=== PATIENT | female | born 1950 | race Caucasian/White ===

== ENCOUNTER 2016-10-08 11:17 | Inpatient (IN) | payer OTHER, MEDICAID ==
--- NOTE | 2016-10-08 11:52 | CPEKG ---
Heart Rate: 91 RR Interval: 659 P-R Interval: 132 QRSD Interval: 88 QT Interval: 388 QTC Interval: 478 P [place]: 62 QRS [place]: 38 T Wave [place]: 35 EKG Severity - BORDERLINE ECG - EKG Impression: SINUS RHYTHM EKG Impression: BORDERLINE INFERIOR Q WAVES Electronically Signed By: Joe Luo 08-Oct-2016 15:39:50
[2016-10-08] MEDS ORDERED: NS 1,000 ML IV ONE ×3 (12:03→19:00)
--- NOTE | 2016-10-08 12:11 | EDPHY ---
H & P Smoking Status: Never smoked Time Seen by Provider: 10/08/16 11:47 HPI/ROS: Chief complaint. Abdominal pain HPI. 66-year-old female with 3 day history of abdominal pain progressively worsening. It is described as epigastric and crampy. No radiation. Nausea but no vomiting. She has had diarrhea as well. She denies chest discomfort or trouble breathing. She has not had a fever. She had similar symptoms previously with a gallstone in the common bile duct that was removed endoscopically. She does continue to have her gallbladder. She does tell me bend that yesterday she did have some burning in her chest just briefly. ROS Constitutional. no fever/chills, no weakness Eyes. no problems with vision ENT. no sore throat, no nasal drainage Cardiovascular. Burning chest Respiratory. no shortness of breath, no cough Abdominal. Upper abdominal pain with nausea and diarrhea . no problems urinating MS. no calf pain/swelling, no neck/back pain, no joint pain Skin. no rash Lymph. no swollen glands Neuro. no headache, no dizziness, no difficulty walking or with speech (Joe Luo) Past Medical/Surgical History: Past medical history significant only for gallstone (Joe Luo) Social History: Single, nonsmoker, no alcohol (Joe Luo) Physical Exam: General Appearance: Alert pleasant well-developed female moderate distress vital signs are stable Eyes: Pupils equal and round no pallor or injection. ENT, Mouth: Mucous membranes are moist. Respiratory: There are no retractions, lungs are clear to auscultation. Cardiovascular: Regular rate and rhythm. Gastrointestinal: Abdomen is soft with some tenderness in the epigastrium. No right upper quadrant tenderness. No masses. Bowel sounds normal Neurological: Awake and alert, sensory and motor exams grossly normal. Skin: Warm and dry, no rashes. Musculoskeletal: Neck is supple nontender. Extremities symmetrical, full range of motion. Psychiatric: Patient is oriented X 3, there is no agitation. (Joe Luo) Constitutional: Initial Vital Signs Temperature (C) 37.0 C 10/08/16 11:26 Heart Rate 89 10/08/16 11:26 Respiratory Rate 20 10/08/16 11:26 Blood Pressure 149/105 H 10/08/16 11:26 O2 Sat (%) 97 10/08/16 11:26 O2 Delivery Mode Oxymask O2 (L/minute) 6 Allergies/Adverse Reactions: Penicillins Allergy (Verified 10/08/16 16:04) Other-Enter Comments Home Medications: Medication Instructions Recorded NK [No Known Home Meds] 10/08/16 Medical Decision Making - Diagnostics Imaging Results: Imaging Impressions Abdomen Ultrasound 10/08/16 12:18 Impression: 1. Cholelithiasis. Gallbladder wall is minimally thickened, but no pericholecystic fluid or hyperemia, possible component of chronic cholecystitis. Mild intrahepatic biliary ductal dilatation. The common bile duct measures 9 mm. 2. Stable right adrenal gland mass comparing ultrasound to prior CT. With the stability in size and prior CT appearance, it is most compatible with a benign adenoma. Chest X-Ray 10/08/16 14:25 Impression: Poor inspiratory effort with bronchovascular crowding at both lower lobes. Mild atelectasis left lower lobe. Probable mild underlying bronchitis. One-view chest x-ray shows poor inspiration but no evidence for pneumonia ( Joe Luo) Procedures: IV normal saline. Dilaudid for pain. Zofran for nausea. Subsequently the patient is complaining of back spasms. She is given Valium intravenously which helped resolve her back spasms (Joe Luo) ED Course/Re-evaluation: Apparently the blood work that was obtained was dilute so the patient is having her lab work redrawn. CT scan of the abdomen is ordered (Joe Luo) Differential Diagnosis: Differential diagnosis considered includes perforation, obstruction, pancreatitis, choledocholithiasis, cholecystitis (Nito Mckeon) Other Provider: I assumed care of the patient at 3:30 p.m. I reviewed her labs, she has elevated transaminases and alkaline phos. The consulted with Dr. Leslie who is on-call for Gastroenterology will see the patient in consultation. I consulted with Dr. Savage Garland who will admit the patient. I re-evaluated the patient personally at 4:00 p.m. She reports her pain has improved. She has minimal tenderness on exam. I do feel that she should be admitted to the hospital. I have canceled her abdominal CT. I will defer to the hospitalist service for consideration of general surgery consultation. (Nito Mckeon) Care Turn Over: Dr. Mckeon at 3:15 p.m. (Joe Luo) - Data Points Laboratory Results: Laboratory Results 10/08/16 14:57 10/08/16 14:57 10/08/16 10/08/16 10/08/16 14:57 14:57 14:33 WBC 6.32 10^3/uL 10^3/uL REJ (3.80-9.50) RBC 4.70 10^6/uL 10^6/uL REJ (4.18-5.33) Hgb 14.9 g/dL g/dL REJ (12.6-16.3) Hct 43.4 % % REJ (38.0-47.0) MCV 92.3 fL fL REJ (81.5-99.8) MCH 31.7 pg pg REJ (27.9-34.1) MCHC 34.3 g/dL g/dL REJ (32.4-36.7) RDW 12.6 % % REJ (11.5-15.2) Plt Count 197 10^3/uL 10^3/uL REJ (150-400) MPV 8.4 fL L fL REJ (8.7-11.7) Neut % (Auto) Not Reported REJ Lymph % (Auto) Not Reported REJ [place] % (Auto) Not Reported REJ Eos % (Auto) Not Reported REJ Baso % (Auto) Not Reported REJ Nucleat RBC Rel Count 0.0 % % REJ (0.0-0.2) Absolute Neuts (auto) Not Reported REJ Absolute Lymphs (auto) Not Reported REJ Absolute Monos (auto) Not Reported REJ Absolute Eos (auto) Not Reported REJ Absolute Basos (auto) Not Reported REJ Absolute Nucleated RBC 0.00 10^3/uL 10^3/uL REJ (0-0.01) Immature Gran % Not Reported REJ Seg Neutrophils % 77 % % Band Neutrophils % 13 % % Lymphocytes % 10 % % Immature Gran # Not Reported REJ Absolute Seg Neuts 4.87 10^/uL 10^/uL (1.70-6.50) Absolute Band Neuts 0.82 10^3/uL H 10^3/uL (0.00-0.70) Absolute Lymphocytes 0.63 10^3/uL L 10^3/uL (1.00-3.00) RBC/WBC/PLT Morphology NORMAL (NORMAL) Platelet Estimate ADEQUATE (ADEQ) Turbidity Sodium 144 mEq/L mEq/L (134-144) Potassium 3.6 mEq/L mEq/L (3.5-5.2) Chloride 111 mEq/L H mEq/L (97-110) Carbon Dioxide 20 mEq/l L mEq/l (22-31) Anion Gap 13 mEq/L mEq/L (8-16) BUN 14 mg/dL mg/dL (7-23) Creatinine 0.9 mg/dL mg/dL (0.6-1.0) Estimated GFR > 60 Glucose 131 mg/dL H mg/dL (70-100) Calcium 8.5 mg/dL mg/dL (8.5-10.4) Total Bilirubin 3.0 mg/dL H mg/dL (0.1-1.4) Conjugated Bilirubin 1.9 mg/dL H mg/dL (0.0-0.5) Unconjugated Bilirubin 1.1 mg/dL mg/dL (0.0-1.1) AST 849 IU/L H IU/L (14-46) ALT 511 IU/L H IU/L (9-52) Alkaline Phosphatase 194 IU/L H IU/L (38-126) Troponin I < 0.012 ng/mL ng/mL (0-0.034) Total Protein 7.1 g/dL g/dL (6.3-8.2) Albumin 4.1 g/dL g/dL (3.5-5.0) Lipase 145.0 IU/L IU/L (23-300) Specimen Hemolysis 10/08/16 10/08/16 14:33 12:45 WBC REJ RBC REJ Hgb REJ Hct REJ MCV REJ MCH REJ MCHC REJ RDW REJ Plt Count REJ MPV REJ Neut % (Auto) REJ Lymph % (Auto) REJ [place] % (Auto) REJ Eos % (Auto) REJ Baso % (Auto) REJ Nucleat RBC Rel Count REJ Absolute Neuts (auto) REJ Absolute Lymphs (auto) REJ Absolute Monos (auto) REJ Absolute Eos (auto) REJ Absolute Basos (auto) REJ Absolute Nucleated RBC REJ Immature Gran % REJ Seg Neutrophils % Band Neutrophils % Lymphocytes % Immature Gran # REJ Absolute Seg Neuts Absolute Band Neuts Absolute Lymphocytes RBC/WBC/PLT Morphology Platelet Estimate Turbidity Cancelled Sodium Cancelled Potassium Cancelled Chloride Cancelled Carbon Dioxide Cancelled Anion Gap Cancelled BUN Cancelled Creatinine Cancelled Estimated GFR Cancelled Glucose Cancelled Calcium Cancelled Total Bilirubin Cancelled Conjugated Bilirubin Cancelled Unconjugated Bilirubin Cancelled AST Cancelled ALT Cancelled Alkaline Phosphatase Cancelled Troponin I Cancelled Total Protein Cancelled Albumin Cancelled Lipase Cancelled Specimen Hemolysis Cancelled Medications Given: Discontinued Medications Diazepam (Valium Injection) 5 mg IVP EDNOW ONE Stop: 10/08/16 14:12 Last Admin: 10/08/16 14:47 Dose: 5 mg Hydromorphone HCl (Dilaudid) 1 mg IVP EDNOW ONE Stop: 10/08/16 12:19 Last Admin: 10/08/16 12:25 Dose: 1 mg Sodium Chloride (Ns) 1,000 mls @ 0 mls/hr IV ONCE ONE PRN Reason: Wide Open Stop: 10/08/16 12:04 Last Admin: 10/08/16 12:04 Dose: 1,000 mls Sodium Chloride (Ns) 1,000 mls @ 0 mls/hr IV ONCE ONE; Wide Open PRN Reason: Protocol Stop: 10/08/16 12:19 Last Admin: 10/08/16 15:04 Dose: 1,000 mls Ondansetron HCl (Zofran) 4 mg IVP EDNOW ONE Stop: 10/08/16 12:19 Last Admin: 10/08/16 12:26 Dose: 4 mg Departure - Departure Disposition: [facility] Inpatient Acute Clinical Impression: Choledocholithiasis Condition: Fair
[2016-10-08] MEDS ORDERED: HYDROmorphONE/DILAUDID 1 MG/ML SYR IVP ONE (12:18)
[2016-10-08] MEDS ORDERED: ONDANSETRON 4 MG/2 ML VIAL IVP ONE (12:18)
[2016-10-08] MEDS ORDERED: ONDANSETRON 4 MG/2 ML VIAL ONE (14:00)
[2016-10-08] MEDS ORDERED: DIAZEPAM 10 MG/2 ML SYR IVP ONE (14:11)
[2016-10-08 15:07] LABS: ADD MORPH? NO; ATYPICAL LYMPHOCYTE FLAG 0 (0-99); FRAGMENT RBC FLAG 0 (0-99); HEMATOCRIT 43.4 % (38.0-47.0); HEMOGLOBIN 14.9 g/dL (12.6-16.3); LIPEMIA HEMOLYSIS FLAG 90 (0-99); MEAN CELL HEMOGLOBIN 31.7 pg (27.9-34.1); MEAN CELL HEMOGLOBIN CONCENTR. 34.3 g/dL (32.4-36.7); MEAN CELL VOLUME 92.3 fL (81.5-99.8); MEAN PLATELET VOLUME 8.4 fL (8.7-11.7); PLATELET CLUMPS FLAG 0 (0-99); PLATELET COUNT 197 10^3/uL (150-400); RED CELL DISTRIBUTION WIDTH 12.6 % (11.5-15.2)
[2016-10-08 15:09] LABS: ADD DIFF? YES; ADD SCAN? NO; LEFT SHIFT FLG 140 (0-99)
[2016-10-08 15:26] LABS: ALANINE AMINOTRANSFERASE 511 IU/L (9-52); ALBUMIN 4.1 g/dL (3.5-5.0); ALKALINE PHOSPHATASE 194 IU/L (38-126); ANION GAP 13 mEq/L (8-16); BILIRUBIN-CONJUGATED 1.9 mg/dL (0.0-0.5); BILIRUBIN-UNCONJUGATED 1.1 mg/dL (0.0-1.1); CALCIUM 8.5 mg/dL (8.5-10.4); CARBON DIOXIDE 20 mEq/l (22-31); CHLORIDE 111 mEq/L (97-110); CREATININE 0.9 mg/dL (0.6-1.0); GLOMERULAR FILTRATION RATE > 60; GLUCOSE 131 mg/dL (70-100); POTASSIUM 3.6 mEq/L (3.5-5.2); SODIUM 144 mEq/L (134-144); TOTAL PROTEIN 7.1 g/dL (6.3-8.2)
[2016-10-08 15:32] LABS: ASPARTATE AMINOTRANSFERASE 849 IU/L (14-46)
[2016-10-08 15:37] LABS: TROPONIN I < 0.012 ng/mL (0-0.034)
[2016-10-08 15:45] LABS: PLATELET ESTIMATE ADEQUATE (ADEQ)
[2016-10-08] MEDS ORDERED: IOPAMIDOL (ISOVUE-300) 100 ML BTL ONE (15:59)
[2016-10-08] MEDS ORDERED: LORazepam 1 MG TAB PO PRN (17:18)
[2016-10-08] MEDS ORDERED: ACETAMINOPHEN 325 MG TAB PO PRN (17:18)
[2016-10-08] MEDS ORDERED: PROMETHAZINE HCL 25 MG/ML INJ IVP PRN (17:18)
[2016-10-08] MEDS ORDERED: HYDROmorphONE/DILAUDID 2 MG/ML INJ IVP PRN (17:37)
--- NOTE | 2016-10-08 17:38 | GHP ---
[f rep st] HISTORY AND PHYSICAL DATE OF ADMISSION: 10/08/2016 CHIEF COMPLAINT: Abdominal pain. HISTORY OF PRESENT ILLNESS: This is a 66-year-old female with history of choledocholithiasis 7 year s ago who never had her gallbladder removed. Presents to the emergency department today with abdomi nal pain. She states that her pain began Sunday at 4:00 p.m. after eating a "spicy meal." It was i n the right upper quadrant and moderate in nature. It then improved over Sunday but then today sh e awoke with worsening right upper quadrant pain and nausea and some chills. She denies any fevers. She has not seen her primary care doctor for a long time. PAST MEDICAL HISTORY: Gallstones. PAST SURGICAL HISTORY: Denies. HOME MEDICATIONS: None. ALLERGIES: Moxifloxacin SOCIAL HISTORY: She denies any alcohol, tobacco, or illicit drug use. FAMILY HISTORY: Reviewed and noncontributory. REVIEW OF SYSTEMS: Comprehensive 10-point review of systems was done and is negative, except for as mentioned in the HPI. PHYSICAL EXAMINATION: VITAL SIGNS: Blood pressure 137/88, pulse of 114, respiratory rate 18, O2 sa turation 92% on 2 L, temperature afebrile. GENERAL: No acute distress but groggy. NECK: Supple. No lymphadenopathy. CARDIOVASCULAR: Tachycardic. S1, S2. No JVD. No lower extremity edema. PU LMONARY: Lungs are clear. No wheezes, rales, or rhonchi. ABDOMEN: Soft, nondistended. There is no guarding or rebound tenderness. There is tenderness to palpation of the right upper quadrant. E XTREMITIES: No clubbing or cyanosis. NEURO: Cranial nerves 2-12 grossly intact. No focal motor o r sensory deficits. SKIN: Clear, no rashes. DIAGNOSTICS: WBC 6.3, hemoglobin 14.9, hematocrit 43.4, platelets 197, sodium 144, potassium 3.6, c hloride 111, CO2 20, BUN 14, creatinine 0.9, glucose 131, conjugated bilirubin 1.9, total bilirubin 3, AST 849, ALT 511, alkaline phosphatase 194, troponin was negative. Lipase within normal range. Abdominal ultrasound was reviewed and shows cholelithiasis with a possible component of chronic chol ecystitis. The common bile duct measures 9 mm. There is mild intrahepatic biliary ductal dilation. Stable right adrenal gland mass. Chest x-ray was reviewed and negative for pneumonia. EKG shows sinus rhythm, rate 91 beats per minute, no acute ischemic changes. ASSESSMENT: This is a 66-year-old female with history of gallstones presenting with: 1. Suspected biliary obstruction from choledocholithiasis. 2. Stable adrenal mass seen on abdominal ultrasound. PLAN: I discussed the case with Dr. Leslie from [facility] who is recommending an ERCP in morning. For now, she will be treated with IV fluids and will start antibiotics as well. The patient will be admitted to the hospital under inpatient status. /[id number]/MODL
--- NOTE | 2016-10-08 17:52 | GCON ---
[f rep st] CONSULTATION REFERRING PHYSICIAN: Nito Mckeon MD ADDITIONAL REQUESTING PHYSICIAN: Dr. Savage Garland. REASON FOR CONSULTATION: Presumed choledocholithiasis. Patient with elevated liver enzymes, dilate d common bile duct, known history of gallstones. HPI: The patient is a pleasant, 66-year-old female, who I met back in 2009 when she presented with choledocholithiasis. She underwent ERCP at that time, which was quite difficult. I placed a stent, had her come back in for a repeat procedure with my partner, Dr. Taylor. He performed an endoscopic ultrasound, stone removal and eventually also treated a stricture in her distal common bile duct. T his was back in January 2010. She has no visits in the hospital since [id number]. She says she has not seen a doctor in many years. Starting on Sunday at 4:00 p.m., she had similar type of pain, epigastric, right upper quadrant that was reminiscent of her pain when she had her choledochol ithiasis. It got better on Sunday and then worsened on Sunday and she presents to the emergency r oom for evaluation. She was noted to have elevated liver enzymes. Ultrasound was performed which s howed that she still has her gallbladder in with gallstones and she has a 9 mm common bile duct. I was then called to help and evaluate a presumed choledocholithiasis. Of note, the patient has no el evated white count or fevers, chills or sweats. I am now here to help evaluate and treat her presum ed choledocholithiasis. PAST MEDICAL HISTORY: ERCPs, EUS back in 2009. She has arthritis but does not take any medications for it. PAST SURGICAL HISTORY: None except for the ERCPs. MEDICATIONS AT HOME: None. ALLERGIES: No known drug allergies. SOCIAL HISTORY: She does not smoke. She drinks alcohol occasionally. FAMILY HISTORY: Mother had ovarian cancer at age 68. No colon cancer to her knowledge. The patien t has never had a colonoscopy. REVIEW OF SYSTEMS: A complete review of systems was performed, is negative other than noted on the HPI. Pertinent positives include her abdominal pain but denies nausea, vomiting, fevers, chills, sw eats. PHYSICAL EXAM: VITAL SIGNS: Blood pressure 157/88, pulse 114, 37.1 temperature and she is 92% O2 o n 2 L. EYES: JUSTIN. EOMI. MOUTH: No lesions. Moist mucous membranes. NECK: Supple. No JVD. No lymph nodes. BACK: No spine tenderness. No CVA tenderness. LUNGS: Clear to auscultation. CA RDIAC: S1, S2. Tachycardic. Regular rhythm. ABDOMEN: Bowel sounds are normal in pitch and frequ ency. Abdomen is soft with mild epigastric and right upper quadrant discomfort. No rebound. No gu arding. EXTREMITIES: No cyanosis, clubbing, or edema. NEUROLOGIC: Cranial nerves intact, nonfoca l. SKIN: No stigmata of advanced liver disease. No rashes. LABORATORY DATA: WBC 6.32, hemoglobin 14.9, hematocrit 43.4, platelet count 197. Pro time 12.9, IN R 0.96 sodium 144, potassium 3.6, chloride 111, bicarb 20, BUN 14, creatinine was 0.9, glucose 131, calcium 8.5, total bilirubin 3.0, unconjugated 1.9, AST 849, ALT 511, alkaline phosphatase 194, albu min 4.1, lipase 145. Hepatitis A antibody IgM negative. Hepatitis B surface antigen negative. Hep atitis B core antibody IgM negative. Hepatitis C antibody negative. Branch screen negative. That is all from 2009. Abdominal ultrasound from today: Cholelithiasis, gallbladder wall is minimally thickened but no per icholecystic fluid or hyperemia, possible component of chronic cholecystitis, mild intrahepatic bili whit[place] ductal dilatation, common bile duct measures 9 mm. Stable right adrenal gland mass compared to prior CT of 2010. PROCEDURE: On 02/17/2010: EUS, ERCP with stone extraction and stent removal. Impression choledoch olithiasis status post removal resolved biliary stricture. Operative report from January 06, 2010: ERCP with stone extraction, stent placement and stent remova l. Impression: Choledocholithiasis with removal of stones, distal common bile duct strictures, brian cement 10-Luxembourger stent. ERCP from January 01, 2010: Choledocholithiasis, unable to pass a balloon above that area nor trapez oid basket around that area. A 7-Luxembourger 5 cm stent placed in the distal common bile duct. ASSESSMENT: 1. Elevated liver enzymes. 2. Abnormal imaging with cholelithiasis and dilated duct, suggestive of choledocholithiasis. 3. Abdominal pain, consistent with choledocholithiasis. 4. Never had colon cancer screening. RECOMMENDATIONS: 1. Control pain. Hydrate the patient tonight. Transfer to floor. 2. Proceed with ERCP tomorrow a.m. unless there is any sign of cholangitis or significant decompens ation tonight. 3. Do recommend screening colonoscopy as an outpatient. 4. Do recommend patient to have her gallbladder removed after we clear the stones from her duct. 5. Recommend follow up with primary care on a more regular basis. It is not clear that she has bee n seen for years. Further recommendations to follow with the above and clinical course. Thank you for allowing me to participate in the patient's healthcare. Do not hesitate to call with any questions. /[id number]/MODL
[2016-10-08 18:45] LABS: INR 0.96 (0.83-1.16); PROTIME(PATIENT) 12.7 SEC (12.0-15.0)
[2016-10-08] MEDS: ONDANSETRON 4 MG/2 ML VIAL IVP PRN (19:30)
[2016-10-09 05:29] LABS: ADD DIFF? YES; ADD MORPH? NO; ATYPICAL LYMPHOCYTE FLAG 0 (0-99); FRAGMENT RBC FLAG 0 (0-99); HEMATOCRIT 36.1 % (38.0-47.0); HEMOGLOBIN 12.1 g/dL (12.6-16.3); LIPEMIA HEMOLYSIS FLAG 80 (0-99); MEAN CELL HEMOGLOBIN 31.3 pg (27.9-34.1); MEAN CELL HEMOGLOBIN CONCENTR. 33.5 g/dL (32.4-36.7); MEAN CELL VOLUME 93.3 fL (81.5-99.8); PLATELET CLUMPS FLAG 10 (0-99); PLATELET COUNT 172 10^3/uL (150-400); RED BLOOD CELL COUNT 3.87 10^6/uL (4.18-5.33)
[2016-10-09 05:30] LABS: LEFT SHIFT FLG 300 (0-99)
[2016-10-09 05:31] LABS: ADD SCAN? NO
[2016-10-09 05:48] LABS: ALANINE AMINOTRANSFERASE 450 IU/L (9-52); ALBUMIN 3.1 g/dL (3.5-5.0); ALKALINE PHOSPHATASE 140 IU/L (38-126); ANION GAP 12 mEq/L (8-16); ASPARTATE AMINOTRANSFERASE 420 IU/L (14-46); BILIRUBIN,TOTAL 5.2 mg/dL (0.1-1.4); CALCIUM 7.8 mg/dL (8.5-10.4); CARBON DIOXIDE 16 mEq/l (22-31); CHLORIDE 110 mEq/L (97-110); CREATININE 1.2 mg/dL (0.6-1.0); GLOMERULAR FILTRATION RATE 45; GLUCOSE 111 mg/dL (70-100); POTASSIUM 3.7 mEq/L (3.5-5.2); SODIUM 138 mEq/L (134-144); TOTAL PROTEIN 5.9 g/dL (6.3-8.2)
[2016-10-09 05:50] LABS: PLATELET ESTIMATE ADEQUATE (ADEQ)
[2016-10-09 05:56] LABS: BILIRUBIN-CONJUGATED 3.4 mg/dL (0.0-0.5); BILIRUBIN-UNCONJUGATED 1.8 mg/dL (0.0-1.1)
[2016-10-09] MEDS ORDERED: NS 1,000 ML IV ONE (06:30)
[2016-10-09] MEDS ORDERED: ERTAPENEM 1 GM in NS 100 ML IV SCH ×2 (06:47→07:00)
--- NOTE | 2016-10-09 07:28 | HOSPPROG ---
Hospitalist Progress Note Assessment/Plan: CTSP for tachycardia 66 yo female admitted for cholodocholithiasis. Did not appear to have cholangitis at that time. HR has been in 110-130 overnight then went up to 150' s. Apparently came down to low 100's before I saw patient. Pain is improving, she is feeling better overall heart mildly tachycardic but regular lungs clear abdomen with mild right upper quadrant tenderness but no rebound or guarding cxr looks a little wet wbc up but lft's better, metabolic acidosis a/p choledocholithiasis with probable cholangitis and possible sepsis * increased heart rate could be SVT since improved so quickly * but she does have elevated white blood cell count and worsening acidosis although she does feel better * with check lactate, blood cultures * change antibiotics to Invanz * transfer step-down possible fluid overload * will hold off on any more fluid boluses until we get lactate back * blood pressure is good 35 minutes of critical care time spent Objective: Vital Signs Temp Pulse Resp BP Pulse Ox 36.8 C 153 H 18 103/79 98 10/09/16 05:56 10/09/16 05:56 10/09/16 05:56 10/09/16 05:56 10/09/16 05:56 Laboratory Results 10/09/16 05:15 10/09/16 05:15 10/08/16 10/09/16 10/10/16 05:59 05:59 05:59 Intake Total 1150 1000 Balance 1150 1000 PT 12.7 SEC (12.0-15.0) 10/08/16 14:57 INR 0.96 (0.83-1.16) 10/08/16 14:57 ICD10 Worksheet Patient Problems: Problems Problem Status Onset Choledocholithiasis Acute
--- NOTE | 2016-10-09 08:59 | CPEKG ---
Heart Rate: 93 RR Interval: 645 P-R Interval: 132 QRSD Interval: 88 QT Interval: 396 QTC Interval: 493 P [place]: 55 QRS [place]: 35 T Wave [place]: 10 EKG Severity - BORDERLINE ECG - EKG Impression: SINUS RHYTHM EKG Impression: BORDERLINE INFERIOR Q WAVES EKG Impression: BORDERLINE PROLONGED QT INTERVAL EKG Impression: No significant change from October 08, 2016 Electronically Signed By: Joe Ford 09-Oct-2016 11:36:07
[2016-10-09] MEDS ORDERED: ENOXAPARIN 40 MG/0.4 ML SYR SC SCH (09:00)
[2016-10-09] MEDS ORDERED: GLUCAGON,HUMAN RECOMBINANT 1 MG VIAL ONE (09:03)
[2016-10-09] MEDS ORDERED: IOTHALAMATE MEG (CONRAY) 50 ML VIAL IV ONE (09:04)
--- NOTE | 2016-10-09 09:22 | PDANEPAE ---
ANE History of Present Illness gallstones ANE Past Medical History - Cardiovascular History Hx Hypertension: No Hx Arrhythmias: No Hx Chest Pain: No Hx Coronary Artery / Peripheral Vascular Disease: No Hx CHF / Valvular Disease: No Hx Palpitations: No - Pulmonary History Hx COPD: No Hx Asthma/Reactive Airway Disease: No Hx Recent Upper Respiratory Infection: No Hx Oxygen in Use at Home: No Hx Sleep Apnea: No - Endocrine History Hx Diabetes: No Hypothyroid: No Hyperthyroid: No Obesity: yes - Chronic Pain History Chronic Pain: No ANE Review of Systems - Exercise capacity METS (RN): 4 METS - Systems Cardiac: Reports: no symptoms Respiratory: Reports: no symptoms Gastrointestinal: Reports: abdominal pain ANE Patient History - Allergies Allergies/Adverse Reactions: Penicillins Allergy (Verified 10/08/16 16:04) Other-Enter Comments - Home Medications Home Medications: NK [No Known Home Meds] 10/08/16 [Last Taken Unknown] - Smoking Hx Smoking Status: Never smoked - Alcohol Use Alcohol Use: Rarely - Family Anes Hx Family Anes Hx: none ANE Labs/Vital Signs - Labs Result Diagrams: 10/09/16 12:05 10/09/16 05:15 - Vital Signs Blood Pressure: 121/77 Heart Rate: 101 Respiratory Rate: 20 O2 Sat (%): 100 Height: 162.56 cm Weight: 83.915 kg ANE Physical Exam - Airway Neck exam: FROM Mallampati Score: Class 2 Mouth exam: normal dental/mouth exam - Pulmonary Pulmonary: no respiratory distress, no rales or rhonchi, clear to auscultation - Cardiovascular Cardiovascular: no murmur, rub, or gallop, tachycardia - ASA Status ASA Status: II, III ANE Anesthesia Plan Anesthesia Plan: general endotracheal anesthesia
[2016-10-09] MEDS ORDERED: LR 1,000 ML IV ONE (09:48)
[2016-10-09] MEDS ORDERED: fentaNYL 100 MCG/2 ML INJ ONE (10:06)
[2016-10-09] MEDS ORDERED: REMIFENTANIL HCL 1 MG VIAL ONE (10:06)
[2016-10-09] MEDS ORDERED: PROPOFOL/EMULSION 500 MG/50 ML BOTTLE IV ONE (10:06)
[2016-10-09] MEDS ORDERED: PROPOFOL 200 MG/20 ML VIAL ONE (10:06)
[2016-10-09] MEDS ORDERED: LIDOCAINE 2% 5 ML SDV ONE (10:07)
[2016-10-09] MEDS ORDERED: ONDANSETRON 4 MG/2 ML VIAL ONE (10:08)
[2016-10-09] MEDS ORDERED: ROCURONIUM 50 MG/5 ML VIAL ONE (10:08)
[2016-10-09] MEDS ORDERED: KETOROLAC 30 MG/1 ML SDV ONE (10:15)
[2016-10-09] MEDS ORDERED: DEXAMETHASONE 4 MG/ML VIAL ONE (10:15)
[2016-10-09] MEDS ORDERED: CALCIUM CHLORIDE 1 GM/10 ML INJ ONE (10:16)
[2016-10-09] MEDS ORDERED: INDOMETHACIN 50 MG SUPP PR ONE (10:25)
[2016-10-09] MEDS ORDERED: SUGAMMADEX SODIUM 200 MG/2 ML VIAL IVP ONE (11:21)
--- NOTE | 2016-10-09 12:03 | POSTOPPROG ---
Post Op Note Date of Operation: 10/12/16 Surgeon: Evin Leslie Anesthesiologist: ray Anesthesia: GET(General Endotracheal) Pre-op Diagnosis: abnml songran, elevated lfts, presumed cbd stone Post-op Diagnosis: pus in bile duct, but no obvius stone, small amount of debris , ? cholecysti Indication: abnl songram, lft's elevated Procedure: ERCp with balloon pasage and stent placement 10 [place] 7 mcm Findings: pus and small amount of debris from bile duct, dont visualizr cystic duct Inf/Abcess present in the surg proc area at time of surgery?: Yes Depth: Organ Space (common bile duct and maybe GB) Complications: none during procedure after procedure pt dropped her CO2 and despite multiple maneuvers by anesthesia she had a code blue unclear if primary cardiac or pulmonary such as PE please see code details were able to establish cardiac rhythm and pt was transferred to ICU for further care
[2016-10-09] MEDS ORDERED: PROPOFOL/EMULSION 1,000 MG/100 ML BOTTLE IV ONE (12:06)
[2016-10-09 12:13] LABS: ABSOLUTE NRBC COUNT 0.03 10^3/uL (0-0.01); ADD DIFF? YES; ADD MORPH? NO; ATYPICAL LYMPHOCYTE FLAG 0 (0-99); FRAGMENT RBC FLAG 0 (0-99); HEMATOCRIT 41.1 % (38.0-47.0); HEMOGLOBIN 13.3 g/dL (12.6-16.3); LIPEMIA HEMOLYSIS FLAG 80 (0-99); MEAN CELL HEMOGLOBIN CONCENTR. 32.4 g/dL (32.4-36.7); MEAN CELL VOLUME 95.8 fL (81.5-99.8); MEAN PLATELET VOLUME 9.3 fL (8.7-11.7); NRBC-AUTO% 0.1 % (0.0-0.2); PLATELET CLUMPS FLAG 20 (0-99); PLATELET COUNT 146 10^3/uL (150-400); RED BLOOD CELL COUNT 4.29 10^6/uL (4.18-5.33); RED CELL DISTRIBUTION WIDTH 13.2 % (11.5-15.2)
[2016-10-09 12:14] LABS: ADD SCAN? NO; LEFT SHIFT FLG 300 (0-99)
[2016-10-09 12:19] LABS: CALCULATED OXYGEN SATURATION 91 % (92-95); O2 CONCENTRATIION 100 % (0-100)
[2016-10-09] MEDS ORDERED: HEPARIN/DEXTROSE 25,000 UNIT/500 ML BAG ONE (12:20)
--- NOTE | 2016-10-09 12:23 | CPEKG ---
Heart Rate: 118 RR Interval: 508 P-R Interval: 140 QRSD Interval: 96 QT Interval: 352 QTC Interval: 494 P [place]: 48 QRS [place]: 48 T Wave [place]: -9 EKG Severity - BORDERLINE ECG - EKG Impression: SINUS TACHYCARDIA EKG Impression: BORDERLINE INFERIOR Q WAVES EKG Impression: BORDERLINE PROLONGED QT INTERVAL EKG Impression: Slow R-wave progression, new since October 09, 2016, 8:57. This may just relate to EKG Impression: lead placement. EKG Impression: More prominent ST elevation in lead 3 compared to October 09, 2016, 8:57. Electronically Signed By: Joe Ford 09-Oct-2016 16:01:54
[2016-10-09 12:24] LABS: INR 1.63 (0.83-1.16); PROTIME(PATIENT) 19.4 SEC (12.0-15.0)
[2016-10-09 12:25] LABS: APTT 47.1 SEC (23.0-38.0)
[2016-10-09 12:26] LABS: ANION GAP 19 mEq/L (8-16); CALCIUM 9.1 mg/dL (8.5-10.4); CARBON DIOXIDE 15 mEq/l (22-31); CHLORIDE 109 mEq/L (97-110); CREATININE 1.4 mg/dL (0.6-1.0); GLOMERULAR FILTRATION RATE 38; GLUCOSE 108 mg/dL (70-100); POTASSIUM 3.9 mEq/L (3.5-5.2); SODIUM 143 mEq/L (134-144)
[2016-10-09] MEDS: PROPOFOL/EMULSION 100 ML IV SCH ×2 (12:26→16:33)
[2016-10-09] MEDS ORDERED: PHENYLEPHRINE HCL 50 MG in D5W 250 ML IV SCH ×2 (12:30→19:00)
[2016-10-09] MEDS ORDERED: HEPARIN 10,000 UNIT/10 ML MDV ONE (12:33)
[2016-10-09 12:38] LABS: TROPONIN I 0.102 ng/mL (0-0.034)
--- NOTE | 2016-10-09 12:39 | POSTANESTH ---
Post Anesthetic Evaluation Cardiovascular Status: Other, See Comment Respiratory Status: Other, See Comment Level of Consciousness/Mental Status: Other, See Comment Pain Control: Adequate, Prn Tx Ordered Nausea/Vomiting Control: Adequate, Prn Tx Ordered Complications Possibly Related to Anesthesia: Other, See Comments (Pt became asystolic at end of procedure. CPR begun. Pt. stabilized and transferred to ICU. Pt. remained intubated and ventilated. CPR begun a second time in the ICU. R Radial a-line placed by Dr. Briscoe. Pt. stabilized again. Report given to Drs. Lozano and Roverto at bedside.)
[2016-10-09] MEDS ORDERED: LR 500 ML IV PRN (12:41)
[2016-10-09] MEDS ORDERED: fentaNYL 100 MCG/2 ML INJ IVP PRN ×2 (12:41)
[2016-10-09] MEDS ORDERED: NALOXONE HCL 0.4 MG/ML INJ IVP PRN (12:41)
[2016-10-09] MEDS ORDERED: HEPARIN 10,000 UNIT/10 ML MDV IVP ONE (12:49)
[2016-10-09] MEDS ORDERED: HEPARIN 10,000 UNIT/10 ML MDV IVP PRN (12:49)
--- NOTE | 2016-10-09 12:53 | GPN ---
[f rep st] PROCEDURE NOTE DATE OF PROCEDURE: 10/09/2016 She used to see Harvinder Regaladoley, but he has moved back to [place]. PROCEDURE: Endoscopic retrograde cholangiopancreatography with balloon passage and stent placement. Procedure report indicated date of service dictations today 10/09/2016. INDICATION: Presumed choledocholithiasis with mildly dilated common bile duct of 9 mm, elevated LFT s, and gallbladder showing cholelithiasis. Patient did have choledocholithiasis back in 2009 and laila zuniga had her gallbladder removed despite recommendations for such. POSTOPERATIVE DIAGNOSIS: Pus and small amount of debris removed from the bile duct with balloon pas brianna. No obvious stone noted. Cystic duct is not visualized, query cholecystitis. INFORMED CONSENT: I had a detailed discussion with the patient regarding the procedure, alternative s, benefits, risks including bleeding, perforation, infection, risk of medication, of pancreatitis i nformed consent was signed and witnessed. COMPLICATIONS: None during the procedure. However, postprocedure, patient dropped her CO2 which th ought might have been secondary to venous compression. We moved her over to her back; however, she continued to have low blood pressure and low oxygenation. Despite multiple maneuvers by the anesthe siologist, she had a code blue. It is unclear if this was primary cardiac or pulmonary such as a PE . Code blue was called. Please see code note for details. They responded very quickly. They were able to regain a rhythm within a short period of time. She was stabilized and moved to the intensi ve care unit for further evaluation. IMPRESSION: 1. Pus and small amount of debris in common bile duct. No obvious large stone noted. 2. Query cholecystitis given nonvisualization of the cystic duct and no significant debris in the b ile duct. 3. Post procedure code blue. Patient resuscitated appropriately and transferred to ICU for further evaluation. RECOMMENDATIONS: 1. Further evaluation for cardiac or pulmonary issues as per cardiology pulmonary parts specialist. 2. I do think the patient will need her gallbladder removed prior to being discharged pending resul ts of this postprocedure event. 3. Follow clinically. 4. For further information, follow results above and clinical course. /[id number]/MODL
[2016-10-09 12:55] LABS: BICARBONATE 16 mEq/L (22-26); MEASURED OXYGEN SATURATION 94 % (92-95); PCO2 35 mmHg (34-38); PO2 70 mmHg (65-75); TCO2 18 mEq/L (23-27)
[2016-10-09 12:57] LABS: O2 CONCENTRATIION 100 % (0-100); P/F RATIO 70 RATIO; SIMV YES
[2016-10-09 12:58] LABS: END TIDAL CO2 37; PATIENT RATE 22; PRESSURE SUPPORT 10
[2016-10-09] MEDS ORDERED: HEPARIN/DEXTROSE 500 ML IV SCH (13:00)
[2016-10-09 13:24] LABS: PLATELET ESTIMATE DECREASED (ADEQ)
--- NOTE | 2016-10-09 13:28 | GCON ---
[f rep st] CONSULTATION SITE PROMOTION AGENT CONSULTATION The patient is a 66-year-old white female who was admitted on 10/08/2016 with abdominal pain. She h as a longstanding history of gallbladder issues. She was admitted to step-down unit, was subsequent ly brought to the endoscopy lab, and underwent ERCP. Apparently they feel that she had passed a sto ne, but there was some pus coming from the gallbladder; however, shortly thereafter, she underwent c ardiac arrest. This was fairly sudden. She was resuscitated in the endoscopy suite, was subsequent ly transferred to the intensive care unit where she arrested again. After a round of epinephrine an d bicarb, she again responded. Chest x-ray reveals pulmonary edema. Echocardiogram reveals right-s ided compromise. Currently, she is moving all extremities. PAST MEDICAL HISTORY: Significant for gallstones. PAST SURGICAL HISTORY: None. ALLERGIES: Moxifloxacin. SOCIAL HISTORY: No history of tobacco use. No history of alcohol use. She has good family support . PHYSICAL EXAMINATION: VITAL SIGNS: Blood pressure 121/77, pulse 101, respirations 20, temperature 36.8, oxygen saturation 100% on mechanical ventilation. GENERAL: She is a morbidly obese 66-year-o ld white female who is sedated on mechanical ventilation. HEENT: Eyes are PERRLA, EOMI. Throat: Endotracheal tube is in good position. NECK: Supple. No cervical adenopathy. HEART: Regular rat e and rhythm with a 2/6 systolic murmur left sternal border without radiation. LUNGS: Diminished b reath sounds and few rales. ABDOMEN: Soft, nontender. Bowel sounds are present. EXTREMITIES: No clubbing, cyanosis but 1+ lower extremity edema. LABORATORIES: White count is 22,000, hemoglobin 13, hematocrit 41, platelet count is 146. INR is 1 .63. pH 7.15, pCO2 of 45, pO2 of 67, bicarb 16, oxygen saturation 91%. Sodium 143, potassium 4.3, chloride 109, CO2 is 15, BUN 17, creatinine 1.4, glucose is 108. Again, chest x-ray reviewed by myself shows endotracheal tube in good position and diffuse pulmonary edema. IMPRESSION: 1. Cholecystitis. 2. Status post ERCP. 3. Status post arrest. 4. Acute respiratory failure. 5. Morbid obesity. 6. Incomplete database. 7. Probable pulmonary embolus. RECOMMENDATIONS: 1. Will obtain EKG. 2. Will obtain ultrasound lower extremity. 3. Patient is not a candidate for lytics at this time as her blood pressure is stabilized. Will st art patient on full dose heparin. 4. DVT prophylaxis. 5. Stress ulcer prophylaxis. 6. Continue mechanical ventilation for now. 7. Arterial line has been placed. /[id number]/MODL
--- NOTE | 2016-10-09 13:32 | GPN ---
[f rep st] PROCEDURE NOTE CODE NOTE Code was called and proceeded following ACLS guidelines. Patient received epinephrine as well as bi carb and responded with blood pressure and pulse. /[id number]/MODL
--- NOTE | 2016-10-09 17:10 | ECHO ---
[id number] + + [address] : : [facility] [address] : : [phone] + + Adult Echocardiographic Report + + :Name: TYSHAWN DUONG KStudy Date: 10/09/2016 12:08 PM : : Hospital Admission Number: [id number] :: 1950 Gender: Female : :Age: 66 yrs Race: WH : :Reason For Study: Eval LV Fx : :History: S/P Arrest : + + Doppler Measurements \T\ Calculations TR max nazia: 276.9 cm/sec TR max P.7 mmHg RAP systole: 10.0 mmHg RVSP(TR): 40.7 mmHg Left Ventricle The left ventricular ejection fraction is normal. Flattened septum is consistent with RV pressure/volume overload. Right Ventricle The right ventricle is moderate to severely dilated. The right ventricular systolic function is severely reduced. Tricuspid Valve There is mild tricuspid regurgitation. RVSP most likely underestimated. Aortic Valve There is no aortic stenosis. Pericardium/Pleural There is no pericardial effusion. Conclusion Limited views were obtained. The left ventricular ejection fraction is normal. Flattened septum is consistent with RV pressure/volume overload. The right ventricle is moderate to severely dilated. The right ventricular systolic function is severely reduced. There is no obvious thrombus noted in the RVOT. There is mild tricuspid regurgitation. RVSP most likely underestimated. There is no aortic stenosis. There is no pericardial effusion. Final Reading Physician: Dylan Benz signed on 10/09/2016 05:09 PM Ordering Physician: Sameer Lozano Performed By: Pete Khalil, RONALCS
--- NOTE | 2016-10-09 17:17 | HOSPPROG ---
Hospitalist Progress Note Assessment/Plan: * Cardiac arrest -ECHO consistent with acute PE -IV heparin -no lytics per Dr. Lozano - hemodynamically stable -small thrombus on LE US - consider CTA chest to confirm PE when stable * Cholangitis s/p ERCP with stent -continue Invanz -lap griffin prior to discharge * Sepsis - improved with IVF * Acute respiratory failure - stable on vent -bilateral pulmonary infiltrates - doubt CHF -recheck CXR in am * Gas - common femoral vein - unclear etiology -consider CT A/P when stabilized Subjective: Arrest during ERCP, arrested again back in ICU, now intubated Objective: Vital Signs Temp Pulse Resp BP Pulse Ox 37.9 C 117 H 20 107/72 97 10/09/16 16:00 10/09/16 16:00 10/09/16 16:00 10/09/16 16:00 10/09/16 16:00 Laboratory Results 10/09/16 12:05 10/09/16 12:05 10/08/16 10/09/16 10/10/16 05:59 05:59 05:59 Intake Total 1150 1000 Balance 1150 1000 PT 19.4 SEC (12.0-15.0) H 10/09/16 12:13 INR 1.63 (0.83-1.16) H 10/09/16 12:13 d/w Dr. Lozano - he was present during COR - ECHO c/w acute PE CXR viewed, my personal interpretation is - bilateral pulmonary infiltrates, CHF less likely IV fentanyl sedation on vent - Physical Exam Constitutional: no apparent distress, appears nourished, not in pain Cardiovascular: regular rate and rhythym, no murmur, rub, or gallop Respiratory: no respiratory distress, no rales or rhonchi, clear to auscultation Gastrointestinal: normoactive bowel sounds, soft, non-tender abdomen, no palpable masses Skin: no rashes or abrasions, no fluctuance, no induration Neurologic: No AAOx3 Psychiatric: other (intubated and sedated), No interacting appropriately ICD10 Worksheet Patient Problems: Problems Problem Status Onset Choledocholithiasis Acute
[2016-10-09] MEDS: NS 1,000 ML IV SCH (17:18)
[2016-10-09] MEDS ORDERED: NOREPINEPHRINE BITARTRATE 4 MG in D5W 500 ML IV SCH (18:30)
[2016-10-09 18:37] LABS: BASE EXCESS -6.9 mEq/L (-2.5-2.5); BICARBONATE 15 mEq/L (22-26); MEASURED OXYGEN SATURATION 96 % (92-95); PCO2 24 mmHg (34-38); PO2 85 mmHg (65-75); TCO2 16 mEq/L (23-27)
[2016-10-09] MEDS ORDERED: NS 2,500 ML IV ONE (18:38)
[2016-10-09] MEDS ORDERED: NOREPINEPHRINE BITARTRATE 4 MG in NS 500 ML IV SCH (19:00)
[2016-10-09] MEDS ORDERED: VASOPRESSIN/DEXTROSE 250 ML IV SCH (19:00)
[2016-10-09] MEDS ORDERED: NOREPINEPHRINE/NS 500 ML IV SCH (19:00)
[2016-10-09 19:02] LABS: MIXED VENOUS O2 SATURATION 64 % (65-75)
[2016-10-09 19:11] LABS: ADD DIFF? YES; ADD MORPH? NO; ATYPICAL LYMPHOCYTE FLAG 0 (0-99); FRAGMENT RBC FLAG 10 (0-99); HEMATOCRIT 39.8 % (38.0-47.0); HEMOGLOBIN 13.7 g/dL (12.6-16.3); LIPEMIA HEMOLYSIS FLAG 90 (0-99); MEAN CELL HEMOGLOBIN 31.3 pg (27.9-34.1); MEAN CELL HEMOGLOBIN CONCENTR. 34.4 g/dL (32.4-36.7); MEAN CELL VOLUME 90.9 fL (81.5-99.8); MEAN PLATELET VOLUME 9.4 fL (8.7-11.7); PLATELET CLUMPS FLAG 10 (0-99); PLATELET COUNT 171 10^3/uL (150-400); RED BLOOD CELL COUNT 4.38 10^6/uL (4.18-5.33); RED CELL DISTRIBUTION WIDTH 13.2 % (11.5-15.2)
[2016-10-09 19:12] LABS: ADD SCAN? NO; LEFT SHIFT FLG 300 (0-99)
[2016-10-09 19:15] LABS: TROPONIN I 3.69 ng/mL (0-0.034)
--- NOTE | 2016-10-09 19:22 | PDHOSCONS ---
Hospitalist Consult Hospitalist Consult: 30 minutes of additional critical care time spent at bedside with patient and nurse, collaborating with Dr. Lazaro Garnica, regarding the issues as outlined below: - called by nurse at 6:32 p.m. the patient's systolic blood pressure was in the 70s, tachycardic with heart rate around 110, febrile with a temperature of 38.1degrees - repeat chest x-ray demonstrated diffuse bilateral pulmonary infiltrates, unclear whether this is secondary to pneumonia or ARDS - arterial blood gas demonstrated a pH of 7.43 with a PaO2 of 85 on FiO2 of 80% - lactic acid 3.1, mixed venous of 68, CVP of 13 - physical exam demonstrates diffuse bilateral rhonchi, regular tachycardia, normal cap refill and no mottling, abdomen is obese, difficult to discern whether she has tenderness in the right upper quadrant, trace bilateral lower extremity edema - patient was initially placed in Trendelenburg position and given IV fluids wide open, then was stabilized on Minesh-Synephrine, transitioned to Levophed and septic shock protocol was initiated - antibiotics adjusted from ertapenem to meropenem and vancomycin given that patient may be experiencing either involving cholecystitis versus intra- abdominal abscess versus aspiration pneumonia and patient's clinical scenario has not been stable on ertapenem - echocardiogram reviewed which demonstrates severe reduction in right ventricular function and lower extremity ultrasounds demonstrate likely presence of deep venous thromboses turning into pulmonary emboli -discussed with Dr. Garnica, will get a stat CT angiogram for further workup now that the patient is stabilizing from a hemodynamic standpoint evaluate whether she has massive pulmonary emboli requiring catheter directed lytics by Interventional Radiology - will also get an upper abdominal CT with IV contrast to discern whether she has had worsening intra-abdominal infection which would require surgical consultation immediately - given her acute kidney injury, she will continue receiving IV fluids as well as Mucomyst prophylactically
[2016-10-09] MEDS ORDERED: SODIUM BICARBONATE 50 MEQ/50 ML SYR IVP ONE (19:30)
[2016-10-09 19:34] LABS: PROCALCITONIN 14.57 ng/mL (0.02-0.10)
[2016-10-09 19:37] LABS: ANION GAP 13 mEq/L (8-16); CALCIUM 7.8 mg/dL (8.5-10.4); CARBON DIOXIDE 20 mEq/l (22-31); CHLORIDE 109 mEq/L (97-110); CREATININE 1.7 mg/dL (0.6-1.0); GLOMERULAR FILTRATION RATE 30; GLUCOSE 151 mg/dL (70-100); POTASSIUM 3.4 mEq/L (3.5-5.2); SODIUM 142 mEq/L (134-144)
[2016-10-09] MEDS ORDERED: IOPAMIDOL (ISOVUE 370) 100 ML BTL IV ONE (19:57)
[2016-10-09] MEDS: MEROPENEM 1 GM in NS 100 ML IV SCH (19:58)
[2016-10-09] MEDS ORDERED: ACETYLCYSTEINE 10% 30 ML VIAL IH ONE (20:00)
[2016-10-09] MEDS ORDERED: ALBUTEROL 3 ML DEYVIAL ONE (20:16)
[2016-10-09 20:19] LABS: BICARBONATE 18 mEq/L (22-26); MEASURED OXYGEN SATURATION 91 % (92-95); PCO2 29 mmHg (34-38); PO2 64 mmHg (65-75); TCO2 19 mEq/L (23-27)
[2016-10-09 20:20] LABS: SIMV YES
[2016-10-09 20:21] LABS: END TIDAL CO2 26; O2 CONCENTRATIION 80 % (0-100); P/F RATIO 80 RATIO; PATIENT RATE 16; PRESSURE SUPPORT 10
[2016-10-09] MEDS: CHLORHEXIDINE GLUCONATE 15 ML UDL PO SCH (20:30)
[2016-10-09 20:36] LABS: MIXED VENOUS O2 SATURATION 55 % (65-75)
[2016-10-09 20:43] LABS: PLATELET ESTIMATE ADEQUATE (ADEQ)
[2016-10-09 20:44] LABS: TOXIC VACUOLIZATION PRESENT
[2016-10-09] MEDS: VANCOMYCIN 1.25 GM in D5W 250 ML IV SCH (21:20)
[2016-10-09 21:56] LABS: MIXED VENOUS O2 SATURATION 67 % (65-75)
[2016-10-09] MEDS: fentaNYL/NACL 100 ML IV SCH (22:18)
[2016-10-09 22:31] LABS: BICARBONATE 18 mEq/L (22-26); MEASURED OXYGEN SATURATION 91 % (92-95); PCO2 32 mmHg (34-38); PO2 64 mmHg (65-75); SIMV YES; TCO2 19 mEq/L (23-27)
[2016-10-09 22:32] LABS: END TIDAL CO2 27; O2 CONCENTRATIION 90 % (0-100); P/F RATIO 71 RATIO; PATIENT RATE 16; PRESSURE SUPPORT 10
[2016-10-09] MEDS: FAMOTIDINE 20 MG/NACL 50 ML IV SCH (22:36)
[2016-10-09 22:40] LABS: MIXED VENOUS O2 SATURATION 62 % (65-75)
[2016-10-09] MEDS: HEPARIN 5,000 UNIT/0.5 ML SYR SC SCH (23:32)
[2016-10-09 23:37] LABS: MIXED VENOUS O2 SATURATION 66 % (65-75)
[2016-10-10 00:21] LABS: MIXED VENOUS O2 SATURATION 73 % (65-75)
[2016-10-10 00:47] LABS: ANION GAP 9 mEq/L (8-16); CALCIUM 7.1 mg/dL (8.5-10.4); CARBON DIOXIDE 18 mEq/l (22-31); CHLORIDE 114 mEq/L (97-110); CREATININE 1.6 mg/dL (0.6-1.0); GLOMERULAR FILTRATION RATE 32; GLUCOSE 177 mg/dL (70-100); POTASSIUM 3.6 mEq/L (3.5-5.2); SODIUM 141 mEq/L (134-144)
[2016-10-10] MEDS ORDERED: PROTOCOL CALCIUM 1 DOSE IV PRN (01:11)
[2016-10-10] MEDS ORDERED: PROTOCOL POTASSIUM 1 DOSE MISC PRN (01:11)
[2016-10-10] MEDS ORDERED: PROTOCOL MAGNESIUM 1 DOSE IV PRN (01:11)
[2016-10-10] MEDS ORDERED: POTASSIUM Cl (KCl) 50 ML IV SCH (01:29)
[2016-10-10] MEDS ORDERED: ALBUMIN 5% 500 ML IV ONE (01:30)
[2016-10-10] MEDS ORDERED: CALCIUM GLUCONATE 50 ML IV ONE ×2 (01:30→06:19)
[2016-10-10] MEDS ORDERED: MAGNESIUM SULF 1 GM/DEXTROSE 100 ML IV ONE (01:41)
[2016-10-10] MEDS ORDERED: POTASSIUM Cl (KCl) 50 ML IV ONE ×3 (02:00→18:24)
[2016-10-10] MEDS: PROPOFOL/EMULSION 100 ML IV SCH ×4 (02:03→21:16)
[2016-10-10 06:08] LABS: BASE EXCESS -5.3 mEq/L (-2.5-2.5); BICARBONATE 18 mEq/L (22-26); IONIZED CALCIUM 1.11 MMOL/L (1.12-1.30); MEASURED OXYGEN SATURATION 90 % (92-95); PCO2 32 mmHg (34-38); PO2 62 mmHg (65-75); TCO2 19 mEq/L (23-27)
[2016-10-10 06:12] LABS: END TIDAL CO2 26; O2 CONCENTRATIION 100 % (0-100); P/F RATIO 62 RATIO; PATIENT RATE 18; PRESSURE SUPPORT 10; SIMV YES
[2016-10-10] MEDS: HEPARIN 5,000 UNIT/0.5 ML SYR SC SCH ×3 (06:20→21:16)
[2016-10-10 06:24] LABS: ADD DIFF? YES; ADD MORPH? NO; ATYPICAL LYMPHOCYTE FLAG 0 (0-99); FRAGMENT RBC FLAG 0 (0-99); HEMATOCRIT 39.7 % (38.0-47.0); HEMOGLOBIN 13.6 g/dL (12.6-16.3); LIPEMIA HEMOLYSIS FLAG 90 (0-99); MEAN CELL HEMOGLOBIN 31.1 pg (27.9-34.1); MEAN CELL HEMOGLOBIN CONCENTR. 34.3 g/dL (32.4-36.7); MEAN CELL VOLUME 90.6 fL (81.5-99.8); MEAN PLATELET VOLUME 9.8 fL (8.7-11.7); PLATELET CLUMPS FLAG 0 (0-99); PLATELET COUNT 133 10^3/uL (150-400); RED BLOOD CELL COUNT 4.38 10^6/uL (4.18-5.33); RED CELL DISTRIBUTION WIDTH 13.4 % (11.5-15.2)
[2016-10-10 06:35] LABS: ALANINE AMINOTRANSFERASE 305 IU/L (9-52); ALBUMIN 2.8 g/dL (3.5-5.0); ALKALINE PHOSPHATASE 138 IU/L (38-126); ASPARTATE AMINOTRANSFERASE 225 IU/L (14-46); BILIRUBIN,TOTAL 4.2 mg/dL (0.1-1.4); CALCIUM 7.6 mg/dL (8.5-10.4); CARBON DIOXIDE 17 mEq/l (22-31); CHLORIDE 111 mEq/L (97-110); CREATININE 1.6 mg/dL (0.6-1.0); GLOMERULAR FILTRATION RATE 32; GLUCOSE 158 mg/dL (70-100); MAGNESIUM 2.1 mg/dL (1.6-2.3); SODIUM 140 mEq/L (134-144); TOTAL PROTEIN 5.4 g/dL (6.3-8.2)
[2016-10-10 06:36] LABS: ANION GAP 12 mEq/L (8-16); POTASSIUM 4.2 mEq/L (3.5-5.2)
[2016-10-10 06:44] LABS: ADD SCAN? NO; LEFT SHIFT FLG 300 (0-99)
[2016-10-10 06:54] LABS: PROCALCITONIN 16.41 ng/mL (0.02-0.10)
[2016-10-10 06:55] LABS: BILIRUBIN-CONJUGATED 3.5 mg/dL (0.0-0.5); BILIRUBIN-UNCONJUGATED 0.7 mg/dL (0.0-1.1)
[2016-10-10] MEDS: MEROPENEM 1 GM in NS 100 ML IV SCH ×2 (07:34→19:31)
[2016-10-10] MEDS ORDERED: DOPamine/DEXTROSE/250 ML BAG IV ONE (07:43)
[2016-10-10] MEDS ORDERED: EPINEPHrine 1 MG/10 ML SYR IVP ONE (07:43)
[2016-10-10] MEDS ORDERED: MAGNESIUM SULF 1 GM/DEXTROSE 100 ML BAG IV ONE (07:43)
[2016-10-10] MEDS ORDERED: ATROPINE SULFATE 1 MG/10 ML SYR ONE (07:43)
[2016-10-10] MEDS ORDERED: SODIUM BICARBONATE 50 MEQ/50 ML SYR ONE (07:43)
[2016-10-10] MEDS ORDERED: CALCIUM CHLORIDE 1 GM/10 ML INJ ONE (07:43)
[2016-10-10 07:48] LABS: PLATELET ESTIMATE DECREASED (ADEQ); TOXIC GRANULATION PRESENT
[2016-10-10] MEDS: CHLORHEXIDINE GLUCONATE 15 ML UDL PO SCH ×2 (08:26→19:31)
[2016-10-10] MEDS: FAMOTIDINE 20 MG/NACL 50 ML IV SCH ×2 (08:26→19:32)
--- NOTE | 2016-10-10 08:41 | PDINTPN ---
Hydrometer Calibrator Progress Note Assessment/Plan: Assessment/Plan: * Cholecystitis -will consult surgery today * Status post ERCP * Status post cor-etiology which is unclear. While consistent with pulmonary embolus, CT angio of the chest is negative. * Respiratory failure-diffuse pulmonary edema. Patient on 10 of peep now * Sepsis/septic shock-on low-dose Levophed * DVT-off heparin since last night currently on subcu Lovenox * Obesity * Pulmonary edema versus pneumonia. -continue antibiotics -gentle diuresis today * Micro-blood cultures currently pending. Now on meropenem * VTE prophylaxis * Stress ulcer prophylaxis Case discussed with respiratory therapy, nursing and surgery. 45 minutes of critical care time spent with the patient Subjective: Sedated on mechanical ventilation Objective: Vital Signs Temp Pulse Resp BP Pulse Ox 36.9 C 87 18 106/65 91 L 10/10/16 07:00 10/10/16 08:08 10/10/16 08:08 10/10/16 07:00 10/10/16 08:08 Laboratory Results 10/10/16 05:40 10/10/16 05:40 10/09/16 10/10/16 10/11/16 05:59 05:59 05:59 Intake Total 1150 6417.6 Output Total 1111 Balance 1150 5306.6 PT 19.4 SEC (12.0-15.0) H 10/09/16 12:13 INR 1.63 (0.83-1.16) H 10/09/16 12:13 Laboratory Results 10/10/16 05:40 10/10/16 05:40 10/10/16 10/10/16 10/10/16 05:40 05:40 05:40 Puncture Site ARTERIAL LINE Patient Temperature 37.0 DEGREES DEGREES pCO2 32 mmHg L mmHg (34 - 38) pO2 62 mmHg L mmHg (65 - 75) Total CO2 19 mEq/L L mEq/L (23 - 27) ABG pH 7.38 (7.35 - 7.45) ABG PO2/FiO2 Ratio 62 RATIO RATIO ABG HCO3 18 mEq/L L mEq/L (22 - 26) ABG O2 Saturation 90 % L % (92 - 95) ABG Base Excess -5.3 mEq/L L mEq/L (-2.5 - 2.5) ABG Lactic Acid 1.8 mmol/L H mmol/L (0.5 - 1.6) O2 Concentration % 100 % % Actual Respiration Rate 18 Set Respiration Rate 18 SIMV YES Tidal Volume 575 End Tidal CO2 26 PEEP 10 Pressure Support 10 Calcium 7.6 mg/dL L mg/dL (8.5 - 10.4) Ionized Calcium 1.11 MMOL/L L MMOL/L (1.12 - 1.30) Magnesium Total Bilirubin 4.2 mg/dL H mg/dL (0.1 - 1.4) Conjugated Bilirubin 3.5 mg/dL H mg/dL (0.0 - 0.5) Unconjugated Bilirubin 0.7 mg/dL mg/dL (0.0 - 1.1) AST 225 IU/L H IU/L (14 - 46) ALT 305 IU/L H IU/L (9 - 52) Alkaline Phosphatase 138 IU/L H IU/L (38 - 126) Troponin I 3.090 ng/mL H ng/mL (0 - 0.034) NT-Pro-B Natriuret Pep 7320 pg/mL H pg/mL (0 - 125) Total Protein 5.4 g/dL L g/dL (6.3 - 8.2) Albumin 2.8 g/dL L g/dL (3.5 - 5.0) Procalcitonin 16.41 ng/mL H ng/mL (0.02 - 0.10) 10/10/16 00:00 Puncture Site Patient Temperature pCO2 pO2 Total CO2 ABG pH ABG PO2/FiO2 Ratio ABG HCO3 ABG O2 Saturation ABG Base Excess ABG Lactic Acid O2 Concentration % Actual Respiration Rate Set Respiration Rate SIMV Tidal Volume End Tidal CO2 PEEP Pressure Support Calcium Ionized Calcium Magnesium 1.5 mg/dL L mg/dL (1.6 - 2.3) Total Bilirubin Conjugated Bilirubin Unconjugated Bilirubin AST ALT Alkaline Phosphatase Troponin I NT-Pro-B Natriuret Pep Total Protein Albumin Procalcitonin Chest [id number] by myself. Endotracheal tube in good position bilateral lower lobe infiltrates versus pulmonary edema - Time Spent With Patient Time Spent With Patient: 45 Physical Exam - Physical Exam General Appearance: other (Sedated), No alert EENT: PERRL/EOMI, ET tube (#7. Endotracheal tube) Neck: non-tender, full range of motion Respiratory: crackles (Bibasilar), No respiratory distress, No wheezing Cardiac/Chest: normal peripheral pulses, regular rate, rhythm, systolic murmur Peripheral Pulses: 2+: carotid (R), carotid (L), femoral (R), femoral (L), dorsalis-pedis (R), dorsalis-pedis (L) Abdomen: normal bowel sounds, soft Pelvic Exam: deferred Rectal: deferred Back: Normal inspection Skin: normal color, warm/dry Extremities: normal range of motion, non-tender, normal inspection, normal capillary refill Neuro/Psych: No alert ICD10 Worksheet Patient Problems: Problems Problem Status Onset Choledocholithiasis Acute
[2016-10-10] MEDS: NS 1,000 ML IV SCH (11:36)
[2016-10-10] MEDS: FUROSEMIDE 20 MG/2 ML VIAL IVP SCH ×2 (11:41→17:04)
--- NOTE | 2016-10-10 13:22 | GCON ---
[f rep st] CONSULTATION REFERRING PHYSICIAN: Sameer Lozano DO HISTORY: The patient is a 66-year-old white female who underwent evaluation in 2009 for a [address] du ct stone which was removed, and a stent was placed. Apparently she was lost to followup and returne d on the 9 of this month with a 3-day history of worsening abdominal pain, which is epigastric in nature and crampy by description. She had nausea but no vomiting. She had no right upper quadrant tenderness. The sonogram showed a minimal gallbladder wall thickening with the common bile duct to 9 mm. LABORATORY VALUES: White count was 6.3 at that time. Bands were 13%. Her AST was 849. Her ALT wa s 511. Bilirubin was 3.0 with direct component 1.9. Alkaline phosphatase was only 194. Her lipase was normal. She underwent ERCP and stent placement. Obstructing stone was not found. Her white c ount has gone from 6.3 on admission to 16, then to 22, then to 19, then to 17 with her bands going f rom 13 to 37 to 18 to 21 to 26 with neutrophils going from 77 to 53 to 47 to 68 to 69. Her lactate has gone from 3.1 to 2.3 to 2.2 to 1.8. Her procalcitonin is 16.4. She underwent a cardiopulmonary arrest twice yesterday. There was an ultrasound which showed thromb us in her lower extremity. CT angio did not show evidence of filling defect. She has bilateral lower lobe consolidation. On yesterday's CT her gallbladder was not distended nor thickened. She is currently requiring pressors. She is on meropenem and vancomycin. I was asked to see her be cause of presumed cholangitis/biliary sepsis. On examination, she does not have a Jones sign. An ultrasound will be obtained to see if there is distention of the gallbladder, pericholecystic fluid, wall thickening, or a Jones sign. If those findings are not identified, consideration will be given to continuing the antibiotic cours e. Certainly, if she has a positive Jones sign, consideration will be given to a percutaneous drai nage using Interventional Radiology if the gallbladder is distended. I do not feel at this point th at a cholecystectomy is the best course for her. Certainly that will have to occur at sometime in t he future but not necessarily at this point. /[id number]/MODL
--- NOTE | 2016-10-10 16:32 | HOSPPROG ---
Hospitalist Progress Note Assessment/Plan: * PEA arrest -ECHO with severe RH failure - but PE ruled out -? due to hypoxia * Acute respiratory failure - bilateral pulmonary infiltrates -CHF vs. PNA vs. ALI -IV lasix - monitor for improvement * Cholangitis s/p ERCP with stent -lap griffin prior to discharge * Sepsis/shock -IV Levophed -empiric abx - IV meropenem, IV vanco * ARF - follow * Troponin elevation - due to arrest * Obesity BMI 39 Subjective: On vent, weaning pressors Objective: Vital Signs Temp Pulse Resp BP Pulse Ox 37.4 C 96 18 103/61 93 10/10/16 16:00 10/10/16 16:08 10/10/16 16:08 10/10/16 16:00 10/10/16 16:08 Laboratory Results 10/10/16 05:40 10/10/16 05:40 10/09/16 10/10/16 10/11/16 05:59 05:59 05:59 Intake Total 1150 6417.6 Output Total 1111 1000 Balance 1150 5306.6 -1000 PT 19.4 SEC (12.0-15.0) H 10/09/16 12:13 INR 1.63 (0.83-1.16) H 10/09/16 12:13 - Physical Exam Constitutional: no apparent distress, appears nourished, not in pain Cardiovascular: regular rate and rhythym, no murmur, rub, or gallop Respiratory: no respiratory distress, inspiratory crackles, other (vent), No expiratory wheeze Gastrointestinal: normoactive bowel sounds, soft, non-tender abdomen, no palpable masses Skin: no rashes or abrasions, no fluctuance, no induration Neurologic: No AAOx3 Psychiatric: encephalopathic ICD10 Worksheet Patient Problems: Problems Problem Status Onset Choledocholithiasis Acute
[2016-10-10 18:15] LABS: POTASSIUM 3.8 mEq/L (3.5-5.2)
--- NOTE | 2016-10-10 19:25 | SOAPPROG ---
SOAP Progress Note Assessment/Plan: Assessment:Plan: events of yesterday and today noted. I did stop by last evening but didn't leave a note pt with code blue post ERCP looked like PE but negative angiogram She is intubated sedated and on low dose pressors 1) Biliary -- ERCP with some pus in bile duct but no sig other findings, query coming form GB and cystic duct which was not opacified with contrast at time of ERCP I see the CT and sonogram that do not reveal any cholecystitis, but I am still concerned and will order HIDA scan for tomorrow. LFTS and bili decreasing slowly, the code nahun also cause some increase in her LFT's, stent in good placement 2) Cardiac/pulm - as per cardiology/intensivists 3) ID - on abx, but still looked septic earlier, concerned about GB as above 10/10/16 19:30 Subjective: CC- code blue post ERCP, intubated, sedated, on low dose pressors and ABX Objective: Vital Signs Temp Pulse Resp BP Pulse Ox 37.3 C 99 18 110/74 96 10/10/16 19:00 10/10/16 19:00 10/10/16 19:00 10/10/16 19:00 10/10/16 19:00 Laboratory Results 10/10/16 05:40 10/10/16 17:40 10/09/16 10/10/16 10/11/16 05:59 05:59 05:59 Intake Total 1150 6417.6 1125 Output Total 1111 1350 Balance 1150 5306.6 -225 PT 19.4 SEC (12.0-15.0) H 10/09/16 12:13 INR 1.63 (0.83-1.16) H 10/09/16 12:13 sedated coarse BS anteriorly S1S2 decreased BS, difficult to assess tenderness given sedation, I do not elicit any response to deep palpation Laboratory Tests 10/08/16 10/09/16 10/10/16 14:57 05:15 05:40 WBC 17.89 H Hgb 13.6 Hct 39.7 Plt Count 133 L Total Bilirubin 3.0 H 5.2 H D AST 849 H 420 H ALT 511 H 450 H Alkaline Phosphatase 194 H 140 H 10/10/16 05:40 WBC Hgb Hct Plt Count Total Bilirubin 4.2 H AST 225 H ALT 305 H Alkaline Phosphatase 138 H ICD10 Worksheet Patient Problems: Problems Problem Status Onset Choledocholithiasis Acute
[2016-10-10] MEDS: VANCOMYCIN 1.25 GM in D5W 250 ML IV SCH (19:32)
[2016-10-10] MEDS: fentaNYL/NACL 100 ML IV SCH (21:16)
[2016-10-11 03:45] LABS: BASE EXCESS -1.2 mEq/L (-2.5-2.5); BICARBONATE 21 mEq/L (22-26); IONIZED CALCIUM 1.15 MMOL/L (1.12-1.30); MEASURED OXYGEN SATURATION 96 % (92-95); PCO2 27 mmHg (34-38); PO2 82 mmHg (65-75); TCO2 21 mEq/L (23-27)
[2016-10-11 03:46] LABS: ASSIST CONTROL YES; END TIDAL CO2 24; O2 CONCENTRATIION 60 % (0-100); P/F RATIO 137 RATIO; TOTAL RATE 18
[2016-10-11 03:47] LABS: ADD MORPH? NO; ADD SCAN? YES; ATYPICAL LYMPHOCYTE FLAG 0 (0-99); FRAGMENT RBC FLAG 0 (0-99); HEMOGLOBIN 12.2 g/dL (12.6-16.3); LIPEMIA HEMOLYSIS FLAG 90 (0-99); PLATELET CLUMPS FLAG 0 (0-99)
[2016-10-11 03:55] LABS: INR 1.14 (0.83-1.16); PROTIME(PATIENT) 14.5 SEC (12.0-15.0)
[2016-10-11 03:57] LABS: HEMATOCRIT 35.2 % (38.0-47.0); MEAN CELL HEMOGLOBIN CONCENTR. 34.7 g/dL (32.4-36.7); MEAN CELL VOLUME 89.6 fL (81.5-99.8); MEAN PLATELET VOLUME 10.3 fL (8.7-11.7); PLATELET COUNT 125 10^3/uL (150-400); RED BLOOD CELL COUNT 3.93 10^6/uL (4.18-5.33); RED CELL DISTRIBUTION WIDTH 13.2 % (11.5-15.2)
[2016-10-11 04:02] LABS: LEFT SHIFT FLG 290 (0-99)
[2016-10-11 04:25] LABS: ADD DIFF? YES; SCAN POSITIVE
[2016-10-11 04:29] LABS: ALANINE AMINOTRANSFERASE 214 IU/L (9-52); ALBUMIN 2.4 g/dL (3.5-5.0); ALKALINE PHOSPHATASE 127 IU/L (38-126); ANION GAP 9 mEq/L (8-16); ASPARTATE AMINOTRANSFERASE 106 IU/L (14-46); BILIRUBIN,TOTAL 2.2 mg/dL (0.1-1.4); CALCIUM 7.8 mg/dL (8.5-10.4); CARBON DIOXIDE 18 mEq/l (22-31); CHLORIDE 113 mEq/L (97-110); CREATININE 1.6 mg/dL (0.6-1.0); GLOMERULAR FILTRATION RATE 32; GLUCOSE 114 mg/dL (70-100); MAGNESIUM 1.9 mg/dL (1.6-2.3); POTASSIUM 3.7 mEq/L (3.5-5.2); SODIUM 140 mEq/L (134-144); TOTAL PROTEIN 4.6 g/dL (6.3-8.2)
[2016-10-11 04:34] LABS: PLATELET ESTIMATE DECREASED (ADEQ)
[2016-10-11 04:35] LABS: BILIRUBIN-CONJUGATED 1.7 mg/dL (0.0-0.5); BILIRUBIN-UNCONJUGATED 0.5 mg/dL (0.0-1.1)
[2016-10-11] MEDS ORDERED: POTASSIUM Cl (KCl) 50 ML IV ONE ×2 (04:40→19:05)
[2016-10-11] MEDS: HEPARIN 5,000 UNIT/0.5 ML SYR SC SCH ×3 (05:02→20:03)
[2016-10-11] MEDS: MEROPENEM 1 GM in NS 100 ML IV SCH ×2 (06:32→20:01)
[2016-10-11] MEDS: PROPOFOL/EMULSION 100 ML IV SCH ×3 (07:19→20:03)
[2016-10-11] MEDS: CHLORHEXIDINE GLUCONATE 15 ML UDL PO SCH ×2 (08:22→20:01)
[2016-10-11] MEDS: FAMOTIDINE 20 MG/NACL 50 ML IV SCH ×2 (08:22→20:01)
[2016-10-11] MEDS: FUROSEMIDE 20 MG/2 ML VIAL IVP SCH ×2 (08:22→13:54)
--- NOTE | 2016-10-11 08:38 | PDINTPN ---
Highway Maintenance Worker Progress Note Assessment/Plan: Assessment/Plan: * Cholecystitis -surgery following * Status post ERCP * Status post cor-etiology which is unclear. While consistent with pulmonary embolus, CT angio of the chest is negative. * Respiratory failure-diffuse pulmonary edema-improved after diuresis -will wean FiO2 and peep * Sepsis/septic shock-on low-dose Levophed. Improved * DVT-off heparin since last night currently on subcu Lovenox * Obesity * Pulmonary edema-improved after diuresis -continue Lasix * Micro-blood cultures currently pending. Now on meropenem * VTE prophylaxis * Stress ulcer prophylaxis Overall improved Case discussed with respiratory therapy, nursing 40 minutes of critical care time spent with the patient Subjective: Sedated on mechanical ventilation Objective: Vital Signs Temp Pulse Resp BP Pulse Ox 36.7 C 58 L 16 86/55 L 95 10/11/16 08:25 10/11/16 08:25 10/11/16 08:25 10/11/16 08:25 10/11/16 08:25 Microbiology 10/10/16 16:15 - Final Sputum, Induced/Suctioned Laboratory Results 10/11/16 03:30 10/11/16 03:30 10/10/16 10/11/16 10/12/16 05:59 05:59 05:59 Intake Total 6417.6 2002 Output Total 1111 2790 150 Balance 5306.6 -788 -150 PT 14.5 SEC (12.0-15.0) 10/11/16 03:30 INR 1.14 (0.83-1.16) 10/11/16 03:30 Laboratory Results 10/11/16 03:30 10/11/16 03:30 10/11/16 10/11/16 03:30 03:30 Calcium 7.8 mg/dL L mg/dL (8.5 - 10.4) Ionized Calcium 1.15 MMOL/L MMOL/L (1.12 - 1.30) Magnesium 1.9 mg/dL mg/dL (1.6 - 2.3) Total Bilirubin 2.2 mg/dL H mg/dL (0.1 - 1.4) Conjugated Bilirubin 1.7 mg/dL H mg/dL (0.0 - 0.5) Unconjugated Bilirubin 0.5 mg/dL mg/dL (0.0 - 1.1) AST 106 IU/L H IU/L (14 - 46) ALT 214 IU/L H IU/L (9 - 52) Alkaline Phosphatase 127 IU/L H IU/L (38 - 126) Total Protein 4.6 g/dL L g/dL (6.3 - 8.2) Albumin 2.4 g/dL L g/dL (3.5 - 5.0) Lipase 110.0 IU/L IU/L (23 - 300) Chest [id number] by myself. Endotracheal tube in good position. Pulmonary edema improved - Time Spent With Patient Time Spent With Patient: 40 Physical Exam - Physical Exam General Appearance: other (Sedated) EENT: PERRL/EOMI, ET tube Neck: non-tender, full range of motion Respiratory: rales (Bibasilar), No respiratory distress, No wheezing Cardiac/Chest: normal peripheral pulses, regular rate, rhythm, systolic murmur Peripheral Pulses: 2+: carotid (R), carotid (L), femoral (R), femoral (L), dorsalis-pedis (R), dorsalis-pedis (L) Abdomen: normal bowel sounds, non-tender, soft Pelvic Exam: deferred Rectal: deferred Skin: normal color, warm/dry Extremities: normal range of motion, non-tender, normal inspection, normal capillary refill ICD10 Worksheet Patient Problems: Problems Problem Status Onset Choledocholithiasis Acute
--- NOTE | 2016-10-11 09:39 | SOAPPROG ---
SOAP Progress Note Assessment/Plan: 10/11/16 09:35 Assessment: Improving. Would continue to suggest that surgical intervention be delayed until sepsis resolves and medical issues optimized. Percutaneous drainage ( IR placed cholecystostomy tube remains a temporizing maneuver if needed) Subjective: intubated but responsive. Indicates no abdominal pain Objective: Vital Signs Temp Pulse Resp BP Pulse Ox 36.4 C 63 16 97/59 L 93 10/11/16 09:00 10/11/16 09:00 10/11/16 09:00 10/11/16 09:00 10/11/16 09:00 Microbiology 10/10/16 16:15 - Final Sputum, Induced/Suctioned Laboratory Results 10/11/16 03:30 10/11/16 03:30 10/10/16 10/11/16 10/12/16 05:59 05:59 05:59 Intake Total 6417.6 2002 Output Total 1111 2790 150 Balance 5306.6 -788 -150 PT 14.5 SEC (12.0-15.0) 10/11/16 03:30 INR 1.14 (0.83-1.16) 10/11/16 03:30 - Time Spent With Patient Time Spent With Patient: 15 - Pending Discharge Pending Discharge Within 24 Hours: No Pending Discharge Within 48 Hours: No Physical Exam - Physical Exam General Appearance: alert EENT: ET tube Abdomen: non-tender, soft ICD10 Worksheet Patient Problems: Problems Problem Status Onset Choledocholithiasis Acute
--- NOTE | 2016-10-11 13:26 | CPEKG ---
Heart Rate: 63 RR Interval: 952 P-R Interval: 128 QRSD Interval: 86 QT Interval: 448 QTC Interval: 459 P Kyle: 0 QRS Kyle: 54 T Wave Kyle: -24 EKG Severity - ABNORMAL ECG - EKG Impression: SINUS RHYTHM EKG Impression: CONSIDER ANTERIOR INFARCT EKG Impression: NONSPECIFIC T ABNORMALITIES, DIFFUSE LEADS EKG Impression: Slight ST elevation in lead 3 persists. EKG Impression: No significant change from October 09, 2016 Electronically Signed By: Joe Ford 11-Oct-2016 17:06:31
--- NOTE | 2016-10-11 14:28 | ECHO ---
[id number] + + [address] : : [place] [address] : : [phone] + + Adult Echocardiographic Report + + :Name: TYSHAWN DUONG KStudy Date: 10/11/2016 11:53 AM : : Hospital Admission Number: [id number] Loc ation: 252: :: 1950 Gender: Female Height: 64 in : :Age: 66 yrs Race: WH Weight: 229 lb : :Reason For Study: Pulmonary edema/s/p cardiac arrest : : BSA: 2.1 me ters2 : + + MMode/2D Measurements \T\ Calculations IVSd: 1.2 cm LVIDd: 4.4 cm FS: 31.1 % Ao root diam: 3.6 cm LVPWd: 0.80 cm LVIDs: 3.0 cm EDV(Teich): 85.7 ml LA dimension: 3.0 cm ESV(Teich): 35.1 ml EF(Teich): 59.1 % Normal Measurement Values: + + :LVIDd (3.5-5.7cm) IVSd (0.6-1.1cm) LVPWd (0.6-1.1cm) Aortic Root (2.0-3.7cm)Left Atrium (1.5-4.0cm): :LV Vol(d) (76-115ml) LV Vol(s) (29-48ml) Ejec Fraction (50-65%)PV Gerard (0.6- 1.2m/s) TV Gerard (0.4-1.0m/s) : :MV E Gerard (0.8-1.0m/s)MV A Gerard (0.3-1.0m/s)LVOT Gerard (0.7-1.2m/s) Asc Ao Gerard ( 0.9-1.8m/s) : + + Doppler Measurements \T\ Calculations MV E max geradr: 56.3 cm/sec Ao V2 max: 93.7 cm/sec TR max gerard: 205.0 cm/sec MV A max gerard: 82.4 cm/sec Ao max P.5 mmHg TR max P.8 mmHg MV E/A: 0.68 RAP systole: 5.0 mmHg RVSP(TR): 21.8 mmHg Left Ventricle The left ventricle is normal in size. There is normal left ventricular wall thickness. EF estimate is 50-55. Left ventricular systolic function is low normal. No regional wall motion abnormalities noted. Right Ventricle The right ventricle is mild to moderately dilated. The right ventricular systolic function is mildly reduced. Atria The left atrial size is normal. Right atrial size is normal. Mitral Valve The mitral valve is normal in structure and function. There is no evidence of mitral valve prolapse. There is no mitral valve stenosis. There is trace to mild mitral regurgitation. Tricuspid Valve Normal tricuspid valve. There is trace tricuspid regurgitation. Right ventricular systolic pressure is normal. Aortic Valve The aortic valve is trileaflet. The aortic valve opens well. There is no aortic stenosis. There is no aortic insufficiency. Pulmonic Valve The pulmonic valve is normal in structure and function. Trace pulmonic valvular regurgitation. Great Vessels The aortic root is normal size. Pericardium/Pleural There is no pericardial effusion. There is a fat pad seen. Left pleural effusion. Conclusion A complete two-dimensional transthoracic echocardiogram was performed (2D, M-mode, Doppler and color flow Doppler). Left ventricular systolic function is low normal. EF estimate is 50-55 No obvious regional wall motion abnormalities RV is mildly to moderately dilated with mildly reduced systolic function There is trace to mild mitral regurgitation. There is trace tricuspid regurgitation. Right ventricular systolic pressure is normal. Trace pulmonic valvular regurgitation. There is a fat pad seen. Left pleural effusion. Compared with 10/09/2016, RV size and systolic function have improved Final Reading Physician: Dr Nelia Layne electronically signed on 10/11/2016 02:27 PM Ordering Physician: Nelia Layne Performed By: Sandee Mallory, [facility]
--- NOTE | 2016-10-11 15:34 | GCON ---
[f rep st] CONSULTATION CARDIOLOGY CONSULT DATE OF CONSULTATION: 10/11/2016 CHIEF COMPLAINT: Status post arrest. HISTORY OF PRESENT ILLNESS: We were asked by Dr. Mccann and Dr. Lozano to visit with this patient. The history is from chart review and discussion with her other physicians and her sister as the moiz ent is currently intubated and sedated. 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 She also h as obesity. She has not had regular medical care for several years. She has no known cardiovascula r disease. She was admitted on October 08 with abdominal pain and found to have cholelithiasis with minimal thicken ing of the gallbladder wall. She also had intrahepatic biliary ductal dilation. She was therefore admitted and had a GI consult. On October 09, she underwent ERCP. This demonstrated no gallstone, but she did have pus and debris in the common bile duct. At the very end of the case, the patient had a sudden decrease in end-tidal C O2, and became profoundly hypotensive and hypoxic. It is not clear whether she actually lost a puls e but apparently, one note says that she did have electrical activity on the monitor and another not e reports asystole. In talking to the anesthesiologist, she did not have VT or VF. Per ACLS protocol, she received CPR epinephrine and bicarb. She was intubated and taken to the ICU. She did have return of spontaneous circulation. A bedside echocardiogram immediately post arrest revealed normal LV systolic function with abnormal septal motion consistent with RV pressure and vol ume overload. Her RV was moderate to severely dilated with severely reduced systolic function. Bas ed on her echo findings and the sudden nature of her hypoxic hypotensive arrest, it was felt that pu lmonary embolism was the most likely etiology for her clinical deterioration. She was started on IV heparin. However, a lower extremity venous ultrasound showed only a tiny thrombus in her left posterior tibia l vein. Chest CT later that same day showed no definite pulmonary thromboemboli, small bilateral pl eural effusions and diffuse bilateral alveolar opacities, either representing pneumonia or pulmonary edema. Her peak troponin was 3.8. Her course has been complicated by persistent hypoxia and acute renal failure. Her creatinine has stabilized at 1.6. She is making a significant amount of urine now in response to diuresis. In talking to her sister at the bedside, as mentioned the patient has not had regular medical care. The patient's sister reports that she has noted significant bilateral lower extremity edema over th e past several months and has urged her sister to get this evaluated. Again, no known history of ca rdiovascular disease. ALLERGIES: Penicillin. PAST MEDICAL HISTORY: 1. History of gallstones and common bile duct stricture with past ERCP as detailed above. 2. Obesity. 3. History of right adrenal mass, though stable on recent imaging. 4. Osteoarthritis. OUTPATIENT MEDICATIONS: None known. SOCIAL HISTORY: The patient is single and lives alone. Her sister is at the bedside. She does not smoke cigarettes and denies alcohol use. FAMILY HISTORY: Not applicable to the current case. PHYSICAL EXAM: VITAL SIGNS: Current blood pressure 97/59. She is requiring low-dose Levophed. He art rate has been mostly in the 60s but she has occasional episodes of higher heart rates just above 100. This was seen on telemetry. She has not had significant arrhythmia. Respiratory rate is 16. Oxygen saturation 92% on 60% FiO2 on the ventilator. She is afebrile. GENERAL: Intubated and se dated. She does respond to light tactile stimuli and is moving all 4 extremities. HEART: CVP toda y has ranged from 13-17. Regular rate and rhythm without murmur, rub, or gallop. LUNGS: Occasiona l rhonchi anteriorly and laterally. ABDOMEN: Decreased breath sounds. Obese. Not overtly tender. No obvious masses. EXTREMITIES: Warm and well perfused. Trace bilateral ankle edema. She does have bilateral hand edema. LABORATORY DATA: White count 14.4, hematocrit 35.2, platelets 125. INR was 1.6 the day of her arre st but is now 1.14. Her sodium 140, potassium 3.7, chloride 113, bicarb 18, BUN 26, creatinine 1.6 AST 106, ALT 214, alkaline phosphatase 127 and total bilirubin is 2.2. These numbers are actually improving to stable. Peak troponin 3.84, most recent was yesterday 3.09. BNP elevated at 7320. Serial EKGs reviewed by me show sinus rhythm with small inferior Q-waves. Her immediate post arrest EKG did show subtle lateral ST depression. Serial chest x-rays reviewed by me. On admission, some atelectasis without significant cardiopulmon whitley process. Immediate post arrest with profound bilateral alveolar opacities. This has improved s lightly based on her chest x-ray today. CT pulmonary angiogram and lower extremity ultrasound as detailed above. Echocardiogram: Repeat echocardiogram today at the bedside reviewed by me: Normal LV systolic func tion without regional wall motion abnormalities. RV is still mild to moderately dilated with mildly reduced systolic function, but overall her RV parameters are improved compared with October 09, immedi ately post arrest. No significant valvular disease. Normal estimated pulmonary pressures. No bennett cardial effusion. ASSESSMENT AND PLAN: A 66-year-old female with known gallbladder disease. She was admitted. She u nderwent ERCP on October 09, complicated by hypoxic and hypotensive arrest. Her course has been compli cated by a slight troponin elevation, acute renal failure, and persistent hypoxia that appears large ly to be pulmonary edema. 1. Status post arrest: Initially this appeared to be a pulmonary embolism. However, there is no e vidence of pulmonary embolism on her CT pulmonary angiogram. While it is possible that she had auto lysis of a pulmonary embolism, this seems unlikely. Her initial right ventricular dysfunction may h ave been exacerbation of baseline right ventricular dilation and right ventricular dysfunction. Thi s does not appear to be an acute coronary syndrome as the etiology of her arrest given her EKG witho ut profound ischemic changes and only minimally elevated troponin. Her troponin elevation could be related to CPR and hypotension. She may have become hypoxic for some other etiology, although she w as intubated so it seems unlikely that mucus plugging would have contributed. Continue supportive c are, wean pressors as tolerated. Agree with diuresis as she was markedly positive (5 L) on October 10. At this point, she seems to be responding well to diuresis. Could consider right and left heart c atheterization if she does not continue to improve clinically. 2. Right ventricular dysfunction: This may be pre-existing given her obesity. Her estimated pulmo nary pressures on echo are not high, however it is possible that she has underlying obesity hypovent ilation and untreated sleep apnea that could be contributing to right ventricular dysfunction. This makes her somewhat preload-dependent. Certainly, after she recovers from her acute illness, she sh ould have extensive outpatient evaluation including a sleep study. Continue prophylactic dose hepar in for now. 3. Hypotension: This may be related to sepsis from her gallbladder. She is on appropriate antibio tic therapy. She will be having a HIDA scan and possible tube placed in her gallbladder today. 4. Gallbladder disease. See #3. 5. Obesity: This is complicating her overall picture. She will require intensive outpatient manag ement once she recovers. Thank you for allowing us to participate in this patient's care. Will follow. /[id number]/MODL
--- NOTE | 2016-10-11 16:02 | HOSPPROG ---
Hospitalist Progress Note Assessment/Plan: * PEA arrest -ECHO with severe RH failure - but PE ruled out -? due to hypoxia -repeat ECHO much better * Acute respiratory failure due to pulmonary edema -improving with IV lasix * Acute on chronic CHF due to diastolic dysfunction -IVF sepsis bolus tipped into CHF * Cholangitis s/p ERCP with stent -purulence noted on ERCP with non-visualization of GB -d/w Dr. Leslie - check HIDA -if persistent non-visualization, then consider cholecystostomy tube -eventual lap griffin * Septic shock -IV Levophed -empiric abx - IV meropenem * ARF - follow * Troponin elevation - due to arrest -consider ischemic eval prior to discharge * Obesity BMI 39 * Below the knee DVT - tiny -serial US Subjective: on vent Objective: Vital Signs Temp Pulse Resp BP Pulse Ox 37.0 C 66 16 110/65 97 10/11/16 14:00 10/11/16 14:00 10/11/16 14:00 10/11/16 14:00 10/11/16 14:00 Microbiology 10/10/16 16:15 - Final Sputum, Induced/Suctioned Laboratory Results 10/11/16 03:30 10/11/16 03:30 10/10/16 10/11/16 10/12/16 05:59 05:59 05:59 Intake Total 6417.6 2002 Output Total 1111 2790 1000 Balance 5306.6 -788 -1000 PT 14.5 SEC (12.0-15.0) 10/11/16 03:30 INR 1.14 (0.83-1.16) 10/11/16 03:30 d/w Dr. Layne and Dr. Lozano EKG viewed, my personal interpretation is - non-ischemic CXR - improving CHF ECHO - normal LV function, normal valves, right heart failure dramatically improved - Physical Exam Constitutional: no apparent distress, appears nourished, not in pain Cardiovascular: regular rate and rhythym, no murmur, rub, or gallop Respiratory: no respiratory distress, no rales or rhonchi, clear to auscultation Gastrointestinal: normoactive bowel sounds, soft, non-tender abdomen, no palpable masses Skin: no rashes or abrasions, no fluctuance, no induration Neurologic: No AAOx3 Psychiatric: encephalopathic, other (intuabed and sedated), No interacting appropriately, No thought process linear, No agitated ICD10 Worksheet Patient Problems: Problems Problem Status Onset Choledocholithiasis Acute
[2016-10-11 18:39] LABS: POTASSIUM 3.7 mEq/L (3.5-5.2)
--- NOTE | 2016-10-11 20:30 | SOAPPROG ---
VENKATESH Progress Note Assessment/Plan: Assessment:Plan: events of yesterday and today noted. I did stop by last evening but didn't leave a note pt with code blue post ERCP looked like PE but negative angiogram She is intubated sedated and on low dose pressors 1) Biliary -- ERCP with some pus in bile duct but no sig other findings, query coming form GB and cystic duct which was not opacified with contrast at time of ERCP I see the CT and sonogram that do not reveal any cholecystitis, but I am still concerned and will order HIDA scan for tomorrow. LFTS and bili decreasing slowly, the code nahun also cause some increase in her LFT's, stent in good placement 2) Cardiac/pulm - as per cardiology/intensivists 3) ID - on abx, but still looked septic earlier, concerned about GB as above 10/10/16 19:30 10/11/16 20:29 today's events noted, appreciate input from cardiology, intensivists, surgery and hospitalists pt still intubate luzma sedated HIDA scan is nml 1) Biliary - LFT's decreasing with stent in place, HIDA says no cholecystitis. Continue ABX, when stable remove GB 2) ID - abx seem to be effective, WBC decreasing daily 3) Cardiology - appreciate consult, will need further eval as stabilizes 4) Pulmonary - Intubated, diuresing well, query fluid vs infiltrate 10/11/16 20:36 Subjective: cc- code blue s/p ERCp, cholangitis s/p ERCp and stent placement pt intubated and sedated Objective: Vital Signs Temp Pulse Resp BP Pulse Ox 38.0 C 84 14 106/58 L 92 10/11/16 20:00 10/11/16 20:00 10/11/16 20:00 10/11/16 20:00 10/11/16 20:00 Microbiology 10/10/16 16:15 - Final Sputum, Induced/Suctioned Laboratory Results 10/11/16 03:30 10/11/16 17:22 10/10/16 10/11/16 10/12/16 05:59 05:59 05:59 Intake Total 6417.6 2002 558.7 Output Total 1111 2790 1525 Balance 5306.6 -788 -966.3 PT 14.5 SEC (12.0-15.0) 10/11/16 03:30 INR 1.14 (0.83-1.16) 10/11/16 03:30 sedated and intubated coarse breath sound and rhonchi anteriorly s1s2, rrr +BS, decreased cannot elicit tenderness but she is sedated Laboratory Tests 10/10/16 10/10/16 10/11/16 05:40 05:40 03:30 WBC 17.89 H 14.45 H Total Bilirubin 4.2 H AST 225 H ALT 305 H Alkaline Phosphatase 138 H 10/11/16 03:30 WBC Total Bilirubin 2.2 H AST 106 H ALT 214 H Alkaline Phosphatase 127 H ICD10 Worksheet Patient Problems: Problems Problem Status Onset Choledocholithiasis Acute
[2016-10-12] MEDS: HEPARIN 5,000 UNIT/0.5 ML SYR SC SCH ×3 (05:17→20:27)
[2016-10-12 06:00] LABS: % IMMATURE GRANULYOCYTES 1.8 % (0.0-1.1); ABSOLUTE IMMATURE GRANULOCYTES 0.16 10^3/uL (0.00-0.10); ADD DIFF? NO; ADD MORPH? NO; ADD SCAN? YES; ATYPICAL LYMPHOCYTE FLAG 0 (0-99); FRAGMENT RBC FLAG 0 (0-99); HEMATOCRIT 33.2 % (38.0-47.0); HEMOGLOBIN 11.4 g/dL (12.6-16.3); LIPEMIA HEMOLYSIS FLAG 90 (0-99); MEAN CELL HEMOGLOBIN 31.1 pg (27.9-34.1); MEAN CELL HEMOGLOBIN CONCENTR. 34.3 g/dL (32.4-36.7); MEAN CELL VOLUME 90.5 fL (81.5-99.8); MEAN PLATELET VOLUME 10.9 fL (8.7-11.7); PLATELET CLUMPS FLAG 0 (0-99); PLATELET COUNT 111 10^3/uL (150-400); RED BLOOD CELL COUNT 3.67 10^6/uL (4.18-5.33); RED CELL DISTRIBUTION WIDTH 13.4 % (11.5-15.2)
[2016-10-12] MEDS: MEROPENEM 1 GM in NS 100 ML IV SCH ×2 (06:09→19:26)
[2016-10-12 06:12] LABS: ALANINE AMINOTRANSFERASE 153 IU/L (9-52); ALBUMIN 2.5 g/dL (3.5-5.0); ALKALINE PHOSPHATASE 126 IU/L (38-126); ANION GAP 9 mEq/L (8-16); ASPARTATE AMINOTRANSFERASE 57 IU/L (14-46); BILIRUBIN,TOTAL 1.9 mg/dL (0.1-1.4); CALCIUM 8.4 mg/dL (8.5-10.4); CARBON DIOXIDE 20 mEq/l (22-31); CHLORIDE 112 mEq/L (97-110); CREATININE 1.5 mg/dL (0.6-1.0); GLOMERULAR FILTRATION RATE 35; GLUCOSE 92 mg/dL (70-100); MAGNESIUM 1.9 mg/dL (1.6-2.3); POTASSIUM 3.7 mEq/L (3.5-5.2); SODIUM 141 mEq/L (134-144); TOTAL PROTEIN 4.9 g/dL (6.3-8.2)
[2016-10-12 06:25] LABS: LEFT SHIFT FLG 180 (0-99)
[2016-10-12 06:33] LABS: BASE EXCESS -1.3 mEq/L (-2.5-2.5); BICARBONATE 23 mEq/L (22-26); IONIZED CALCIUM 1.19 MMOL/L (1.12-1.30); MEASURED OXYGEN SATURATION 91 % (92-95); PCO2 38 mmHg (34-38); PO2 66 mmHg (65-75); TCO2 24 mEq/L (23-27)
[2016-10-12 06:36] LABS: CPAP YES; O2 CONCENTRATIION 40 % (0-100); P/F RATIO 165 RATIO; PATIENT RATE 22; PRESSURE SUPPORT 10
[2016-10-12] MEDS ORDERED: POTASSIUM Cl (KCl) 50 ML IV ONE (06:45)
[2016-10-12 07:29] LABS: SCAN NEGATIVE
--- NOTE | 2016-10-12 07:51 | SOAPPROG ---
SOAP Progress Note Assessment/Plan: Assessment: 66 year old s/p cardiac arrest after ERCP. HIDA without cholecystitis Elective cholecystectomy after recovers S: On CPAP Trial. Does not wince to palpation O: Abdomen is soft and non tender Plan: 10/12/16 07:50 10/12/16 22:21 Objective: Vital Signs Temp Pulse Resp BP Pulse Ox 37.2 C 84 27 H 152/84 H 92 10/12/16 05:00 10/12/16 06:45 10/12/16 06:45 10/12/16 06:45 10/12/16 06:45 Microbiology 10/10/16 16:15 - Final Sputum, Induced/Suctioned Laboratory Results 10/12/16 05:40 10/12/16 05:30 10/11/16 10/12/16 10/13/16 05:59 05:59 05:59 Intake Total 2001 1017.7 Output Total 6260 2555 Balance -788 -1537.3 PT 14.5 SEC (12.0-15.0) 10/11/16 03:30 INR 1.14 (0.83-1.16) 10/11/16 03:30 ICD10 Worksheet Patient Problems: Problems Problem Status Onset Choledocholithiasis Acute
[2016-10-12] MEDS: FUROSEMIDE 20 MG/2 ML VIAL IVP SCH ×2 (08:35→15:23)
[2016-10-12] MEDS: CHLORHEXIDINE GLUCONATE 15 ML UDL PO SCH (08:35)
[2016-10-12] MEDS: FAMOTIDINE 20 MG/NACL 50 ML IV SCH (08:36)
--- NOTE | 2016-10-12 09:04 | PDINTPN ---
[employer] Supervisor Progress Note Assessment/Plan: Assessment/Plan: * Cholecystitis -surgery following * Status post ERCP * Status post cor-etiology which is unclear. While consistent with pulmonary embolus, CT angio of the chest is negative. -cardiology is evaluating. May need heart catheterization * Respiratory failure-diffuse pulmonary edema-clinically markedly improved. FiO2 is at 40%. -will assess for extubation today * Sepsis/septic shock-off pressors since last night * Mental status-awake and alert * DVT-off heparin since last night currently on subcu Lovenox * Obesity * Pulmonary edema-improved after diuresis -increase Lasix * Micro-blood cultures currently pending. Now on meropenem * VTE prophylaxis * Stress ulcer prophylaxis Overall improved Case discussed with respiratory therapy, nursing 35 minutes of critical care time spent with the patient 10/12/16 09:03 Subjective: Awake and alert. Following commands. Objective: Vital Signs Temp Pulse Resp BP Pulse Ox 37.5 C 74 22 H 141/80 H 92 10/12/16 08:34 10/12/16 08:34 10/12/16 08:34 10/12/16 08:34 10/12/16 08:34 Microbiology 10/10/16 16:15 - Final Sputum, Induced/Suctioned Laboratory Results 10/12/16 05:40 10/12/16 05:30 10/11/16 10/12/16 10/13/16 05:59 05:59 05:59 Intake Total 2001 1017.7 Output Total 2790 2555 75 Balance -788 -1537.3 -75 PT 14.5 SEC (12.0-15.0) 10/11/16 03:30 INR 1.14 (0.83-1.16) 10/11/16 03:30 Laboratory Results 10/12/16 05:40 10/12/16 05:30 10/12/16 10/12/16 06:25 05:30 Patient Temperature 36.8 DEGREES DEGREES pCO2 38 mmHg mmHg (34 - 38) pO2 66 mmHg mmHg (65 - 75) Total CO2 24 mEq/L mEq/L (23 - 27) ABG pH 7.40 (7.35 - 7.45) ABG PO2/FiO2 Ratio 165 RATIO RATIO ABG HCO3 23 mEq/L mEq/L (22 - 26) ABG O2 Saturation 91 % L % (92 - 95) ABG Base Excess -1.3 mEq/L mEq/L (-2.5 - 2.5) O2 Concentration % 40 % % Actual Respiration Rate 22 PEEP 5 Pressure Support 10 CPAP YES Calcium 8.4 mg/dL L mg/dL (8.5 - 10.4) Magnesium 1.9 mg/dL mg/dL (1.6 - 2.3) Total Bilirubin 1.9 mg/dL H mg/dL (0.1 - 1.4) AST 57 IU/L H IU/L (14 - 46) ALT 153 IU/L H IU/L (9 - 52) Alkaline Phosphatase 126 IU/L IU/L (38 - 126) NT-Pro-B Natriuret Pep 1480 pg/mL H pg/mL (0 - 125) Total Protein 4.9 g/dL L g/dL (6.3 - 8.2) Albumin 2.5 g/dL L g/dL (3.5 - 5.0) Chest [id number] by myself. Endotracheal tube is in good position. Minimal improvement in pulmonary edema. Query right-sided effusion - Time Spent With Patient Time Spent With Patient: 35 Physical Exam - Physical Exam General Appearance: alert, no apparent distress EENT: PERRL/EOMI, normal ENT inspection, ET tube Neck: non-tender, full range of motion, supple, normal inspection Respiratory: rales (Few), No respiratory distress, No stridor, No wheezing Cardiac/Chest: normal peripheral pulses, regular rate, rhythm, systolic murmur Abdomen: normal bowel sounds, non-tender, soft Pelvic Exam: deferred Rectal: deferred Skin: normal color, warm/dry Extremities: normal range of motion, non-tender, normal inspection, normal capillary refill Neuro/Psych: alert ICD10 Worksheet Patient Problems: Problems Problem Status Onset Choledocholithiasis Acute
[2016-10-12 09:17] LABS: BASE EXCESS -0.6 mEq/L (-2.5-2.5); BICARBONATE 23 mEq/L (22-26); MEASURED OXYGEN SATURATION 96 % (92-95); PCO2 35 mmHg (34-38); PO2 86 mmHg (65-75); TCO2 24 mEq/L (23-27)
[2016-10-12 09:18] LABS: CPAP YES; END TIDAL CO2 39; O2 CONCENTRATIION 40 % (0-100); P/F RATIO 215 RATIO; PATIENT RATE 26
[2016-10-12 09:19] LABS: PRESSURE SUPPORT 7
--- NOTE | 2016-10-12 11:38 | SOAPPROG ---
VENKATESH Progress Note Assessment/Plan: Assessment:Plan: 10/11/16 20:29 today's events noted, appreciate input from cardiology, intensivists, surgery and hospitalists pt still intubate luzma sedated HIDA scan is nml 1) Biliary - LFT's decreasing with stent in place, CHELA says no cholecystitis. Continue ABX, when stable remove GB 2) ID - abx seem to be effective, WBC decreasing daily 3) Cardiology - appreciate consult, will need further eval as stabilizes 4) Pulmonary - Intubated, diuresing well, query fluid vs infiltrate 10/11/16 20:36 10/12/16 11:38 as above 1) biliary - s/p ERCp with stent, LFT's decreasing, HIDA nml, will need GB at in near future 2) ID - abx seem to be effective, no change 3) pulm - extubated today!! as per intensivists 4) Cardiology - prob will be getting cath 5) neuro - intact, she is alert and conversing and joking appropriately will follow 10/12/16 12:00 Subjective: cc - code blue s/p ercp pt is extubated, awake and alert, denies abdo pain Objective: Vital Signs Temp Pulse Resp BP Pulse Ox 37.1 C 81 24 H 144/102 H 96 10/12/16 11:00 10/12/16 11:00 10/12/16 11:00 10/12/16 11:00 10/12/16 11:00 Microbiology 10/10/16 16:15 - Final Sputum, Induced/Suctioned Laboratory Results 10/12/16 05:40 10/11/16 10/12/16 10/13/16 05:59 05:59 05:59 Intake Total 2001 1017.7 Output Total 279 2555 75 Balance -788 -1537.3 -75 PT 14.5 SEC (12.0-15.0) 10/11/16 03:30 INR 1.14 (0.83-1.16) 10/11/16 03:30 alert and awake coarse bs s1s2, rrr +BS, soft minimal discomfort on deep palpation ICD10 Worksheet Patient Problems: Problems Problem Status Onset Choledocholithiasis Acute
[2016-10-12 11:39] LABS: BASE EXCESS 0.4 mEq/L (-2.5-2.5); BICARBONATE 25 mEq/L (22-26); MEASURED OXYGEN SATURATION 93 % (92-95); PCO2 41 mmHg (34-38); PO2 75 mmHg (65-75); TCO2 26 mEq/L (23-27)
--- NOTE | 2016-10-12 13:52 | PDCARPN ---
Cardiology Progress Note Assessment/Plan: Assessment/plan: 66-year-old female with no known cardiovascular disease. She does have obesity. She was admitted on October 08 with abdominal pain and abnormal LFTs. She does have a history of gallstones and prior ERCP. On October 09 she had ERCP with bile duct stenting. At the end of the case she had a hypoxic hypotensive arrest. According to , she had asystole. Other reports say PEA. There was no report of VF or VT. She was resuscitated with epinephrine, CPR, bicarb. She was intubated in the ICU and maintained on pressors. Pressors were off October 11. She was extubated October 12. Peak troponin was about 3.8. Her echocardiogram shows normal LV systolic function without ischemic wall motion abnormalities. Post code echo demonstrates significant RV dilation and RV dysfunction. Her right ventricular parameters improved on her most recent echocardiogram. EKG is nonischemic. 1. Status post arrest: Unclear etiology. No PE on CT pulmonary angiogram. This could have been hemodynamic mediated issue in the patient is relatively pre load in the setting of RV dysfunction. We have not completely ruled out obstructive coronary disease/ACS but this does not seem highly likely. However , given her need for elective cholecystectomy, will need coronary angiogram when she is more medically stable. No need for urgent coronary angiogram at this point as she is now off pressors, nor having chest pain. 2. Gallbladder disease: Will need elective cholecystectomy 3. Hypoxic respiratory failure: Improving. Seem largely related to significant volume resuscitation post arrest. 4. Hypotension requiring pressors: This has resolved. She is now somewhat hypertensive. We will have to follow this. 5. Acute renal failure: This is in the setting of code. Improving slightly. 6. Obesity: Ongoing outpatient management. 10/12/16 14:01 Subjective: Extubated this morning. She reports no chest discomfort or dyspnea. She confirms that she does not carry diagnosis of coronary disease and does not carry diagnosis of hypertension or diabetes. Reviewed/Discussed With: family, other (Drs. Lozano and Anuj) Objective: Vital Signs (8 Hrs) Temp Pulse Resp BP Pulse Ox 10/12/16 12:00 37.5 C 80 20 146/76 H 95 10/12/16 11:00 37.1 C 81 24 H 144/102 H 96 10/12/16 09:55 37.2 C 83 24 H 156/83 H 97 10/12/16 09:33 99 10/12/16 09:30 37 C 80 30 H 160/90 H 96 10/12/16 09:00 37.2 C 74 17 141/85 H 100 10/12/16 08:34 37.5 C 74 22 H 141/80 H 92 10/12/16 07:00 37.2 C 64 16 136/80 H 97 10/12/16 06:45 84 27 H 152/84 H 92 10/12/16 06:30 68 94 10/12/16 06:00 78 21 H 141/77 H 96 Intake/Output (24 Hrs) 10/11/16 10/12/16 10/13/16 05:59 05:59 05:59 Intake Total 2001 1017.7 Output Total 2790 2555 1345 Balance -788 -1537.3 -1345 Intake: Oral (ml) 0 IV Intake (ml) 488 619 IV Infused (ml) 1514 398.7 Norepinephrine Bitartrate 310 4 mg In D5w 500 ml @ Per Protocol IV CONT KATHERYN Rx# :[id number] Norepinephrine Bitartrate 200 72.3 4 mg In Ns 500 ml @ Per Protocol IV CONT KATHERYN Rx#: [id number] Ns 1,000 ml @ 100 mls/hr 658 IV CONT KATHERYN Rx#: [id number] Propofol/Emulsion 100 ml 256 270 @ Per Protocol IV CONT KATHERYN Rx#:[id number] fentaNYL/NACL 100 ml @ 90 56.4 Per Protocol IV CONT KATHERYN Rx#:[id number] Output: Urine (ml) 2615 2505 1345 Catheter 2615 2505 1345 OG Tube Output (ml) 175 50 Large Bore (>12 Setswana) 175 50 Non-weighted Stomach [place] Sum Other: Weight 103.9 kg 101.1 kg Number of Stools Catheter 0 Appears fatigued. Somewhat hoarse. Sitting up in a chair. JVP 14 cm of water. Regular rate and rhythm without murmur or gallop Diffuse expiratory wheezes. Occasional rhonchi. Extremities are warm without edema. Chest x-ray reviewed: Persistent bilateral pulmonary infiltrates. Result Diagrams: 10/12/16 05:40 10/12/16 05:30 Cardiac Labs: Cardiac Lab Results (72 Hrs) 10/10/16 10/09/1617 05:40 23:59 18:40 Troponin I 3.090 H 3.840 H 3.690 H EKG: Dated 10/11: Junctional rhythm. Inferior TWI Telemetry: NSR ICD10 Worksheet Patient Problems: Problems Problem Status Onset Choledocholithiasis Acute
[2016-10-12] MEDS: ALBUTEROL 3 ML DEYVIAL IH PRN ×2 (16:17→20:44)
--- NOTE | 2016-10-12 16:36 | CPEKG ---
Heart Rate: 93 RR Interval: 645 P-R Interval: 136 QRSD Interval: 98 QT Interval: 384 QTC Interval: 478 P Dix: 65 QRS Dix: 47 T Wave Dix: -20 EKG Severity - ABNORMAL ECG - EKG Impression: SINUS RHYTHM EKG Impression: NONSPECIFIC T ABNORMALITIES, DIFFUSE LEADS EKG Impression: BETTER R WAVE PROGRESSION COMPARED TO OCTOBER 11, 2016 Electronically Signed By: Joe Ford 13-Oct-2016 06:52:06
[2016-10-12] MEDS: ALTEPLASE 2 MG VIAL IVP PRN ×2 (17:02→17:25)
--- NOTE | 2016-10-12 17:03 | HOSPPROG ---
Hospitalist Progress Note Assessment/Plan: * PEA arrest -ECHO during arrest with severe RH failure - but PE ruled out -? due to hypoxia -repeat ECHO much better * Acute respiratory failure due to pulmonary edema -improving with IV lasix * Acute on chronic CHF due to diastolic dysfunction -IVF sepsis bolus tipped into CHF * Cholangitis s/p ERCP with stent -HIDA with good GB visualization - no cholecystostomy tube -eventual lap griffin * Septic shock -IV Levophed - off -empiric abx - IV meropenem * ARF - follow * Troponin elevation - due to arrest -possible cardiac cath in am * Obesity BMI 39 * Below the knee DVT - tiny -serial US - recheck in am Subjective: Extubated this am, currently no complaints. Objective: Vital Signs Temp Pulse Resp BP Pulse Ox 37.3 C 90 33 H 112/89 H 95 10/12/16 16:18 10/12/16 16:18 10/12/16 16:18 10/12/16 16:18 10/12/16 16:18 Microbiology 10/10/16 16:15 - Final Sputum, Induced/Suctioned Laboratory Results 10/12/16 05:40 10/11/16 10/12/16 10/13/16 05:59 05:59 05:59 Intake Total 2001 1017.7 Output Total 2790 2555 1670 Balance -788 -1537.3 -1670 PT 14.5 SEC (12.0-15.0) 10/11/16 03:30 INR 1.14 (0.83-1.16) 10/11/16 03:30 d/w Dr. Leslie - CHELA negative - no need for cholecystostomy tube EKG viewed, my personal interpretation is - flipped twave inferiorly CXR - improving CHF - Physical Exam Constitutional: no apparent distress, appears nourished, not in pain Cardiovascular: regular rate and rhythym, no murmur, rub, or gallop Respiratory: expiratory wheeze, inspiratory crackles, respiratory distress, rhonchi Gastrointestinal: normoactive bowel sounds, soft, non-tender abdomen, no palpable masses Skin: no rashes or abrasions, no fluctuance, no induration Neurologic: AAOx3, sensation intact bilaterally Psychiatric: interacting appropriately, not anxious, not encephalopathic, thought process linear ICD10 Worksheet Patient Problems: Problems Problem Status Onset Choledocholithiasis Acute
[2016-10-12] MEDS: IPRATROPIUM/ALBUTEROL 3 ML DEYVIAL IH SCH (18:35)
[2016-10-12] MEDS: FAMOTIDINE 20 MG TAB PO SCH (19:26)
[2016-10-12 19:27] LABS: POTASSIUM 3.5 mEq/L (3.5-5.2)
[2016-10-12] MEDS: POTASSIUM Cl (KCl) 50 ML IV SCH ×2 (20:26→20:27)
[2016-10-13] MEDS: IPRATROPIUM/ALBUTEROL 3 ML DEYVIAL IH SCH ×4 (01:09→10:50)
[2016-10-13 04:31] LABS: ABSOLUTE NRBC COUNT 0.02 10^3/uL (0-0.01); ADD DIFF? YES; ADD MORPH? NO; ADD SCAN? NO; ATYPICAL LYMPHOCYTE FLAG 0 (0-99); FRAGMENT RBC FLAG 0 (0-99); HEMATOCRIT 34.6 % (38.0-47.0); HEMOGLOBIN 11.4 g/dL (12.6-16.3); IONIZED CALCIUM 1.12 MMOL/L (1.12-1.30); LEFT SHIFT FLG 90 (0-99); LIPEMIA HEMOLYSIS FLAG 80 (0-99); MEAN CELL HEMOGLOBIN 30.7 pg (27.9-34.1); MEAN CELL HEMOGLOBIN CONCENTR. 32.9 g/dL (32.4-36.7); MEAN CELL VOLUME 93.3 fL (81.5-99.8); MEAN PLATELET VOLUME 10.5 fL (8.7-11.7); NRBC-AUTO% 0.2 % (0.0-0.2); PLATELET CLUMPS FLAG 40 (0-99); PLATELET COUNT 111 10^3/uL (150-400); RED BLOOD CELL COUNT 3.71 10^6/uL (4.18-5.33); RED CELL DISTRIBUTION WIDTH 13.6 % (11.5-15.2)
[2016-10-13] MEDS ORDERED: CALCIUM GLUCONATE 50 ML IV ONE (04:50)
[2016-10-13 05:00] LABS: ANION GAP 10 mEq/L (8-16); CALCIUM 8.4 mg/dL (8.5-10.4); CARBON DIOXIDE 26 mEq/l (22-31); CHLORIDE 109 mEq/L (97-110); CHOLESTEROL 211 mg/dL (140-220); CHOLESTEROL/HDL RATIO 8.44 RATIO (1.00-4.44); CREATININE 1.4 mg/dL (0.6-1.0); GLOMERULAR FILTRATION RATE 38; GLUCOSE 112 mg/dL (70-100); HIGH DENSITY LIPOPROTEIN 25 mg/dL (40-85); LDL/HDL RATIO 5.08 RATIO (1.00-3.22); LOW DENSITY LIPOPROTEIN 127 mg/dL (80-100); MAGNESIUM 1.9 mg/dL (1.6-2.3); NON-HIGH DENSITY LIPOPROTEIN 186 mg/dL (90-129); POTASSIUM 3.9 mEq/L (3.5-5.2); SODIUM 145 mEq/L (134-144); TRIGLYCERIDE 298 mg/dL (35-135); VERY LOW DENSITY LIPOPROTEINS 59 mg/dL (8-25)
[2016-10-13] MEDS ORDERED: POTASSIUM Cl (KCl) 50 ML IV ONE (05:10)
[2016-10-13] MEDS: HEPARIN 5,000 UNIT/0.5 ML SYR SC SCH ×3 (05:11→22:00)
[2016-10-13 05:16] LABS: PLATELET ESTIMATE DECREASED (ADEQ); STOMATOCYTES 1+
[2016-10-13] MEDS: MEROPENEM 1 GM in NS 100 ML IV SCH ×2 (07:51→20:33)
[2016-10-13] MEDS: FUROSEMIDE 20 MG/2 ML VIAL IVP SCH ×2 (07:52→16:01)
[2016-10-13] MEDS: FAMOTIDINE 20 MG TAB PO SCH ×2 (07:52→22:00)
[2016-10-13] MEDS: ASPIRIN EC 81 MG TAB PO SCH (07:52)
--- NOTE | 2016-10-13 08:19 | PDINTPN ---
Glass Technician Progress Note Assessment/Plan: Assessment/Plan: * Cholecystitis -surgery following. Awaiting clearance by Cardiology * Status post ERCP * Status post cor-etiology which is unclear. -cardiac catheterization today * Respiratory-stable off mechanical ventilation * Sepsis/septic shock-resolved * Mental status-awake and alert * DVT-off heparin since last night currently on subcu Lovenox * Obesity * Pulmonary edema-improved after diuresis -increase Lasix * Micro-blood cultures currently pending. Now on meropenem * VTE prophylaxis * Stress ulcer prophylaxis Overall improved Subjective: Up in chair. Resting comfortably. Somewhat lethargic this morning Objective: Vital Signs Temp Pulse Resp BP Pulse Ox 37.9 C 95 25 H 138/73 H 94 10/13/16 08:00 10/13/16 08:00 10/13/16 08:00 10/13/16 08:00 10/13/16 08:00 Microbiology 10/10/16 16:15 - Final Sputum, Induced/Suctioned Laboratory Results 10/13/16 04:15 10/13/16 04:15 10/12/16 10/13/16 10/14/16 05:59 05:59 05:59 Intake Total 1017.7 1368 Output Total 2555 3245 Balance -1537.3 -1877 PT 14.5 SEC (12.0-15.0) 10/11/16 03:30 INR 1.14 (0.83-1.16) 10/11/16 03:30 Laboratory Results 10/13/16 04:15 10/13/16 04:15 10/13/16 10/13/16 04:15 04:15 Calcium 8.4 mg/dL L mg/dL (8.5 - 10.4) Ionized Calcium 1.12 MMOL/L MMOL/L (1.12 - 1.30) Magnesium 1.9 mg/dL mg/dL (1.6 - 2.3) Triglycerides 298 mg/dL H mg/dL (35 - 135) Cholesterol 211 mg/dL mg/dL (140 - 220) Cholesterol Risk Factr 2.4 H (0.2 - 1.0) LDL Cholesterol, Calc 127 mg/dL H mg/dL (80 - 100) LDL Risk Factor 2.0 H (0.2 - 1.0) VLDL Cholesterol 59 mg/dL H mg/dL (8 - 25) Non-HDL Cholesterol 186 mg/dL H mg/dL (90 - 129) HDL Cholesterol 25 mg/dL L mg/dL (40 - 85) LDL/HDL Ratio 5.08 RATIO H RATIO (1.00 - 3.22) Cholesterol/HDL Ratio 8.44 RATIO H RATIO (1.00 - 4.44) Physical Exam - Physical Exam General Appearance: alert, no apparent distress Neck: non-tender, full range of motion, supple, normal inspection Respiratory: crackles (Few), No respiratory distress, No stridor, No wheezing Cardiac/Chest: normal peripheral pulses, regular rate, rhythm Peripheral Pulses: 2+: carotid (R), carotid (L), femoral (R), femoral (L), dorsalis-pedis (R), dorsalis-pedis (L) Abdomen: normal bowel sounds, non-tender, soft Pelvic Exam: deferred Rectal: deferred Skin: normal color, warm/dry Neuro/Psych: no motor/sensory deficits, alert, normal mood/affect, oriented x 3 ICD10 Worksheet Patient Problems: Problems Problem Status Onset Choledocholithiasis Acute
--- NOTE | 2016-10-13 10:29 | SOAPPROG ---
VENKATESH Progress Note Assessment/Plan: Assessment:Plan: 10/12/2016 1) biliary - s/p ERCp with stent, LFT's decreasing, HIDA nml, will need GB at in near future 2) ID - abx seem to be effective, no change 3) pulm - extubated today!! as per intensivists 4) Cardiology - prob will be getting cath 5) neuro - intact, she is alert and conversing and joking appropriately will follow 10/12/16 12:00 TODAY'S NOTE BELOW 10/13/16 10:18 as above no changes During ERCp she was stable, it was after ERCP that she became unstable The CO2 monitor on the anesthesia machine went to zero for a brief time. According to Dr. Dodge that was likely due to Vena cava compression so poor blood return to heart/lings vs PE (less likely). We quickly turned pt on to her back to remove force of compression, but despite all his attempts at stabilizing she coded. Since CT angiogram negative and only small dvt PE very unlikely (doubt she autolysed a huge clot). So a possible explanation is right sided failure with poor venous return secondary to vena cava compression caused poor outflow and then the arrest. I called the code when I saw a flat line on the EKG - I cannot say the leads were on at that time, but I think they were. Dr. Layne discusses this in her note after our conversation yesterday. 1) Biliary - will need GB when stable, stent out by 4-6 weeks 2) ID - abx as per ID , doesn't appear septic at present 3) Pulm - extubated, on few liters O2 by NC 4) Cardiology - discussed with Dr. Layne. Cath when more stable I am off service today and will sign off but follow on computer form home and office IF GI help needed, Dr. Taylor will be taking over service at 5pm today Thank you to all involved. Subjective: cc- cholangitis s/p ERCp and stent then code blue pt in chair no GI complaints conversing with myself and her sister Objective: Vital Signs Temp Pulse Resp BP Pulse Ox 37.9 C 95 25 H 138/73 H 94 10/13/16 08:00 10/13/16 08:00 10/13/16 08:00 10/13/16 08:00 10/13/16 08:00 Microbiology 10/10/16 16:15 - Final Sputum, Induced/Suctioned Sputum Culture - Final Laboratory Results 10/13/16 04:15 10/13/16 04:15 10/12/16 10/13/16 10/14/16 05:59 05:59 05:59 Intake Total 1017.7 1368 Output Total 2555 3245 1250 Balance -1537.3 -1877 -1250 PT 14.5 SEC (12.0-15.0) 10/11/16 03:30 INR 1.14 (0.83-1.16) 10/11/16 03:30 Alert and oriented coarse breath sounds anteriorly S1S2 +BS, soft NT ICD10 Worksheet Patient Problems: Problems Problem Status Onset Choledocholithiasis Acute
--- NOTE | 2016-10-13 10:40 | SOAPPROG ---
VENKATESH Progress Note Assessment/Plan: 10/11/16 09:35 Assessment: Improving. Would continue to suggest that surgical intervention be delayed until sepsis resolves and medical issues optimized. Percutaneous drainage ( IR placed cholecystostomy tube remains a temporizing maneuver if needed) 10/13/16 10:30 Assessment: Non tender abdomen. Cardiac evaluation pending. Plan: Will sign off. Please reconsult when she is optimized for surgery. Subjective: no complaints Objective: Vital Signs Temp Pulse Resp BP Pulse Ox 37.9 C 95 25 H 138/73 H 94 10/13/16 08:00 10/13/16 08:00 10/13/16 08:00 10/13/16 08:00 10/13/16 08:00 Microbiology 10/10/16 16:15 - Final Sputum, Induced/Suctioned Sputum Culture - Final Laboratory Results 10/13/16 04:15 10/13/16 04:15 10/12/16 10/13/16 10/14/16 05:59 05:59 05:59 Intake Total 1017.7 1368 Output Total 2555 3245 1250 Balance -1537.3 -1877 -1250 PT 14.5 SEC (12.0-15.0) 10/11/16 03:30 INR 1.14 (0.83-1.16) 10/11/16 03:30 - Time Spent With Patient Time Spent With Patient: 15 - Pending Discharge Pending Discharge Within 24 Hours: No Pending Discharge Within 48 Hours: No Physical Exam - Physical Exam General Appearance: alert, no apparent distress Abdomen: normal bowel sounds, non-tender, soft ICD10 Worksheet Patient Problems: Problems Problem Status Onset Choledocholithiasis Acute
--- NOTE | 2016-10-13 11:17 | PDCARPN ---
Cardiology Progress Note Assessment/Plan: Assessment/plan: 66-year-old female with no known cardiovascular disease. She was admitted on October 08 with abdominal pain and abnormal LFTs. She does have a history of gallstones and prior ERCP. On October 09 she had ERCP with bile duct stenting. At the end of the case she had a hypoxic /hypotensive arrest. According to , she had asystole. Other reports say PEA. There was no report of VF or VT. She was resuscitated with epinephrine, CPR, bicarb. She was intubated in the ICU and maintained on pressors. Pressors were off October 11. She was extubated October 12. Peak troponin was 3.8. Her echocardiogram shows normal LV systolic function without ischemic wall motion abnormalities. Post code echo demonstrates significant RV dilation and RV dysfunction. Her right ventricular parameters improved on her most recent echocardiogram. EKG is nonischemic. 1. Status post arrest: Unclear etiology. No PE on CT pulmonary angiogram. This could have been hemodynamic mediated issue in the patient is relatively pre load in the setting of RV dysfunction. We have not completely ruled out obstructive coronary disease/ACS but this does not seem highly likely. However , given her need for elective cholecystectomy, will need coronary angiogram when she is more medically stable. No need for urgent coronary angiogram at this point as she is now off pressors, nor having chest pain. I would like her creatinine continues to improve and have her be more euvolemic on less oxygen prior to angiogram. She will require an anesthesiologist to be present during her cardiac catheterization. Add low-dose beta-blockers and aspirin. 2. Gallbladder disease: Will need elective cholecystectomy once medically stable. She remains on antibiotics. 3. Hypoxic respiratory failure: Improving. Seem largely related to significant volume resuscitation post arrest. 4. Hypotension requiring pressors: This has resolved. Will add low-dose beta- blockers in the setting of her troponin leak. 5. Acute renal failure: This is in the setting of code. Improving. 6. Obesity: Ongoing outpatient management. 10/13/16 11:15 Subjective: Malorie feels that she has some nasal congestion but denies dyspnea. No angina. Reviewed/Discussed With: family, hospitalist, multidisciplinary team Objective: Vital Signs (8 Hrs) Temp Pulse Resp BP Pulse Ox 10/13/16 10:51 93 23 H 97 10/13/16 10:00 38.0 C 104 H 33 H 95/79 L 92 10/13/16 08:00 37.9 C 95 25 H 138/73 H 94 10/13/16 06:20 89 29 H 96 10/13/16 06:00 38.0 C 89 28 H 132/71 H 98 10/13/16 04:00 38.1 C 95 25 H 100/80 94 Intake/Output (24 Hrs) 10/12/16 10/13/16 10/14/16 05:59 05:59 05:59 Intake Total 1017.7 1368 Output Total 2555 3245 1250 Balance -1537.3 -1877 -1250 Intake: Oral (ml) 735 IV Intake (ml) 619 633 IV Infused (ml) 398.7 Norepinephrine Bitartrate 72.3 4 mg In Ns 500 ml @ Per Protocol IV CONT KATHERYN Rx#: [id number] Propofol/Emulsion 100 ml 270 @ Per Protocol IV CONT KATHERYN Rx#:[id number] fentaNYL/NACL 100 ml @ 56.4 Per Protocol IV CONT KATHERYN Rx#:[id number] Output: Urine (ml) 2505 3245 1250 Catheter 2505 3245 1250 OG Tube Output (ml) 50 Large Bore (>12 [place]) 50 Non-weighted Stomach [place] Other: Weight 101.1 kg 100.3 kg Intake Quantity Yes Sufficient Number of Voids Catheter 1 Number of Stools Catheter 0 Lethargic but oriented. JVP 12. Regular rate and rhythm without murmur or gallop Decreased breath sounds at the left base no wheezes or rales. No rhonchi Extremities are warm with trace to 1+ pitting edema to the midshin bilaterally Result Diagrams: 10/13/16 04:15 10/13/16 04:15 EKG: Sinus rhythm with inferior T-wave inversions. Telemetry: Sinus rhythm and low-grade sinus tachycardia ICD10 Worksheet Patient Problems: Problems Problem Status Onset Choledocholithiasis Acute
[2016-10-13] MEDS: METOPROLOL TARTRATE 25 MG TAB PO SCH ×2 (12:16→22:00)
--- NOTE | 2016-10-13 16:03 | HOSPPROG ---
Hospitalist Progress Note Assessment/Plan: # PEA arrest -ECHO during arrest with severe RH failure - but PE ruled out Repeat ECHO improved - TELE (personally reviewed and interpreted) sinus rhythm - cardiac catheterization when renal function improved # Acute respiratory failure - presumed due to pulmonary edema oxygen saturations 88-90% on RA -cont IV lasix # Acute on chronic CHF due to diastolic dysfunction -IVF sepsis bolus tipped into CHF - cont careful diuresis # Cholangitis s/p ERCP with stent -HIDA with good GB visualization - no cholecystostomy tube -eventual lap griffin # Septic shock - clinically improved -weaned off Levophed- BCX NGTD -cont empiric IV meropenem * GABE - creatinine 1.4 this am on careful diuresis - follow # Troponin elevation - due to arrest - cardiac cath when renal function stabilizes * Obesity BMI 39 * Below the knee DVT - tiny serial US - stable on recheck today # proph - heparin sq # dispo - > 2MN as requiring ongoing monitoring and diagnostics post arrest I have discussed the case with Dr. Layne - we will wait on cardiac cath today Subjective: sob improved Objective: Vital Signs Temp Pulse Resp BP Pulse Ox 38.1 C 85 25 H 117/76 93 10/13/16 14:00 10/13/16 14:00 10/13/16 14:00 10/13/16 14:00 10/13/16 14:00 Microbiology 10/10/16 16:15 - Final Sputum, Induced/Suctioned Sputum Culture - Final Laboratory Results 10/13/16 04:15 10/13/16 04:15 10/12/16 10/13/16 10/14/16 05:59 05:59 05:59 Intake Total 1017.7 1368 Output Total 2555 3245 1250 Balance -1537.3 -1877 -1250 PT 14.5 SEC (12.0-15.0) 10/11/16 03:30 INR 1.14 (0.83-1.16) 10/11/16 03:30 - Physical Exam Constitutional: obese Eyes: anicteric sclera Ears, Nose, Mouth, Throat: moist mucous membranes Cardiovascular: regular rate and rhythym Respiratory: no respiratory distress, inspiratory crackles Gastrointestinal: normoactive bowel sounds Genitourinary: no bladder fullness Skin: warm Musculoskeletal: No asymmetric calves Neurologic: AAOx3 Psychiatric: interacting appropriately Lymph, Heme, Immunologic: no cervical LAD ICD10 Worksheet Patient Problems: Problems Problem Status Onset Choledocholithiasis Acute
[2016-10-13] MEDS ORDERED: IPRATROPIUM/ALBUTEROL 3 ML DEYVIAL IH PRN (16:08)
[2016-10-13 19:24] LABS: POTASSIUM 3.9 mEq/L (3.5-5.2)
[2016-10-13] MEDS ORDERED: POTASSIUM CL 10 MEQ TAB PO ONE (22:04)
[2016-10-14 04:25] LABS: ADD DIFF? YES; ADD MORPH? NO; ATYPICAL LYMPHOCYTE FLAG 70 (0-99); FRAGMENT RBC FLAG 0 (0-99); HEMATOCRIT 34.3 % (38.0-47.0); HEMOGLOBIN 11.1 g/dL (12.6-16.3); LIPEMIA HEMOLYSIS FLAG 80 (0-99); MEAN CELL HEMOGLOBIN 30.2 pg (27.9-34.1); MEAN CELL HEMOGLOBIN CONCENTR. 32.4 g/dL (32.4-36.7); MEAN CELL VOLUME 93.5 fL (81.5-99.8); MEAN PLATELET VOLUME 9.9 fL (8.7-11.7); PLATELET CLUMPS FLAG 10 (0-99); PLATELET COUNT 140 10^3/uL (150-400); RED BLOOD CELL COUNT 3.67 10^6/uL (4.18-5.33); RED CELL DISTRIBUTION WIDTH 13.2 % (11.5-15.2)
[2016-10-14 04:26] LABS: ADD SCAN? NO; LEFT SHIFT FLG 100 (0-99)
[2016-10-14 04:41] LABS: ANION GAP 10 mEq/L (8-16); CALCIUM 8.8 mg/dL (8.5-10.4); CARBON DIOXIDE 25 mEq/l (22-31); CHLORIDE 106 mEq/L (97-110); CREATININE 1.2 mg/dL (0.6-1.0); GLOMERULAR FILTRATION RATE 45; GLUCOSE 105 mg/dL (70-100); SODIUM 141 mEq/L (134-144)
[2016-10-14 05:15] LABS: PLATELET ESTIMATE DECREASED (ADEQ)
[2016-10-14] MEDS: HEPARIN 5,000 UNIT/0.5 ML SYR SC SCH ×3 (06:28→21:18)
[2016-10-14] MEDS: MEROPENEM 1 GM in NS 100 ML IV SCH ×2 (07:16→19:54)
--- NOTE | 2016-10-14 08:34 | PDINTPN ---
Manager Analytical Progress Note Assessment/Plan: Assessment/Plan: * Cholecystitis -surgery following. Awaiting clearance by Cardiology -continue meropenem * Status post ERCP * Status post cor-etiology which is unclear. -cardiac catheterization in soon * Respiratory-stable * Sepsis/septic shock-resolved * Mental status-awake and alert * DVT-off heparin since last night currently on subcu Lovenox * Obesity * Pulmonary edema-improved after diuresis -increase Lasix * VTE prophylaxis * Stress ulcer prophylaxis Overall improved Subjective: Up in a chair, resting comfortably Objective: Vital Signs Temp Pulse Resp BP Pulse Ox 37.2 C 93 22 H 115/76 94 10/14/16 07:47 10/14/16 07:47 10/14/16 06:00 10/14/16 07:47 10/14/16 07:47 Microbiology 10/10/16 16:15 - Final Sputum, Induced/Suctioned Sputum Culture - Final Laboratory Results 10/14/16 04:15 10/14/16 04:15 10/13/16 10/14/16 10/15/16 05:59 05:59 05:59 Intake Total 1368 1701 Output Total 3245 3150 Balance -1877 -1449 PT 14.5 SEC (12.0-15.0) 10/11/16 03:30 INR 1.14 (0.83-1.16) 10/11/16 03:30 Physical Exam - Physical Exam General Appearance: alert, no apparent distress EENT: PERRL/EOMI, normal ENT inspection, pharynx normal, TMs normal Neck: non-tender, full range of motion, supple, normal inspection Respiratory: rales (Few), No respiratory distress Cardiac/Chest: normal peripheral pulses, regular rate, rhythm Peripheral Pulses: 2+: carotid (R), carotid (L), femoral (R), femoral (L), dorsalis-pedis (R), dorsalis-pedis (L) Abdomen: normal bowel sounds, non-tender, soft Pelvic Exam: deferred Rectal: deferred Skin: normal color, warm/dry Extremities: normal range of motion, non-tender, normal inspection, normal capillary refill Neuro/Psych: alert ICD10 Worksheet Patient Problems: Problems Problem Status Onset Choledocholithiasis Acute
[2016-10-14] MEDS: ASPIRIN EC 81 MG TAB PO SCH (08:35)
[2016-10-14] MEDS: FUROSEMIDE 20 MG/2 ML VIAL IVP SCH (08:35)
[2016-10-14] MEDS: METOPROLOL TARTRATE 25 MG TAB PO SCH ×2 (08:35→19:54)
[2016-10-14] MEDS: FAMOTIDINE 20 MG TAB PO SCH ×2 (08:36→19:54)
--- NOTE | 2016-10-14 09:20 | PDCARPN ---
Cardiology Progress Note Chief Complaint: No complaints were voiced today. Speech is working with patient this morning. Assessment/Plan: Assessment: Patient is a 66 y/o female with known gall stones and pending need for cholecystectomy, but during ERCP, cardiovascular "arrest" was noted. CPR with intubation ensued, and support was maintained until 10-11-16. At present, the patient is without cardiovascular complaints. Cardiac biomarker elevation was noted, and plans for angiography to better assess cardiovascular risk pre surgery. Mild elevation in creatinine continues to be noted (but trend has been toward normal). ECG without ischaemic changes noted. Echocardiogram with normal left ventricular systolic ejection fraction post arrest. Plan: (1) Would continue supportive measures as at present (2) Would plan for angiography early next week - monitor electrolytes - monitor renal function (3) Continue therapy on lopressor for HTN history (elevation was noted, but pressures are better controlled today) (4) Will follow this patient over the weekend Reviewed/Discussed With: multidisciplinary team Objective: Vital Signs (8 Hrs) Temp Pulse Resp BP Pulse Ox 10/14/16 08:35 95 123/75 H 10/14/16 07:47 37.2 C 93 115/76 94 10/14/16 06:00 37.6 C 86 22 H 99 10/14/16 04:00 37.6 C 78 25 H 150/84 H 92 10/14/16 02:00 37.5 C 89 26 H 151/81 H 92 Intake/Output (24 Hrs) 10/13/16 10/14/16 10/15/16 05:59 05:59 05:59 Intake Total 1368 1701 Output Total 3245 3150 Balance -1877 -1449 Intake: Oral (ml) 735 1250 IV Intake (ml) 633 451 Output: Urine (ml) 3245 3150 Catheter 3245 3150 Other: Weight 100.3 kg Intake Quantity Yes Sufficient Number of Voids Catheter 1 Number of Stools Catheter 0 1 Result Diagrams: 10/14/16 04:15 10/14/16 04:15 Telemetry: normal sinus rhythm 85-90 bpm. - Physical Exam Constitutional: healthy appearing, no apparent distress, obese Eyes: PERRL, EOMI Ears, Nose, Mouth, Throat: moist mucous membranes Cardiovascular: regular rate and rhythm, no murmurs, no rubs, no gallops, No jugular vein distention Peripheral Pulses: 2+: dorsalis-pedis (R), dorsalis-pedis (L) Respiratory: clear to auscultate bilat, no crackles Gastrointestinal: normoactive bowel sounds Skin: no rashes, no edema Musculoskeletal: no muscular tenderness Neurologic: AAOx3, CN II-XII grossly intact Psychiatric: cooperative, interactive, following commands ICD10 Worksheet Patient Problems: Problems Problem Status Onset Choledocholithiasis Acute
--- NOTE | 2016-10-14 13:16 | HOSPPROG ---
Hospitalist Progress Note Assessment/Plan: # PEA arrest -ECHO during arrest with severe RH failure - but PE ruled out Repeat ECHO improved - TELE (personally reviewed and interpreted) remains sinus rhythm 70-90's - cardiac catheterization when renal function improved - cont ASA and metoprolol # Acute respiratory failure - presumed due to pulmonary edema CXR (personally reviewed and interpreted) significantly improved pulmonary edema oxygen saturations 95% on 1L -decrease IV lasix # Acute on chronic CHF due to diastolic dysfunction -IVF sepsis bolus tipped into CHF - decrease diuresis # Cholangitis s/p ERCP with stent -HIDA with good GB visualization - no cholecystostomy tube -eventual lap griffin - cont IV abx # Septic shock - clinically improved -weaned off Levophed- BCX NGTD -cont empiric IV meropenem * GABE - creatinine 1.2 this am - follow daily # Troponin elevation - due to arrest - cardiac cath when renal function stabilizes * Obesity BMI 39 * Below the knee DVT - tiny serial US - stable on recheck today # proph - heparin sq # dispo - > 2MN as requiring ongoing monitoring and diagnostics post arrest I have discussed the case with Dr. Lozano - pt stable enough to transfer to PCU Subjective: sob improved Objective: Vital Signs Temp Pulse Resp BP Pulse Ox 36.9 C 80 24 H 127/72 H 95 10/14/16 11:47 10/14/16 11:47 10/14/16 11:47 10/14/16 11:47 10/14/16 11:47 Microbiology 10/09/16 08:30 Blood Culture - Final Blood 10/09/16 08:10 Blood Culture - Final Blood 10/10/16 16:15 - Final Sputum, Induced/Suctioned Sputum Culture - Final Laboratory Results 10/14/16 04:15 10/14/16 04:15 10/13/16 10/14/16 10/15/16 05:59 05:59 05:59 Intake Total 1368 1701 Output Total 3245 3150 1050 Balance -1877 -1449 -1050 PT 14.5 SEC (12.0-15.0) 10/11/16 03:30 INR 1.14 (0.83-1.16) 10/11/16 03:30 - Physical Exam Constitutional: obese Eyes: anicteric sclera Ears, Nose, Mouth, Throat: moist mucous membranes Cardiovascular: regular rate and rhythym Respiratory: no respiratory distress, inspiratory crackles Gastrointestinal: normoactive bowel sounds, soft, non-tender abdomen Genitourinary: no bladder fullness Skin: warm, normal color Musculoskeletal: No asymmetric calves Neurologic: AAOx3 Psychiatric: interacting appropriately, not anxious Lymph, Heme, Immunologic: no cervical LAD ICD10 Worksheet Patient Problems: Problems Problem Status Onset Choledocholithiasis Acute
[2016-10-14 18:30] LABS: POTASSIUM 3.8 mEq/L (3.5-5.2)
[2016-10-14] MEDS ORDERED: POTASSIUM CL 10 MEQ TAB PO ONE (19:33)
[2016-10-15] MEDS: HEPARIN 5,000 UNIT/0.5 ML SYR SC SCH ×3 (05:27→21:06)
[2016-10-15 05:41] LABS: ADD DIFF? YES; ADD MORPH? NO; FRAGMENT RBC FLAG 0 (0-99); HEMOGLOBIN 11.1 g/dL (12.6-16.3); LEFT SHIFT FLG 90 (0-99); LIPEMIA HEMOLYSIS FLAG 80 (0-99); MEAN CELL HEMOGLOBIN 31.1 pg (27.9-34.1); MEAN CELL HEMOGLOBIN CONCENTR. 33.6 g/dL (32.4-36.7); MEAN CELL VOLUME 92.4 fL (81.5-99.8); MEAN PLATELET VOLUME 9.6 fL (8.7-11.7); PLATELET CLUMPS FLAG 0 (0-99); PLATELET COUNT 186 10^3/uL (150-400); RED BLOOD CELL COUNT 3.57 10^6/uL (4.18-5.33); RED CELL DISTRIBUTION WIDTH 12.8 % (11.5-15.2)
[2016-10-15 05:42] LABS: ADD SCAN? NO; ATYPICAL LYMPHOCYTE FLAG 100 (0-99)
[2016-10-15 05:58] LABS: ANION GAP 8 mEq/L (8-16); CALCIUM 8.6 mg/dL (8.5-10.4); CARBON DIOXIDE 27 mEq/l (22-31); CHLORIDE 105 mEq/L (97-110); CREATININE 1.1 mg/dL (0.6-1.0); GLOMERULAR FILTRATION RATE 50; GLUCOSE 98 mg/dL (70-100); POTASSIUM 4.1 mEq/L (3.5-5.2); SODIUM 140 mEq/L (134-144)
[2016-10-15 06:06] LABS: PLATELET ESTIMATE ADEQUATE (ADEQ)
[2016-10-15] MEDS: MEROPENEM 1 GM in NS 100 ML IV SCH ×2 (07:26→20:28)
--- NOTE | 2016-10-15 08:16 | PDCARPN ---
Cardiology Progress Note Chief Complaint: No cardiovascular complaints today. Sleep was "fair" overnight. No pains. Assessment/Plan: Assessment: 10-15-16 Patient doing well at present. No reported events overnight. Continued improvement in renal function noted. Blood pressure with mild elevation today ( 155-160 mm Hg systolic). No chest pains or pressure. No PND or orthopnea. Patient sitting up in chair this morning. Friend/family present in the room with patient. 10-14-16 Patient is a 66 y/o female with known gall stones and pending need for cholecystectomy, but during ERCP, cardiovascular "arrest" was noted. CPR with intubation ensued, and support was maintained until 10-11-16. At present, the patient is without cardiovascular complaints. Cardiac biomarker elevation was noted, and plans for angiography to better assess cardiovascular risk pre surgery. Mild elevation in creatinine continues to be noted (but trend has been toward normal). ECG without ischaemic changes noted. Echocardiogram with normal left ventricular systolic ejection fraction post arrest. Plan: (1) Will schedule for angiogram tomorrow (schedule allowing) (2) Continue to follow BMP (electrolytes and renal function (3) Heart rate and blood pressure would tolerated an uptitration of the lopressor (to 25 mg twice per day) (4) Will continue to follow this patient Subjective: No cardiovascular complaints Objective: Vital Signs (8 Hrs) Temp Pulse Resp BP Pulse Ox 10/15/16 04:00 36.6 C 69 20 142/105 H 95 Intake/Output (24 Hrs) 10/14/16 10/15/16 10/16/16 05:59 05:59 05:59 Intake Total 1701 150 Output Total 3150 1850 400 Balance -1449 -1700 -400 Intake: Oral (ml) 1250 150 IV Intake (ml) 451 Output: Urine (ml) 3150 1850 400 Catheter 3150 1050 Toilet 800 400 Other: Intake Quantity Yes Sufficient Number of Voids Catheter 1 Toilet 1 Number of Stools Catheter 1 Toilet 1 Post Void Residual Scan Volume (ml) Toilet 84 Result Diagrams: 10/15/16 05:38 10/15/16 05:38 Telemetry: Sinus rhythm - Physical Exam Constitutional: WDWN, healthy appearing, obese Eyes: PERRL, EOMI Ears, Nose, Mouth, Throat: moist mucous membranes Cardiovascular: regular rate and rhythm, no murmurs, no rubs, no gallops Peripheral Pulses: 2+: dorsalis-pedis (R), dorsalis-pedis (L) Respiratory: clear to auscultate bilat, no crackles, no wheezes Gastrointestinal: normoactive bowel sounds, no tenderness Skin: no rashes, no edema Musculoskeletal: no muscular tenderness Neurologic: AAOx3, CN II-XII grossly intact Psychiatric: cooperative, interactive, following commands ICD10 Worksheet Patient Problems: Problems Problem Status Onset Choledocholithiasis Acute
[2016-10-15] MEDS ORDERED: diphenhydrAMINE 25 MG CAP PO ONE (08:18)
[2016-10-15] MEDS ORDERED: ACETAMINOPHEN 325 MG TAB PO PRN (08:18)
[2016-10-15] MEDS ORDERED: NITROGLYCERIN 0.4 MG BTL SL PRN (08:18)
[2016-10-15] MEDS ORDERED: TEMAZEPAM 15 MG CAP PO PRN (08:18)
[2016-10-15] MEDS ORDERED: DIAZEPAM 5 MG TAB PO ONE (08:18)
[2016-10-15] MEDS ORDERED: ASPIRIN EC 325 MG TAB PO ONE (08:18)
[2016-10-15] MEDS: METOPROLOL TARTRATE 25 MG TAB PO SCH ×3 (09:44→20:28)
[2016-10-15] MEDS: ASPIRIN EC 81 MG TAB PO SCH (09:52)
[2016-10-15] MEDS: FAMOTIDINE 20 MG TAB PO SCH ×2 (09:52→20:28)
[2016-10-15] MEDS ORDERED: FUROSEMIDE 20 MG/2 ML VIAL IVP ONE (11:19)
--- NOTE | 2016-10-15 11:20 | HOSPPROG ---
Hospitalist Progress Note Assessment/Plan: # PEA arrest -ECHO during arrest with severe RH failure - but PE ruled out Repeat ECHO improved - TELE (personally reviewed and interpreted) remains sinus rhythm 60-80's - cardiac catheterization in am - cont ASA and metoprolol - npo after midnight # Acute respiratory failure - presumed due to pulmonary edema CXR -significantly improved pulmonary edema oxygen saturations 95% on 3L - IV lasix prn- will give one dose iv today # Acute on chronic CHF due to diastolic dysfunction -IVF sepsis bolus tipped into CHF - decrease diuresis # Cholangitis s/p ERCP with stent -HIDA with good GB visualization - no cholecystostomy tube -eventual lap griffin - cont IV abx # Septic shock - clinically improved -weaned off Levophed- BCX NGTD -cont empiric IV meropenem * GABE - creatinine 1.1 this am - follow daily # Troponin elevation - due to arrest - cardiac cath when renal function stabilizes * Obesity BMI 39 * Below the knee DVT - tiny serial US - stable on recheck today # proph - heparin sq # dispo - > 2MN as requiring ongoing monitoring and diagnostics post arrest I have discussed the case with Dr. Morin- plan for cath tomorrow Subjective: some sob Objective: Vital Signs Temp Pulse Resp BP Pulse Ox 37.1 C 79 18 158/92 H 94 10/15/16 08:00 10/15/16 08:00 10/15/16 08:00 10/15/16 08:00 10/15/16 08:00 Microbiology 10/09/16 08:30 Blood Culture - Final Blood 10/09/16 08:10 Blood Culture - Final Blood Laboratory Results 10/15/16 05:38 10/15/16 05:38 10/14/16 10/15/16 10/16/16 05:59 05:59 05:59 Intake Total 1701 150 Output Total 3150 1850 400 Balance -1449 -1700 -400 PT 14.5 SEC (12.0-15.0) 10/11/16 03:30 INR 1.14 (0.83-1.16) 10/11/16 03:30 - Physical Exam Constitutional: obese Eyes: anicteric sclera Ears, Nose, Mouth, Throat: moist mucous membranes Cardiovascular: regular rate and rhythym, systolic murmur Respiratory: no respiratory distress, No expiratory wheeze Gastrointestinal: normoactive bowel sounds Genitourinary: no bladder fullness Skin: warm, normal color Musculoskeletal: No asymmetric calves Neurologic: AAOx3 Psychiatric: interacting appropriately, not anxious Lymph, Heme, Immunologic: no cervical LAD ICD10 Worksheet Patient Problems: Problems Problem Status Onset Choledocholithiasis Acute
[2016-10-15 18:41] LABS: POTASSIUM 3.9 mEq/L (3.5-5.2)
[2016-10-15] MEDS ORDERED: POTASSIUM CL 10 MEQ TAB PO ONE ×2 (19:41→20:59)
[2016-10-16] MEDS: HEPARIN 5,000 UNIT/0.5 ML SYR SC SCH ×2 (06:07→14:58)
[2016-10-16 06:44] LABS: ANION GAP 9 mEq/L (8-16); CALCIUM 8.5 mg/dL (8.5-10.4); CARBON DIOXIDE 27 mEq/l (22-31); CHLORIDE 105 mEq/L (97-110); GLOMERULAR FILTRATION RATE 56; GLUCOSE 84 mg/dL (70-100); POTASSIUM 4.1 mEq/L (3.5-5.2); SODIUM 141 mEq/L (134-144)
[2016-10-16 07:50] LABS: HEMATOCRIT 33.4 % (38.0-47.0); MEAN CELL HEMOGLOBIN 30.5 pg (27.9-34.1); MEAN CELL HEMOGLOBIN CONCENTR. 32.9 g/dL (32.4-36.7); MEAN CELL VOLUME 92.5 fL (81.5-99.8); RED BLOOD CELL COUNT 3.61 10^6/uL (4.18-5.33); RED CELL DISTRIBUTION WIDTH 12.9 % (11.5-15.2)
[2016-10-16 07:56] LABS: APTT 33.5 SEC (23.0-38.0)
[2016-10-16] MEDS: MEROPENEM 1 GM in NS 100 ML IV SCH ×2 (08:13→20:46)
[2016-10-16 08:14] LABS: INR 0.93 (0.83-1.16); PROTIME(PATIENT) 12.4 SEC (12.0-15.0)
[2016-10-16] MEDS ORDERED: DIAZEPAM 5 MG TAB PO ONE (09:00)
[2016-10-16] MEDS ORDERED: diphenhydrAMINE 25 MG CAP PO ONE (09:00)
[2016-10-16] MEDS ORDERED: ASPIRIN EC 325 MG TAB PO ONE (09:00)
[2016-10-16] MEDS: ASPIRIN EC 81 MG TAB PO SCH (09:45)
[2016-10-16] MEDS: FAMOTIDINE 20 MG TAB PO SCH ×2 (09:48→20:46)
[2016-10-16] MEDS ORDERED: LIDOCAINE 1% 300 MG/30 ML SDV ONE (09:50)
[2016-10-16] MEDS ORDERED: fentaNYL 100 MCG/2 ML INJ ONE (09:50)
[2016-10-16] MEDS ORDERED: MIDAZOLAM 2 MG/2 ML VIAL ONE (09:50)
[2016-10-16] MEDS ORDERED: IOPAMIDOL (ISOVUE-370) 150 ML BTL IV ONE ×2 (09:51→10:39)
[2016-10-16] MEDS ORDERED: BIVALIRUDIN 250 MG/5 ML VIAL IV ONE (10:59)
[2016-10-16] MEDS ORDERED: NITROGLYCERIN 1,500 MCG/15 ML VIAL MISC ONE (11:02)
[2016-10-16] MEDS ORDERED: CLOPIDOGREL BISULFATE 75 MG TAB ONE (11:23)
--- NOTE | 2016-10-16 11:29 | PDDXCAT ---
Diagnostic Cath Note - . Date: 10/16/16 Control Tower Operator: Mikel Indication: CCC Class III and IV angina on medical treatment, Resuscitated from sudden cardiac - Procedure Access: right groin Procedure: left heart catheterization, coronary angiography, left ventriculogram - Materials Left Heart Cath size: 6F Left Heart Cath materials: standard multipack (JL4, JR4, pigtail) - Findings-Left Heart Catheterization LM: Short vessel with bifurcation into the LAD and LCX vessels. No luminal irregularities were noted LAD: Medium sized vessel with two lesions - one in the proximal portion of the vessel (80%) and one in the mid (just distal to the Diagonal (90%). LCX: Medium sized vessel with principal OM (equal in magnitude to the take off from the LCX). No luminal irregularities were noted. RCA: Dominant vessel with supply to the PDA. Medium diameter vessel without luminal irregularities noted. EDP: 18 mm Hg LVEF: 60% Wall motion: normal wall motion Complications: none Estimated blood loss: <50ml Closure method: Angioseal Assessment: 66 y/o female with pending need for cholecystectomy s/p recent ERCP and "arrest" at end of procedure. Over weekend, the patient was medically managed (renal function was elevated, but normalized today). Angiography with critical lesions (2) to the proximal and mid LAD. Normal LVEF. Normal wall motion. Plan: Dr. Na Mcclelland to perform PCI to the lesions. Of pending concerns is the need for the patient to have cholecystectomy prior to discharge to home (ERCP with pus noted periprocedurally). Either way, the patient needs to have intervention to the critical lesions that were noted to the LAD. Intervention: Two stents were placed to the lesions of the LAD. Patient Problems: Problems Problem Status Onset Choledocholithiasis Acute
[2016-10-16] MEDS ORDERED: ATROPINE SULFATE 1 MG/10 ML SYR IVP PRN (11:44)
[2016-10-16] MEDS ORDERED: CLOPIDOGREL BISULFATE 75 MG TAB PO ONE (11:44)
--- NOTE | 2016-10-16 11:44 | PDCTREPORT ---
Cardiothoracic Procedure Rpt Cardiothoracic Procedure Report: Procedure: PCI and stenting of the LAD. Indications: Cardiac arrest. After reviewing diagnostic angiograms performed by my partner Dr. Wilber Morin was elected to proceed with PCI. Patient was anticoagulated with Angiomax. Using a 6 [place] JL 4 guiding catheter left main coronary selectively intubated. Using a 0.014 luge wire the LAD stenoses were crossed. It was elected to proceed with to short-segment stents to reduce risk of thrombosis. A 3.0 x 8 mm synergy stent was placed across the distal lesion and deployed using a single inflation. A 3.5 x 8 mm synergy stent was placed proximally and deployed using a single inflation. Repeat angiogram showed TAWNYA grade 3 flow. Impression: Successful PCI and stenting of the LAD in the setting of cardiac arrest. Recommend aggressive secondary prevention: Dual antiplatelet therapy. Clinical follow-up. Results discussed with Dr. Morin Patient Problems: Problems Problem Status Onset Choledocholithiasis Acute
[2016-10-16] MEDS ORDERED: NS 1,000 ML IV SCH (11:45)
--- NOTE | 2016-10-16 12:08 | CPEKG ---
Heart Rate: 60 RR Interval: 1000 P-R Interval: 140 QRSD Interval: 92 QT Interval: 432 QTC Interval: 432 P [place]: 49 QRS [place]: 33 T Wave [place]: 0 EKG Severity - BORDERLINE ECG - EKG Impression: SINUS RHYTHM EKG Impression: BORDERLINE T ABNORMALITIES, INFERIOR LEADS Electronically Signed By: Wilber Morin 16-Oct-2016 12:58:12
--- NOTE | 2016-10-16 14:53 | HOSPPROG ---
Hospitalist Progress Note Assessment/Plan: # PEA arrest -ECHO during arrest with severe RH failure - but PE ruled out Repeat ECHO improved - TELE (personally reviewed and interpreted) remains sinus rhythm 60-80's - cardiac catheterization today - cont ASA and metoprolol - npo # Acute respiratory failure - presumed due to pulmonary edema CXR -significantly improved pulmonary edema oxygen saturations 97% on 1.5 L - IV lasix prn- received one dose yesterday # Acute on chronic CHF due to diastolic dysfunction -IVF sepsis bolus tipped into CHF - decreased diuresis # Cholangitis s/p ERCP with stent -HIDA with good GB visualization - no cholecystostomy tube -eventual lap griffin - cont IV abx # Septic shock - clinically improved -weaned off Levophed- BCX NGTD -cont empiric IV meropenem * GABE - creatinine 1.0 this am - follow after contrast for cath # Troponin elevation - due to arrest - cardiac cath today * Obesity BMI 39 * Below the knee DVT - tiny serial US - stable on recheck today # proph - heparin sq # dispo - > 2MN as requiring ongoing monitoring and diagnostics post arrest I have discussed the case with Dr. Morin- cath today Subjective: sob improved this am Objective: Vital Signs Temp Pulse Resp BP Pulse Ox 37.1 C 71 17 117/81 H 97 10/16/16 07:44 10/16/16 14:24 10/16/16 14:24 10/16/16 14:24 10/16/16 14:24 Laboratory Results 10/16/16 06:00 10/16/16 06:00 10/15/16 10/16/16 10/17/16 05:59 05:59 05:59 Intake Total 150 245 Output Total 1850 1250 900 Balance -1700 -1005 -900 PT 12.4 SEC (12.0-15.0) 10/16/16 07:41 INR 0.93 (0.83-1.16) 10/16/16 07:41 - Physical Exam Constitutional: obese Eyes: anicteric sclera Ears, Nose, Mouth, Throat: moist mucous membranes Cardiovascular: regular rate and rhythym, systolic murmur Respiratory: no respiratory distress, reduced air movement Gastrointestinal: normoactive bowel sounds, soft, non-tender abdomen Genitourinary: no bladder fullness Skin: warm, normal color Musculoskeletal: No asymmetric calves Neurologic: AAOx3 Psychiatric: interacting appropriately, not anxious Lymph, Heme, Immunologic: no cervical LAD ICD10 Worksheet Patient Problems: Problems Problem Status Onset Choledocholithiasis Acute
[2016-10-16] MEDS: METOPROLOL TARTRATE 25 MG TAB PO SCH ×2 (14:54→20:46)
[2016-10-16 18:56] LABS: POTASSIUM 4.2 mEq/L (3.5-5.2)
--- NOTE | 2016-10-16 22:38 | SOAPPROG ---
VENKATESH Progress Note Assessment/Plan: Assessment: 66-year-old female with acute cholecystitis now status post cardiac stents Still needs cholecystectomy and preferably on this admission She will require Plavix for some time so not much point in waiting for cholecystectomy Plan: Lap choly this admission/will discuss with the patient's and cardiology in a.m. 10/16/16 22:37 Objective: Vital Signs Temp Pulse Resp BP Pulse Ox 36.8 C 68 18 129/87 H 97 10/16/16 19:29 10/16/16 19:29 10/16/16 19:29 10/16/16 19:29 10/16/16 19:29 Laboratory Results 10/16/16 06:00 10/16/16 18:00 10/15/16 10/16/16 10/17/16 05:59 05:59 05:59 Intake Total 940 739 7973 Output Total 1850 1250 1650 Balance -1700 -1005 -510 PT 12.4 SEC (12.0-15.0) 10/16/16 07:41 INR 0.93 (0.83-1.16) 10/16/16 07:41 ICD10 Worksheet Patient Problems: Problems Problem Status Onset Choledocholithiasis Acute
[2016-10-17 05:37] LABS: ADD DIFF? YES; ADD MORPH? NO; ADD SCAN? NO; ATYPICAL LYMPHOCYTE FLAG 60 (0-99); FRAGMENT RBC FLAG 0 (0-99); HEMOGLOBIN 10.8 g/dL (12.6-16.3); LEFT SHIFT FLG 40 (0-99); LIPEMIA HEMOLYSIS FLAG 80 (0-99); MEAN CELL HEMOGLOBIN 30.4 pg (27.9-34.1); MEAN CELL HEMOGLOBIN CONCENTR. 32.7 g/dL (32.4-36.7); MEAN PLATELET VOLUME 9.5 fL (8.7-11.7); PLATELET CLUMPS FLAG 10 (0-99); PLATELET COUNT 256 10^3/uL (150-400); RED BLOOD CELL COUNT 3.55 10^6/uL (4.18-5.33); RED CELL DISTRIBUTION WIDTH 12.7 % (11.5-15.2)
[2016-10-17 05:54] LABS: ALANINE AMINOTRANSFERASE 66 IU/L (9-52); ALBUMIN 2.8 g/dL (3.5-5.0); ALKALINE PHOSPHATASE 135 IU/L (38-126); ANION GAP 7 mEq/L (8-16); ASPARTATE AMINOTRANSFERASE 41 IU/L (14-46); BILIRUBIN-CONJUGATED 0.6 mg/dL (0.0-0.5); BILIRUBIN-UNCONJUGATED 0.4 mg/dL (0.0-1.1); CALCIUM 8.7 mg/dL (8.5-10.4); CARBON DIOXIDE 27 mEq/l (22-31); CHLORIDE 105 mEq/L (97-110); GLOMERULAR FILTRATION RATE 56; GLUCOSE 82 mg/dL (70-100); LACTATE DEHYDROGENASE 579 IU/L (313-618); POTASSIUM 4.3 mEq/L (3.5-5.2); SODIUM 139 mEq/L (134-144); TOTAL PROTEIN 5.7 g/dL (6.3-8.2)
[2016-10-17 06:19] LABS: MACROCYTES 1+; PLATELET ESTIMATE ADEQUATE (ADEQ)
[2016-10-17] MEDS: CLOPIDOGREL BISULFATE 75 MG TAB PO SCH (08:20)
[2016-10-17] MEDS: METOPROLOL TARTRATE 25 MG TAB PO SCH ×2 (08:20→21:34)
[2016-10-17] MEDS: MEROPENEM 1 GM in NS 100 ML IV SCH ×2 (08:20→19:59)
[2016-10-17] MEDS: FAMOTIDINE 20 MG TAB PO SCH ×2 (08:21→21:34)
[2016-10-17] MEDS: ENOXAPARIN 40 MG/0.4 ML SYR SC SCH (08:22)
[2016-10-17] MEDS: ASPIRIN EC 81 MG TAB PO SCH (08:22)
--- NOTE | 2016-10-17 09:09 | CPEKG ---
Heart Rate: 70 RR Interval: 857 P-R Interval: 136 QRSD Interval: 94 QT Interval: 424 QTC Interval: 458 P [place]: 45 QRS [place]: 13 T Wave [place]: -9 EKG Severity - BORDERLINE ECG - EKG Impression: SINUS RHYTHM EKG Impression: BORDERLINE INFERIOR Q WAVES EKG Impression: BORDERLINE T ABNORMALITIES, INFERIOR LEADS Electronically Signed By: Wilber Morin 17-Oct-2016 09:18:28
--- NOTE | 2016-10-17 09:14 | SOAPPROG ---
SOAP Progress Note Assessment/Plan: Assessment/Plan: 66 Y F multiple medical problems, s/p coronary stents, + cholelithiasis. Plan for lap griffin, pos IOC, in OR tomorrow. NPO p midnight. Hold lovenox. Consent in chart. Pt at increased risk of bleeding 2/2 to her plavix, but benefit of plavix outweighs risk. 10/17/16 09:13 Objective: Vital Signs Temp Pulse Resp BP Pulse Ox 37.1 C 66 20 154/81 H 90 L 10/17/16 07:59 10/17/16 08:20 10/17/16 07:59 10/17/16 08:20 10/17/16 07:59 Laboratory Results 10/17/16 05:00 10/17/16 05:00 10/16/16 10/17/16 10/18/16 05:59 05:59 05:59 Intake Total 245 1490 Output Total 1250 1925 450 Balance -1005 -435 -450 PT 12.4 SEC (12.0-15.0) 10/16/16 07:41 INR 0.93 (0.83-1.16) 10/16/16 07:41 ICD10 Worksheet Patient Problems: Problems Problem Status Onset Choledocholithiasis Acute
[2016-10-17 18:20] LABS: POTASSIUM 4.6 mEq/L (3.5-5.2)
--- NOTE | 2016-10-17 19:19 | CPEKG ---
Heart Rate: 82 RR Interval: 732 P-R Interval: 124 QRSD Interval: 82 QT Interval: 388 QTC Interval: 453 P [place]: 45 QRS [place]: 27 T Wave [place]: 2 EKG Severity - BORDERLINE ECG - EKG Impression: SINUS RHYTHM EKG Impression: BORDERLINE INFERIOR Q WAVES EKG Impression: BORDERLINE R WAVE PROGRESSION, ANTERIOR LEADS Electronically Signed By: Wilber Morin 18-Oct-2016 07:46:54
--- NOTE | 2016-10-17 19:47 | HOSPPROG ---
Hospitalist Progress Note Assessment/Plan: # CAD - 2 lesions of LAD identified on cath and stented yesterday - pt without CP today TELE (personally reviewed and interpreted) remains sinus rhythm 60-80's - cont ASA, plavix and metoprolol # PEA arrest -ECHO during arrest with severe RH failure - but PE ruled out Repeat ECHO improved - cardiac catheterization with LAD lesions s/p stenting # Acute respiratory failure - presumed due to pulmonary edema CXR -significantly improved pulmonary edema oxygen saturations 97% on 1 L - IV lasix prn # Acute on chronic CHF due to diastolic dysfunction -IVF sepsis bolus tipped into CHF - decreased diuresis # Cholangitis s/p ERCP with stent -HIDA with good GB visualization - no cholecystostomy tube -NPO for lap griffin tomorrow - cont IV abx # Septic shock - clinically improved -weaned off Levophed- BCX NGTD -cont empiric IV meropenem * GABE - creatinine 1.0 - resolved - cont to follow * Obesity BMI 39 * Below the knee DVT - tiny on serial US - exam stable # proph - hold lovenox for OR tomorrow # dispo - > 2MN as requiring ongoing monitoring and diagnostics post arrest I have discussed the case with RN - on schedule for lap griffin tomorrow hold lovenox Subjective: denies CP Objective: Vital Signs Temp Pulse Resp BP Pulse Ox 36.8 C 71 20 158/88 H 99 10/17/16 16:00 10/17/16 16:00 10/17/16 16:00 10/17/16 16:00 10/17/16 16:00 Laboratory Results 10/17/16 05:00 10/17/16 17:41 10/16/16 10/17/16 10/18/16 05:59 05:59 05:59 Intake Total 245 1490 100 Output Total 1250 1925 1250 Balance -1005 435 -1150 PT 12.4 SEC (12.0-15.0) 10/16/16 07:41 INR 0.93 (0.83-1.16) 10/16/16 07:41 - Physical Exam Constitutional: obese Eyes: anicteric sclera Ears, Nose, Mouth, Throat: moist mucous membranes Cardiovascular: regular rate and rhythym Respiratory: no respiratory distress, No inspiratory crackles Gastrointestinal: normoactive bowel sounds Genitourinary: no bladder fullness Skin: warm, normal color Musculoskeletal: No asymmetric calves Neurologic: AAOx3 Psychiatric: interacting appropriately Lymph, Heme, Immunologic: no cervical LAD ICD10 Worksheet Patient Problems: Problems Problem Status Onset Choledocholithiasis Acute
[2016-10-17] MEDS: ONDANSETRON 4 MG/2 ML VIAL IVP PRN (19:59)
[2016-10-17 23:23] LABS: HEMATOCRIT 24.7 % (38.0-47.0); HEMOGLOBIN 8.2 g/dL (12.6-16.3)
[2016-10-17] MEDS ORDERED: PANTOPRAZOLE SODIUM 80 MG in NS 100 ML IV ONE (23:50)
--- NOTE | 2016-10-17 23:56 | HOSPPROG ---
Hospitalist Progress Note Assessment/Plan: S: Called by RN for bloody stool, hypotension. Had episode of pallor earlier, associated with nausea no emesis Chart reviewed - complicated course. Admitted with cholangitis, s/p ERCP with stent, subsequent code blue with RV failure and pulmonary edema, successfully resuscitated. S/p PCI to LAD yesterday, now on asa/plavix. Plan cholecystectomy tomorrow. O: BP 90/50 (much lower) HR 85 (on metop) pale RRR, no MRG abd soft, no TTP Labs: stat hgb = 8.2 (down from 10.8) INR nl yesterday, plts normal A: 66F with acute GIB, hypotension, LAD stent yesterday. P: - transfer to SDU - discussed with Dr Taylor - plan EGD tomorrow am - will likely need EGD prior to cholecystectomy tomorrow - transfuse 2U PRBC given hypotension - caution needed given recent code blue in setting of fluid resuscitation - protonix gtt - high risk of holding asa/plavix with LAD stent yesterday 35 minutes bedside/floor cc time Objective: Vital Signs Temp Pulse Resp BP Pulse Ox 36.8 C 88 20 98/56 L 99 10/17/16 22:57 10/17/16 22:57 10/17/16 22:57 10/17/16 22:57 10/17/16 22:57 Laboratory Results 10/17/16 23:10 10/17/16 17:41 10/16/16 10/17/16 10/18/16 05:59 05:59 05:59 Intake Total 245 1490 100 Output Total 1250 1925 1250 Balance -1005 -435 -1150 PT 12.4 SEC (12.0-15.0) 10/16/16 07:41 INR 0.93 (0.83-1.16) 10/16/16 07:41 ICD10 Worksheet Patient Problems: Problems Problem Status Onset Choledocholithiasis Acute
[2016-10-18] MEDS: PANTOPRAZOLE SODIUM 80 MG in NS 100 ML IV SCH ×3 (00:18→19:41)
[2016-10-18 05:57] LABS: HEMATOCRIT 28.6 % (38.0-47.0); HEMOGLOBIN 9.5 g/dL (12.6-16.3)
[2016-10-18 06:12] LABS: ANION GAP 6 mEq/L (8-16); CALCIUM 7.7 mg/dL (8.5-10.4); CARBON DIOXIDE 26 mEq/l (22-31); CHLORIDE 108 mEq/L (97-110); CREATININE 1.3 mg/dL (0.6-1.0); GLOMERULAR FILTRATION RATE 41; GLUCOSE 105 mg/dL (70-100); POTASSIUM 4.9 mEq/L (3.5-5.2); SODIUM 140 mEq/L (134-144)
[2016-10-18 06:16] LABS: HEMATOCRIT 29.1 % (38.0-47.0); HEMOGLOBIN 9.5 g/dL (12.6-16.3); MEAN CELL HEMOGLOBIN 29.5 pg (27.9-34.1); MEAN CELL HEMOGLOBIN CONCENTR. 32.6 g/dL (32.4-36.7); MEAN CELL VOLUME 90.4 fL (81.5-99.8); RED BLOOD CELL COUNT 3.22 10^6/uL (4.18-5.33); RED CELL DISTRIBUTION WIDTH 14.9 % (11.5-15.2)
[2016-10-18] MEDS ORDERED: SUCCINYLCHOLINE CHLORIDE*ANESTHESIA ONLY*200 MG/10 ML SYR IVP ONE (08:07)
[2016-10-18] MEDS ORDERED: ROCURONIUM 50 MG/5 ML VIAL ONE (08:07)
[2016-10-18] MEDS ORDERED: LIDOCAINE 2% 5 ML SDV ONE (08:07)
[2016-10-18] MEDS ORDERED: PROPOFOL 200 MG/20 ML VIAL ONE (08:08)
[2016-10-18] MEDS ORDERED: PHENYLEPHRINE HCL 100 MCG/ML SYR ONE ×2 (08:21)
[2016-10-18] MEDS ORDERED: SUGAMMADEX SODIUM 200 MG/2 ML VIAL IVP ONE (08:22)
--- NOTE | 2016-10-18 08:55 | POSTOPPROG ---
Post Op Note Date of Operation: 10/18/16 Surgeon: Rory Taylor Anesthesia: GET(General Endotracheal) Pre-op Diagnosis: GI bleed Post-op Diagnosis: gastric ulcer Indication: GI bleed Procedure: EGD with gold probe Findings: + ulcer s/p gold probe Inf/Abcess present in the surg proc area at time of surgery?: No
[2016-10-18] MEDS ORDERED: NS 500 ML IV SCH (09:00)
[2016-10-18] MEDS ORDERED: NALOXONE HCL 0.4 MG/ML INJ IVP PRN (09:05)
--- NOTE | 2016-10-18 09:05 | PDANEPAE ---
ANE History of Present Illness gi bleed ANE Past Medical History - Cardiovascular History Hx Hypertension: No Hx Arrhythmias: Yes Hx Chest Pain: No Hx Coronary Artery / Peripheral Vascular Disease: Yes Hx CHF / Valvular Disease: No Hx Palpitations: No - Pulmonary History Hx COPD: No Hx Asthma/Reactive Airway Disease: No Hx Recent Upper Respiratory Infection: No Hx Oxygen in Use at Home: No Hx Sleep Apnea: No Sleep Apnea Screening Result - Last Documented: Negative - Endocrine History Hx Diabetes: No Hypothyroid: No Hyperthyroid: No Obesity: yes - GI History Gastrointestinal History Comment: gi bleed - Chronic Pain History Chronic Pain: No ANE Review of Systems - Exercise capacity METS (RN): 2 METS ANE Patient History - Allergies Allergies/Adverse Reactions: Penicillins Allergy (Verified 10/08/16 16:04) Other-Enter Comments - Home Medications Home Medications: NK [No Known Home Meds] 10/08/16 [Last Taken Unknown] - NPO status NPO Since - Liquids (Date): 10/08/16 NPO Since - Liquids (Time): 11:59 NPO Since - Solids (Date): 10/08/16 NPO Since - Solids (Time): 22:00 - Anes Hx Anes Hx: no prior problems - Smoking Hx Smoking Status: Never smoked - Alcohol Use Alcohol Use: Rarely ANE Labs/Vital Signs - Labs Result Diagrams: 10/18/16 05:45 10/18/16 05:45 - Vital Signs Blood Pressure: 105/59 Heart Rate: 68 Respiratory Rate: 19 O2 Sat (%): 98 Height: 162.56 cm Weight: 96.3 kg ANE Physical Exam - Airway Mallampati Score: Class 2 Mouth exam: normal dental/mouth exam - Pulmonary Pulmonary: no respiratory distress - Cardiovascular Cardiovascular: regular rate and rhythym - ASA Status ASA Status: III ANE Anesthesia Plan Anesthesia Plan: general endotracheal anesthesia
--- NOTE | 2016-10-18 09:06 | POSTANESTH ---
Post Anesthetic Evaluation Cardiovascular Status: Normal, Stable Respiratory Status: Normal, Stable Level of Consciousness/Mental Status: Can Participate in Eval Pain Control: Adequate, Prn Tx Ordered Nausea/Vomiting Control: Adequate, Prn Tx Ordered Complications Possibly Related to Anesthesia: None Noted
--- NOTE | 2016-10-18 09:10 | SOAPPROG ---
VENKATESH Progress Note Assessment/Plan: Assessment/Plan: 66 Y F multiple medical problems, s/p coronary stents, + cholelithiasis. No s/u UGIB. Lap griffin postponed due to overnight events. Will continue to follow. 10/18/16 09:08 Objective: Vital Signs Temp Pulse Resp BP Pulse Ox 36.7 C 68 19 105/59 L 98 10/18/16 04:00 10/18/16 09:05 10/18/16 09:05 10/18/16 09:05 10/18/16 09:05 Laboratory Results 10/18/16 05:45 10/18/16 05:45 10/17/16 10/18/16 10/19/16 05:59 05:59 05:59 Intake Total 1490 1069 Output Total 1925 1250 Balance -435 -181 PT 12.4 SEC (12.0-15.0) 10/16/16 07:41 INR 0.93 (0.83-1.16) 10/16/16 07:41 ICD10 Worksheet Patient Problems: Problems Problem Status Onset Choledocholithiasis Acute
--- NOTE | 2016-10-18 09:15 | SOAPPROG ---
SOAP Progress Note Assessment/Plan: Assessment: Plan: 10/18/16 09:00 GI note S/p EGD Gold probe. Esophagus, duodenal bulb, and second portion of the duodenum was normal in appearance. In the stomach, a large amount of blood clots was visualized with obscured most of the visualization of the fundus and proximal/mid gastric body. The antrum was normal in appearance. In the mid gastric body a 1cm ulcer was seen with oozing noted. No visible vessel was seen. Gold probe was utilized with complete cessation of the oozing. Rec: 1. PPI infusion 2. NPO 3. Recommend repeat EGD but can consider as outpatient in 6 weeks if no signs of active GI bleed. 4. Would consider resuming Plavix (benefits> risks?) Objective: Vital Signs Temp Pulse Resp BP Pulse Ox 36.7 C 68 19 105/59 L 98 10/18/16 04:00 10/18/16 06:00 10/18/16 06:00 10/18/16 06:00 10/18/16 06:00 Laboratory Results 10/18/16 05:45 10/18/16 05:45 10/17/16 10/18/16 10/19/16 05:59 05:59 05:59 Intake Total 1490 1069 Output Total 1925 1250 Balance -435 -181 PT 12.4 SEC (12.0-15.0) 10/16/16 07:41 INR 0.93 (0.83-1.16) 10/16/16 07:41 ICD10 Worksheet Patient Problems: Problems Problem Status Onset Choledocholithiasis Acute
[2016-10-18] MEDS: FAMOTIDINE 20 MG TAB PO SCH (10:45)
[2016-10-18] MEDS: METOPROLOL TARTRATE 25 MG TAB PO SCH ×2 (10:45→19:41)
[2016-10-18] MEDS: MEROPENEM 1 GM in NS 100 ML IV SCH ×2 (11:51→19:41)
[2016-10-18 14:05] LABS: HEMATOCRIT 26.9 % (38.0-47.0); HEMOGLOBIN 9.1 g/dL (12.6-16.3)
--- NOTE | 2016-10-18 14:15 | PDCARPN ---
Cardiology Progress Note Chief Complaint: UGIB/ recent PCI to LAD Assessment/Plan: Assessment: 66 y/o female p/w abd pain. Has known gall stones and pending need for cholecystectomy, but after bile duct stenting during ERCP on 10/09, she had hypoxic/hypotensive arrest. Resuscitated with CPR/intubation and support/ extubated 10/12. Noted to have elevated trop, and proceeded to angiography to better assess cardiovascular risk pre surgery. Found to have obstructive disease in LAD s/p PTCA/stenting on 10/16/16. Noted to have bloody stool and hypotension yesterday. #. cardiac arrest with elevated trop: proceeded to [facility] with PCI to LAD (2 stents ) #. UGIB: bleeding gastric ulcer treated by GI today #. Gallbladder disease: Will need elective cholecystectomy once more stable would prefer surgery on Plavix/hold ASA #. Hypoxic respiratory failure: Improved #. Hypotension requiring pressors: This has resolved appears to be tolerating Metoprolol #. GABE/CKD #. Obesity: BMI 36 Plan: Spoke with Dr. Mcclelland who recommends holding ASA but giving Plavix. 10/18/16 15:24 Subjective: Pt denies any pain. Has been minimally ambulatory. Objective: Vital Signs (8 Hrs) Temp Pulse Resp BP Pulse Ox 10/18/16 11:57 98.1 F 83 18 108/62 98 10/18/16 10:45 82 117/68 10/18/16 09:30 16 117/71 94 10/18/16 09:26 15 93 10/18/16 09:25 16 124/72 H 92 10/18/16 09:21 17 93 10/18/16 09:20 16 114/76 94 10/18/16 09:16 18 95 10/18/16 09:15 17 106/75 95 10/18/16 09:12 97.7 F 88 16 116/73 94 10/18/16 09:11 15 95 10/18/16 09:10 18 116/73 93 10/18/16 09:06 19 93 10/18/16 09:05 68 19 105/59 L 98 10/18/16 09:05 18 111/74 95 10/18/16 09:02 18 116/73 96 10/18/16 09:01 30 H 95 Intake/Output (24 Hrs) 10/17/16 10/18/16 10/19/16 05:59 05:59 05:59 Intake Total 1490 1069 Output Total 1925 1250 Balance -435 -181 Intake: Oral (ml) 1170 0 IV Infused (ml) 320 279 Meropenem 1 gm In Ns 100 120 200 ml @ 120 mls/hr IV Q12H PENDING SALE TO [facility] Rx#:[id number] Ns 1,000 ml @ 75 mls/hr 200 IV CONT KATHERYN Rx#: [id number] Pantoprazole Sodium 80 mg 79 In Ns 100 ml @ 10 mls/hr IV Q10H PENDING SALE TO [facility] Rx#: [id number] Packed Red Blood Cells ( 790 ml) Output: Urine (ml) 1925 1250 Bedpan 300 Toilet 1625 1250 Other: Weight 96.3 kg 96.3 kg Number of Voids Bedside Commode 1 1 Toilet 1 Number of Stools Bedside Commode 1 Toilet 1 1 Result Diagrams: 10/18/16 14:00 10/18/16 05:45 Telemetry: SR Echocardiogram: normal LVEF - Physical Exam Constitutional: no apparent distress Eyes: pale conjunctiva Cardiovascular: regular rate and rhythm, no murmurs Respiratory: clear to auscultate bilat Gastrointestinal: normoactive bowel sounds Skin: no rashes Neurologic: AAOx3 Psychiatric: cooperative, interactive ICD10 Worksheet Patient Problems: Problems Problem Status Onset Choledocholithiasis Acute
--- NOTE | 2016-10-18 15:45 | GPN ---
[f rep st] PROCEDURE NOTE DATE OF PROCEDURE: 10/18/2016 PROCEDURE PERFORMED: Esophagogastroduodenoscopy with Gold Probe with cessation of bleeding. INDICATION: The patient is a 66-year-old female who presents with a GI bleed. She presents for further evaluation. CONSENT: Risks, benefits, and alternatives of the procedure were discussed in great detail with the patient. Risks of infection, bleeding, perforation, and sedation were discussed. All questions answered and informed consent obtained. MEDICATIONS: General anesthesia. Please see anesthesia record for details. ESTIMATED BLOOD LOSS: Insignificant. ESOPHAGOGASTRODUODENOSCOPY EXAMINATION: An Olympus upper endoscope as well as therapeutic endoscope was entered introduced into the esophagus and advanced to the second portion of the duodenum. The therapeutic endoscope was utilized after the regular upper endoscope got clogged with multiple clots with suctioning. The esophagus was normal. No esophageal ulcer or esophageal varices noted. The stomach was entered and closely examined. A large amount of black clots were seen in the fundus and most of the body of the stomach. This was aggressively flushed and suctioned, which clogged the scope multiple times. Due to this, a therapeutic scope was utilized. However, a large amount the fundus and gastric body was not visualized well. The antrum of the stomach was normal. The duodenal bulb and second portion duodenum were normal. After extensive examination, a 1.5 cm ulcer was seen in the mid gastric body. No visible vessel was noted, but it did appear to be oozing at the edges of the ulcer. Gold Probe was utilized with complete cessation of bleeding. IMPRESSION: 1. Gastric ulcer status post Gold Probe with cessation of bleeding. 2. Incomplete visualization of the stomach due to large amount of clots and blood. RECOMMENDATIONS: 1. Continue PPI infusion. 2. Monitor H and H. 3. Would continue Plavix. 4. Will keep n.p.o. 5. Will need repeat EGD but will consider it as an outpatient if no signs of active GI bleeding. /[id number]/MODL MTDD
[2016-10-18] MEDS: CLOPIDOGREL BISULFATE 75 MG TAB PO SCH (16:57)
[2016-10-18] MEDS: ASPIRIN EC 81 MG TAB PO SCH (16:58)
--- NOTE | 2016-10-18 17:06 | HOSPPROG ---
Hospitalist Progress Note Assessment/Plan: assessment: 66-year-old female presents with sepsis in the setting of ascending cholangitis complicated by PEA arrest, shock, acute upper gastrointestinal hemorrhage and blood loss anemia Plan: # UGIB - 2/2 bleeding gastric ulcer, therapeutic endo today - ppi gtt - holding anti-platelet Rx today, plan to restart plavix tomorrow # acute blood loss anemia - 2/2 UGIB w/ decline in Hgb and requiring PRBC - monitor Hgb # CAD - 2 lesions of LAD identified on cath and stented, d/w Dr. John who has communicated w/ Dr. Mcclelland, recommends restarting plavix single-agent RANDI - cont metoprolol - EKG w/ TWI inferiorly and poor R wave V2-3 w/o ischemia (personally interpreted) # PEA arrest - ECHO during arrest with severe RH failur, PE ruled out - Repeat ECHO improved # Acute hypoxic respiratory failure - evidenced by SpO2 84% w/ objective tachypnea, respiratory distress, requiring intubation, presumed due to pulmonary edema - IV lasix prn # Acute on chronic diastolic CHF, present on CXR, 2/2 IVF w/ septic shock, s/p diuresis # Cholangitis s/p ERCP with stent - HIDA with good GB visualization - no cholecystostomy tube - lap griffin on hold until above stabilized, anticipate 10/19 vs. 10/20 - cont IV abx # Septic shock, POA - clinically improved - weaned off Levophed -cont empiric IV meropenem # GABE - worsening o/n w/ GI losses, cont monitor output and Cr # Obesity BMI 36 # Below the knee DVT, POA - tiny on serial US - exam stable # proph - hold given bleed # diet - regular, hold in AM in case surgery # code - full # dispo - remains critically ill w/ recent bleed High medical complexity patient, high risk of worsening morbidity and mortality 2/2 conditions above Subjective: patient reports no bloody bowel movements since endoscopy Objective: Vital Signs Temp Pulse Resp BP Pulse Ox 36.7 C 76 20 114/71 100 10/18/16 16:00 10/18/16 16:00 10/18/16 16:00 10/18/16 16:00 10/18/16 16:00 Laboratory Results 10/18/16 14:00 10/18/16 05:45 10/17/16 10/18/16 10/19/16 05:59 05:59 05:59 Intake Total 1490 1069 Output Total 0130 1250 Balance -435 -181 PT 12.4 SEC (12.0-15.0) 10/16/16 07:41 INR 0.93 (0.83-1.16) 10/16/16 07:41 - Physical Exam Constitutional: no apparent distress, not in pain, chronically ill appearing, No uncomfortable Cardiovascular: systolic murmur ( 2/6 at the sternum and apex), edema ( trace bilateral lower extremity), No irregularly irregular, No tachycardia Respiratory: no respiratory distress, no rales or rhonchi, clear to auscultation Gastrointestinal: normoactive bowel sounds, soft, non-tender abdomen ( right upper quadrant or mid epigastric), no palpable masses, No distension Neurologic: AAOx3, sensation intact bilaterally, weakness ( motor strength 5/5 bilateral lower extremity) Psychiatric: interacting appropriately, not anxious, not encephalopathic, thought process linear ICD10 Worksheet Patient Problems: Problems Problem Status Onset Choledocholithiasis Acute
[2016-10-19] MEDS ORDERED: PANTOPRAZOLE SODIUM 80 MG in NS 100 ML IV SCH (00:30)
[2016-10-19 03:53] LABS: % IMMATURE GRANULYOCYTES 1.7 % (0.0-1.1); ABSOLUTE IMMATURE GRANULOCYTES 0.16 10^3/uL (0.00-0.10); ADD DIFF? NO; ADD MORPH? NO; ADD SCAN? NO; ATYPICAL LYMPHOCYTE FLAG 40 (0-99); FRAGMENT RBC FLAG 0 (0-99); HEMATOCRIT 27.2 % (38.0-47.0); HEMOGLOBIN 8.9 g/dL (12.6-16.3); LEFT SHIFT FLG 10 (0-99); LIPEMIA HEMOLYSIS FLAG 80 (0-99); MEAN CELL HEMOGLOBIN 29.4 pg (27.9-34.1); MEAN CELL HEMOGLOBIN CONCENTR. 32.7 g/dL (32.4-36.7); MEAN CELL VOLUME 89.8 fL (81.5-99.8); MEAN PLATELET VOLUME 9.2 fL (8.7-11.7); PLATELET CLUMPS FLAG 0 (0-99); PLATELET COUNT 269 10^3/uL (150-400); RED BLOOD CELL COUNT 3.03 10^6/uL (4.18-5.33); RED CELL DISTRIBUTION WIDTH 15.7 % (11.5-15.2)
[2016-10-19 04:29] LABS: ANION GAP 6 mEq/L (8-16); CALCIUM 8.2 mg/dL (8.5-10.4); CARBON DIOXIDE 26 mEq/l (22-31); CHLORIDE 110 mEq/L (97-110); CREATININE 1.1 mg/dL (0.6-1.0); GLOMERULAR FILTRATION RATE 50; GLUCOSE 85 mg/dL (70-100); POTASSIUM 4.4 mEq/L (3.5-5.2); SODIUM 142 mEq/L (134-144)
[2016-10-19] MEDS: MEROPENEM 1 GM in NS 100 ML IV SCH ×2 (08:53→20:18)
[2016-10-19] MEDS: METOPROLOL TARTRATE 25 MG TAB PO SCH ×2 (08:53→20:18)
[2016-10-19] MEDS: PANTOPRAZOLE SODIUM 80 MG in NS 100 ML IV SCH ×3 (08:53→21:26)
[2016-10-19] MEDS: CLOPIDOGREL BISULFATE 75 MG TAB PO SCH (08:53)
--- NOTE | 2016-10-19 10:47 | SOAPPROG ---
[facility] Progress Note Assessment/Plan: Assessment: 1. Status post cardiac arrest with LAD PCI. 2. Dual antiplatelet therapy complicated by gastric ulcer and 2 unit GI bleed. 3. Acute cholecystitis needing cholecystectomy today. Procedures: 10/11/2016: Cardiac arrest with ACLS. Echocardiogram. 10/16/2016 cardiac catheterization with PCI and stenting of the LAD. Discussion: The patient received 2 short large drug-eluting stents. She was initially treated with dual antiplatelet therapy. She did receive Plavix yesterday. She likely has sufficient dual antiplatelet therapy to get her through cholecystectomy today with minimal risk of stent thrombosis. Her overall left ventricular function is preserved. No contraindications to proceeding with cholecystectomy today. Recommend resumption of aspirin on top of Plavix as soon as reasonable. Continue aggressive secondary prevention. Needs statin prior to discharge. Discussed with patient, Dr. John and family. 10/19/16 10:49 10/19/16 10:50 Subjective: No chest pain, shortness of breath, PND, orthopnea. No syncope or near syncope. Feeling overall improved. Awaiting cholecystectomy today. Asked by Dr. John for operative clearance. Objective: Medications Generic Name Dose Route Start Last Admin Trade Name Freq PRN Reason Stop Dose Admin Clopidogrel Bisulfate 75 mg 10/17/16 09:00 10/19/16 08:53 Plavix PO 04/15/17 08:59 75 mg DAILY [facility] Enoxaparin Sodium 40 mg 10/17/16 09:00 10/17/16 08:22 Lovenox SC 04/15/17 08:59 40 mg DAILY [facility] Metoprolol Tartrate 25 mg 10/15/16 09:00 10/19/16 08:53 Lopressor PO 04/13/17 08:59 25 mg BID [facility] Vital Signs Temp Pulse Resp BP Pulse Ox 36.7 C 71 19 115/67 98 10/19/16 08:29 10/19/16 08:29 10/19/16 08:29 10/19/16 08:29 10/19/16 08:29 Laboratory Results 10/19/16 03:44 10/19/16 03:44 10/18/16 10/19/16 10/20/16 05:59 05:59 05:59 Intake Total 1069 700 Output Total 1250 Balance -181 700 PT 12.4 SEC (12.0-15.0) 10/16/16 07:41 INR 0.93 (0.83-1.16) 10/16/16 07:41 Physical Exam - Physical Exam General Appearance: no apparent distress EENT: PERRL/EOMI Neck: non-tender, full range of motion Respiratory: lungs clear Cardiac/Chest: normal peripheral pulses, regular rate, rhythm, No gallop Abdomen: normal bowel sounds, non-tender Back: Normal inspection ICD10 Worksheet Patient Problems: Problems Problem Status Onset Choledocholithiasis Acute Review of Systems - Review of Systems Constitutional: denies: chills, fever EENTM: no symptoms reported Respiratory: no symptoms reported Cardiac: no symptoms reported Gastrointestinal/Abdominal: no symptoms reported Genitourinary: no symptoms Musculoskelatal: no symptoms
--- NOTE | 2016-10-19 11:38 | GCON ---
[f rep st] CONSULTATION PULMONARY/CRITICAL CARE CONSULTATION. DATE OF CONSULTATION: 10/18/2016 REFERRING PHYSICIAN: Wilber Owens MD REASON FOR REFERRAL: Evaluation and management of anemia. HISTORY: Ms Collins is a 66-year-old woman who was admitted to the hospital 10 days ago with abdo tian pain. She was found to have intrahepatic ductal dilatation. An ERCP was performed, and no st one was found, but there was some pus coming from the gallbladder. Shortly after the procedure, the patient had a cardiac arrest. She was intubated and responded to epinephrine and bicarb. Echocard iogram showed signs of RV overload. A CT scan of the chest did not reveal any PEs. She was seen by Cardiology and had a coronary angiogram on 10/15 which demonstrated 2 lesions, 80% and 90%, of the L AD. These were stented on 10/16. On 10/17 the patient had bloody stool and hypotension. An EGD reve aled a bleeding gastric ulcer which was treated with a heater probe. She was transfused 2 units of packed red blood cells, and her hemoglobin fell from 11 to 9. She has had no more bleeding clinical ly. She denies any pain or shortness of breath. PAST MEDICAL HISTORY: Gallstones. MEDICATIONS: None at the time of admission. Here in the hospital she is on: 1. Plavix. 2. Enoxaparin. 3. Meropenem. 4. Metoprolol. 5. Morphine. 6. Pantoprazole. 7. Temazepam. ALLERGIES: Penicillin. SOCIAL HISTORY: The patient denies alcohol tobacco or drug use. FAMILY HISTORY: Unremarkable. REVIEW OF SYSTEMS: A 10-point review of systems adds nothing to the history of present illness. PHYSICAL EXAMINATION: GENERAL: The patient is awake, alert, and in no acute distress. VITAL SIGNS : Blood pressure is 108/62 with a heart rate of 83. She is afebrile. Oxygen saturations are 98% on 1 L. HEENT: Normocephalic and atraumatic. No icterus. NECK: No JVD. Trachea is midline. CHES T: Clear to auscultation. CARDIAC: Regular rate and rhythm without murmur. ABDOMEN: Soft and no ntender. Bowel sounds are present. EXTREMITIES: No clubbing, cyanosis, or edema. NEURO: The pat ient is awake, alert, and oriented. She has no gross motor sensory of motor deficits. LABORATORY: A hemoglobin is 8.9, down slightly from 9.5 yesterday. A creatinine is 1.1 with a BUN of 45. A chest x-ray from 10/14 shows improved interstitial edema compared to 2 days earlier. Image s reviewed. ASSESSMENT: 1. Acute anemia. This is due to acute gastrointestinal bleed. The patient has responded to transf usion with packed red blood cells, and her hemoglobin has declined just slightly over the last 24 ho urs with no more clinical evidence of bleeding. 2. Coronary artery disease status post stenting. The patient is on aspirin and Plavix. These have been held given the GI bleed, but the patient is at high risk for occlusion of her stent if these a re held very long. I discussed with Dr. Mcclelland, and he feels the most important medication will b e Plavix. This would also be less likely to contribute to her gastric ulcer than aspirin. 3. Cholecystitis. This is likely due to a passed stone, and has been both an acute and chronic pro blem. Cholecystectomy is planned, but the timing will depend on when it is safe from the cardiac st andpoint and once her bleeding has stabilized. RECOMMENDATIONS: 1. Follow hemoglobin. 2. Continue Plavix. Aspirin will be held temporarily. 3. Will discuss with Dr. Alcantar the timing of cholecystectomy. /[id number]/MODL
[2016-10-19] MEDS ORDERED: D5W 1/2 NS 1,000 ML IV SCH (12:15)
[2016-10-19] MEDS ORDERED: BUPIVACAINE 0.5% 30 ML SDV ONE (12:36)
[2016-10-19] MEDS ORDERED: ceFAZolin 1 GM/5 ML SYR ONE (12:37)
[2016-10-19] MEDS ORDERED: HEPARIN 1000 UNIT/1 ML MDV ONE ×2 (12:37→15:53)
[2016-10-19] MEDS ORDERED: MIDAZOLAM 2 MG/2 ML VIAL IVP ONE (14:27)
--- NOTE | 2016-10-19 14:27 | PDANEPAE ---
ANE History of Present Illness here for lap griffin. Pt is s/p cardiac arrest with PCI to LAD on DAPT. Cleared by cards for surgery. ANE Past Medical History - Cardiovascular History Hx Hypertension: No Hx Arrhythmias: Yes Hx Chest Pain: No Hx Coronary Artery / Peripheral Vascular Disease: Yes Hx CHF / Valvular Disease: No Hx Palpitations: No - Pulmonary History Hx COPD: No Hx Asthma/Reactive Airway Disease: No Hx Recent Upper Respiratory Infection: No Hx Oxygen in Use at Home: No Hx Sleep Apnea: No Sleep Apnea Screening Result - Last Documented: Negative - Endocrine History Hx Diabetes: No Hypothyroid: No Hyperthyroid: No Obesity: yes - GI History Gastrointestinal History Comment: gi bleed - Chronic Pain History Chronic Pain: No - Surgical History Prior Surgeries: ercp, cardiac cath, ANE Review of Systems - Exercise capacity Exercise capacity: <4 METS METS (RN): 2 METS ANE Patient History - Allergies Allergies/Adverse Reactions: Penicillins Allergy (Verified 10/08/16 16:04) Other-Enter Comments - Home Medications Home Medications: NK [No Known Home Meds] 10/08/16 [Last Taken Unknown] - NPO status NPO Since - Liquids (Date): 10/19/16 NPO Since - Liquids (Time): 00:00 NPO Since - Solids (Date): 10/19/16 NPO Since - Solids (Time): 00:00 - Smoking Hx Smoking Status: Never smoked - Alcohol Use Alcohol Use: Rarely ANE Labs/Vital Signs - Labs Result Diagrams: 10/19/16 03:44 10/19/16 03:44 - Vital Signs Blood Pressure: 121/73 Heart Rate: 72 Respiratory Rate: 18 O2 Sat (%): 95 Height: 162.56 cm Weight: 96.3 kg ANE Physical Exam - Airway Neck exam: FROM Mallampati Score: Class 3 Mouth exam: normal dental/mouth exam - Pulmonary Pulmonary: no respiratory distress - Cardiovascular Cardiovascular: regular rate and rhythym - ASA Status ASA Status: III ANE Anesthesia Plan Anesthesia Plan: general endotracheal anesthesia
[2016-10-19] MEDS ORDERED: fentaNYL 100 MCG/2 ML INJ ONE ×3 (14:34→17:18)
[2016-10-19] MEDS ORDERED: PROPOFOL/EMULSION 500 MG/50 ML BOTTLE IV ONE (14:36)
[2016-10-19] MEDS ORDERED: ESMOLOL HCL 100 MG/10 ML VIAL IV ONE ×2 (14:39)
--- NOTE | 2016-10-19 15:11 | HOSPPROG ---
Hospitalist Progress Note Assessment/Plan: assessment: 66-year-old female presents with sepsis in the setting of ascending cholangitis complicated by PEA arrest, shock, acute upper gastrointestinal hemorrhage and blood loss anemia Plan: # UGIB - 2/2 bleeding gastric ulcer, therapeutic endo and ppi gtt # acute blood loss anemia - 2/2 UGIB w/ decline in Hgb and requiring PRBC, may require 1u bennett-op depending on blood loss - monitor Hgb # CAD - 2 lesions of LAD identified on cath and stented, restarted on single- agent plavix and will add asa post-op when deemed safe from surgery - cont metoprolol # PEA arrest - ECHO during arrest with severe RH failure, PE ruled out - Repeat ECHO improved # Acute hypoxic respiratory failure - evidenced by SpO2 84% w/ objective tachypnea, respiratory distress, requiring intubation, presumed due to pulmonary edema - IV lasix prn # Acute on chronic diastolic CHF, present on CXR, 2/2 IVF w/ septic shock, s/p diuresis # Cholangitis s/p ERCP with stent - HIDA with good GB visualization - no cholecystostomy tube - cont IV abx until after CCY - d/w Dr. Alcantar today, patient is medically optimized, no longer bleeding, and urinating well, recommend proceeding to surgery # Septic shock, POA - clinically improved - weaned off Levophed - cont empiric IV meropenem, will d/w Dr. Alcantar when we can discontinue post-op # GABE - 2/2 hypovolemia, improving w/ IVF # Obesity BMI 36 # Below the knee DVT, POA - tiny on serial US - exam stable # proph - hold given bleed # diet - regular, hold in AM in case surgery # code - full # dispo - ADD uncertain Remains high medical complexity patient, high risk of worsening morbidity and mortality 2/2 conditions above Subjective: patient reports dark but nonmelanotic stool, urinating well, no chest pain Objective: Vital Signs Temp Pulse Resp BP Pulse Ox 37.0 C 72 18 121/73 H 95 10/19/16 13:56 10/19/16 14:27 10/19/16 14:27 10/19/16 14:27 10/19/16 14:27 Laboratory Results 10/19/16 03:44 10/19/16 03:44 10/18/16 10/19/16 10/20/16 05:59 05:59 05:59 Intake Total 1069 700 Output Total 1250 Balance -181 700 PT 12.4 SEC (12.0-15.0) 10/16/16 07:41 INR 0.93 (0.83-1.16) 10/16/16 07:41 - Physical Exam Constitutional: no apparent distress, appears nourished, not in pain, No uncomfortable Cardiovascular: systolic murmur ( 2/6 systolic murmur at the sternum and apex), No irregularly irregular, No tachycardia, No edema Respiratory: no respiratory distress, no rales or rhonchi, clear to auscultation Gastrointestinal: normoactive bowel sounds, soft, non-tender abdomen ( mid epigastric or right upper quadrant), no palpable masses, No distension Neurologic: AAOx3, No weakness, No facial droop Psychiatric: interacting appropriately, not anxious, not encephalopathic, thought process linear, other ( concentration 7/7) ICD10 Worksheet Patient Problems: Problems Problem Status Onset Choledocholithiasis Acute
[2016-10-19 15:12] LABS: ALBUMIN 2.6 g/dL (3.5-5.0); BILIRUBIN,TOTAL 0.7 mg/dL (0.1-1.4); BILIRUBIN-CONJUGATED 0.5 mg/dL (0.0-0.5); BILIRUBIN-UNCONJUGATED 0.2 mg/dL (0.0-1.1); TOTAL PROTEIN 5.1 g/dL (6.3-8.2)
[2016-10-19] MEDS ORDERED: HYDROmorphONE/DILAUDID 1 MG/ML SYR IVP PRN ×2 (16:00→17:35)
[2016-10-19] MEDS ORDERED: NALOXONE HCL 0.4 MG/ML INJ IVP PRN (16:00)
[2016-10-19] MEDS ORDERED: ADENOSINE 6 MG/2 ML VIAL ONE ×2 (16:23→16:25)
[2016-10-19] MEDS ORDERED: SUGAMMADEX SODIUM 200 MG/2 ML VIAL IVP ONE (16:46)
[2016-10-19] MEDS ORDERED: PHENYLEPHRINE HCL 100 MCG/ML SYR ONE (16:48)
[2016-10-19] MEDS ORDERED: HYDROmorphONE/DILAUDID 1 MG/ML SYR ONE (17:18)
[2016-10-19] MEDS: fentaNYL 100 MCG/2 ML INJ IVP PRN ×2 (17:20→17:42)
--- NOTE | 2016-10-19 17:25 | POSTOPPROG ---
Post Op Note Date of Operation: 10/19/16 Surgeon: Yoni Alcantar Anesthesiologist: NAZANIN Anesthesia: GET(General Endotracheal) Pre-op Diagnosis: SUBACUTE CHOLECYSTITIS Post-op Diagnosis: SAME Indication: RECENT CHOLANGITIS Procedure: LAP CHOLY Findings: SEVERELY INFLAMED CONTRACTED GALLBLADDER WITH LARGE COMMON DUCT Inf/Abcess present in the surg proc area at time of surgery?: Yes Depth: Organ Space EBL: 50-100 Complications: NONE Specimen(s): GALLBLADDER
[2016-10-19] MEDS ORDERED: ONDANSETRON 4 MG/2 ML VIAL ONE (17:40)
--- NOTE | 2016-10-19 17:40 | SOAPPROG ---
[facility] Progress Note Assessment/Plan: Assessment: 66-year-old female with acute cholecystitis now status post cardiac stents Still needs cholecystectomy and preferably on this admission She will require Plavix for some time so not much point in waiting for cholecystectomy Plan: Lap choly this admission/will discuss with the patient's and cardiology in a.m. 10/16/16 22:37 10/19/16 17:39 MEDICINE AND CARDIOLOGY A READY FOR US TO DO A LAP CHOLY/SHE IS QUITE STABLE EVEN AFTER HER GI BLEED LAST NIGHT/IS NONICTERIC/STILL HAVING SOME RIGHT UPPER QUADRANT PAIN WITH EATING/NO FURTHER GI BLEEDING/ PLAN IS TO PROCEED LAP CHOLY TODAY/RISKS AND OPTIONS FULLY DISCUSSED AND SHE WISHED TO PROCEED Objective: Vital Signs Temp Pulse Resp BP Pulse Ox 36.1 C 73 20 105/78 100 10/19/16 17:03 10/19/16 17:03 10/19/16 17:31 10/19/16 17:31 10/19/16 17:31 Laboratory Results 10/19/16 03:44 10/19/16 03:44 10/18/16 10/19/16 10/20/16 05:59 05:59 05:59 Intake Total 1069 700 700 Output Total 1250 20 Balance -181 700 680 PT 12.4 SEC (12.0-15.0) 10/16/16 07:41 INR 0.93 (0.83-1.16) 10/16/16 07:41 ICD10 Worksheet Patient Problems: Problems Problem Status Onset Choledocholithiasis Acute
[2016-10-19] MEDS: ONDANSETRON 4 MG/2 ML VIAL IVP PRN (17:41)
[2016-10-19] MEDS ORDERED: D5W 1/2 NS W/ 20 KCl/L 1,000 ML IV SCH (17:45)
[2016-10-19] MEDS: OXYCODONE/APAP 5/325 TAB PO PRN (20:18)
[2016-10-20] MEDS: OXYCODONE/APAP 5/325 TAB PO PRN ×3 (03:18→20:47)
[2016-10-20 05:34] LABS: % IMMATURE GRANULYOCYTES 0.9 % (0.0-1.1); ABSOLUTE IMMATURE GRANULOCYTES 0.09 10^3/uL (0.00-0.10); ADD DIFF? NO; ADD MORPH? NO; ADD SCAN? NO; ATYPICAL LYMPHOCYTE FLAG 20 (0-99); FRAGMENT RBC FLAG 0 (0-99); HEMOGLOBIN 7.9 g/dL (12.6-16.3); LEFT SHIFT FLG 10 (0-99); LIPEMIA HEMOLYSIS FLAG 80 (0-99); MEAN CELL HEMOGLOBIN 29.9 pg (27.9-34.1); MEAN CELL HEMOGLOBIN CONCENTR. 32.9 g/dL (32.4-36.7); MEAN CELL VOLUME 90.9 fL (81.5-99.8); MEAN PLATELET VOLUME 9.2 fL (8.7-11.7); PLATELET CLUMPS FLAG 0 (0-99); PLATELET COUNT 281 10^3/uL (150-400); RED BLOOD CELL COUNT 2.64 10^6/uL (4.18-5.33); RED CELL DISTRIBUTION WIDTH 14.9 % (11.5-15.2)
[2016-10-20 05:59] LABS: ALANINE AMINOTRANSFERASE 84 IU/L (9-52); ALBUMIN 2.4 g/dL (3.5-5.0); ALKALINE PHOSPHATASE 85 IU/L (38-126); AMYLASE 40 IU/L (30-110); ANION GAP 6 mEq/L (8-16); ASPARTATE AMINOTRANSFERASE 92 IU/L (14-46); BILIRUBIN,TOTAL 0.8 mg/dL (0.1-1.4); BILIRUBIN-CONJUGATED 0.4 mg/dL (0.0-0.5); BILIRUBIN-UNCONJUGATED 0.4 mg/dL (0.0-1.1); CALCIUM 8.2 mg/dL (8.5-10.4); CARBON DIOXIDE 24 mEq/l (22-31); CHLORIDE 109 mEq/L (97-110); GLOMERULAR FILTRATION RATE 56; GLUCOSE 123 mg/dL (70-100); POTASSIUM 4.7 mEq/L (3.5-5.2); SODIUM 139 mEq/L (134-144); TOTAL PROTEIN 4.9 g/dL (6.3-8.2)
[2016-10-20] MEDS: PANTOPRAZOLE SODIUM 80 MG in NS 100 ML IV SCH (06:29)
[2016-10-20] MEDS: MEROPENEM 1 GM in NS 100 ML IV SCH ×2 (07:49→18:34)
[2016-10-20] MEDS: ENOXAPARIN 40 MG/0.4 ML SYR SC SCH (08:11)
[2016-10-20] MEDS: CLOPIDOGREL BISULFATE 75 MG TAB PO SCH (08:12)
[2016-10-20] MEDS: METOPROLOL TARTRATE 25 MG TAB PO SCH ×2 (08:12→20:45)
--- NOTE | 2016-10-20 09:46 | GOP ---
[f rep st] OPERATIVE REPORT DATE OF OPERATION: 10/19/2016 SURGEON: Yoni Alcantar MD CROSSBAND LAYER: There was no process assistant. ANESTHESIOLOGIST: Dr. Allison. PREOPERATIVE DIAGNOSIS: Subacute cholecystitis. POSTOPERATIVE DIAGNOSIS: Subacute cholecystitis. PROCEDURE PERFORMED: Laparoscopic cholecystectomy. FINDINGS: The patient was found have severe subacute cholecystitis. The gallbladder was completely obscured from view by omental adhesions. The gallbladder was contracted down and thickened. The c ommon duct was quite large. The cystic duct was very short and thickened. The cystic artery was no t individually identified because of inflammatory reactions in the area. ESTIMATED BLOOD LOSS: Blood loss during the procedure was less than 100 cc. DESCRIPTION OF PROCEDURE: The patient taken to the operating room, where she received satisfactory general endotracheal anesthesia by Dr. Allison, placed in the supine position, prepped and draped in the usual sterile fashion. A periumbilical incision was made. A Veress needle was inserted. Pneum operitoneum was established. A trocar was introduced. Laparoscope introduced. Good visualization was obtained. Three other trocars were placed in the upper abdomen under direct vision. The gallbl adder was exposed by taking down adhesions to the gallbladder from the adjacent omentum and dissecti ng the duodenum away from the gallbladder as well. This was done with a Harmonic Scalpel because of her use of Plavix and dissection was relatively bloodless considering her anticoagulation status. The gallbladder was elevated up. It was markedly contracted. The cystic triangle was dissected. I t was significantly inflamed. The common bile duct was well visualized. A clear view was obtained dissecting the gallbladder off the bed from the hepatic fossa and the cystic artery and cystic duct were dissected free. Although the cystic artery was not individually identified, it was ligated wit h the Harmonic Scalpel. Then isolating the cystic duct, the edge of the common duct was well expose d and extended up into the liver bed. I could see the division of the right and left hepatic ducts. Once the anatomy was clearly delineated, the cystic duct was divided with an Endo-KILLIAN stapler. Th e gallbladder was placed in a specimen bag after being dissected off the liver bed and removed throu gh the upper trocar site. Hemostasis was carefully obtained. The wound was copiously irrigated. T he liver bed was covered with some Ld Powder and a 15 round silicone DAVID drain was brought out th rough one of the lower lateral trocar sites and placed in Morison's pouch in the gallbladder fossa, secured to the skin with a 3-0 Vicryl suture. The trocars were removed under direct vision. Trocar sites were closed with 0 Vicryl for the fascia, skin elsie for the skin and all areas were infilt rated with 0.5% Marcaine. Blood loss was negligible. She did develop some SVT during the procedure , which necessitated some haste in the dissection. She responded well to medications and was conver javid during the procedure. COMPLICATIONS: There were no complications other than the SVT. She taken to recovery room in good condition. /[id number]/MODL
--- NOTE | 2016-10-20 09:51 | PDINTPN ---
Public Health Program Manager Progress Note Assessment/Plan: Assessment: CAD s/p LAD stent. On Plavix. Waiting to re-start ASA PSVT: In Post-op. Aborted with adenosine. No further episodes Gastric ulcer with bleed: S/P endoscopic treatment. NO signs further bleeding Cholecystitis: S/P lap griffin 10/19. Pain controlled, stating PO Anemia: Hgb down 8.9->7.9 this morning. Plan: Repeat Hgb this afternoon. Continue on satellite project site monitor. Advance diet as per surgery. Increase activity. ? transfer to / or tele if Hgb stable 10/20/16 09:48 10/20/16 09:52 Subjective: Good pain control. Tolerating clear liquids well. Objective: Vital Signs Temp Pulse Resp BP Pulse Ox 36.4 C 75 13 112/63 94 10/20/16 07:57 10/20/16 09:00 10/20/16 09:00 10/20/16 09:00 10/20/16 09:00 Laboratory Results 10/20/16 05:25 10/20/16 05:25 10/19/16 10/20/16 10/21/16 05:59 05:59 05:59 Intake Total 700 1262.5 Output Total 1525 Balance 700 -262.5 PT 12.4 SEC (12.0-15.0) 10/16/16 07:41 INR 0.93 (0.83-1.16) 10/16/16 07:41 Physical Exam - Physical Exam General Appearance: alert, no apparent distress EENT: normal ENT inspection Neck: normal inspection Respiratory: lungs clear, normal breath sounds Cardiac/Chest: regular rate, rhythm, No edema Abdomen: normal bowel sounds, soft, No non-tender (mild RUQ tenderness) Skin: normal color, warm/dry Extremities: normal inspection Neuro/Psych: alert, normal mood/affect, oriented x 3 ICD10 Worksheet Patient Problems: Problems Problem Status Onset Choledocholithiasis Acute
--- NOTE | 2016-10-20 14:29 | HOSPPROG ---
Hospitalist Progress Note Assessment/Plan: assessment: 66-year-old female presents with sepsis in the setting of ascending cholangitis complicated by PEA arrest, shock, acute upper gastrointestinal hemorrhage and blood loss anemia Plan: # UGIB - 2/2 bleeding gastric ulcer, therapeutic endo and ppi gtt # acute blood loss anemia - 2/2 UGIB w/ decline in Hgb and requiring PRBC, stable - monitor Hgb, hold on transfusion today # CAD - 2 lesions of LAD identified on cath and stented, d/w Dr. John, we agreed to reinitiate ASA 81 EC tomorrow AM if no bleeding - cont metoprolol - cont plavix # PEA arrest - ECHO during arrest with severe RH failure, PE ruled out - Repeat ECHO improved # Acute hypoxic respiratory failure - evidenced by SpO2 84% w/ objective tachypnea, respiratory distress, requiring intubation, presumed due to pulmonary edema - IV lasix prn # Acute on chronic diastolic CHF, present on CXR, 2/2 IVF w/ septic shock, s/p diuresis # Cholangitis s/p ERCP with stent - HIDA with good GB visualization - no cholecystostomy tube - cont IV abx 24hrs beyond surg, stop in AM - advance diet per Dr. Alcantar, increase activity # Septic shock, POA, resolved # GABE - 2/2 hypovolemia, improving w/ IVF # Obesity BMI 36 # Below the knee DVT, POA - tiny on serial US - exam stable # proph - hold given bleed # diet - regular, hold in AM in case surgery # code - full # dispo - ADD uncertain Subjective: Patient reports bowel movement, uncertain whether dark colored, minimal abdominal pain today Objective: Vital Signs Temp Pulse Resp BP Pulse Ox 36.8 C 66 18 138/77 H 95 10/20/16 12:49 10/20/16 12:49 10/20/16 12:49 10/20/16 12:49 10/20/16 12:49 Laboratory Results 10/20/16 05:25 10/20/16 05:25 10/19/16 10/20/16 10/21/16 05:59 05:59 05:59 Intake Total 700 1262.5 Output Total 1525 Balance 700 -262.5 PT 12.4 SEC (12.0-15.0) 10/16/16 07:41 INR 0.93 (0.83-1.16) 10/16/16 07:41 - Pending Discharge Pending Discharge Within 48 Hours: Yes Pending Discharge Date: 10/22/16 Pending Discharge Time: 11:00 - Physical Exam Constitutional: no apparent distress, not in pain, obese, No uncomfortable Cardiovascular: regular rate and rhythym, no murmur, rub, or gallop, No irregularly irregular, No tachycardia, No edema Respiratory: reduced air movement (Bilateral bases), No expiratory wheeze, No inspiratory crackles, No bronchial breath sounds, No respiratory distress Gastrointestinal: normoactive bowel sounds, tenderness (Around the surgical site ), No guarding, No distension Neurologic: AAOx3, No facial droop Psychiatric: interacting appropriately, not anxious, not encephalopathic, thought process linear ICD10 Worksheet Patient Problems: Problems Problem Status Onset Choledocholithiasis Acute
--- NOTE | 2016-10-20 15:23 | SOAPPROG ---
VENKATESH Progress Note Assessment/Plan: Assessment: 66-year-old female with acute cholecystitis now status post cardiac stents Still needs cholecystectomy and preferably on this admission She will require Plavix for some time so not much point in waiting for cholecystectomy Plan: Lap choly this admission/will discuss with the patient's and cardiology in a.m. 10/16/16 22:37 10/19/16 17:39 MEDICINE AND CARDIOLOGY A READY FOR US TO DO A LAP CHOLY/SHE IS QUITE STABLE EVEN AFTER HER GI BLEED LAST NIGHT/IS NONICTERIC/STILL HAVING SOME RIGHT UPPER QUADRANT PAIN WITH EATING/NO FURTHER GI BLEEDING/ PLAN IS TO PROCEED LAP CHOLY TODAY/RISKS AND OPTIONS FULLY DISCUSSED AND SHE WISHED TO PROCEED 10/20/16 15:21 DOING WELL STATUS POST LAP CHOLY/AFEBRILE SLASH WOUND OKAY/DAVID DRAINAGE MINIMAL SEROSANGUINEOUS/LFTS ARE OKAY/NONICTERIC PLAN IS ADVANCED DIET/DC DAVID TOMORROW /HOME PER INTERNAL MEDICINE Objective: Vital Signs Temp Pulse Resp BP Pulse Ox 36.8 C 66 18 138/77 H 95 10/20/16 12:49 10/20/16 12:49 10/20/16 12:49 10/20/16 12:49 10/20/16 12:49 Laboratory Results 10/20/16 05:25 10/20/16 05:25 10/19/16 10/20/16 10/21/16 05:59 05:59 05:59 Intake Total 700 1262.5 Output Total 1525 Balance 700 -262.5 PT 12.4 SEC (12.0-15.0) 10/16/16 07:41 INR 0.93 (0.83-1.16) 10/16/16 07:41 ICD10 Worksheet Patient Problems: Problems Problem Status Onset Choledocholithiasis Acute
[2016-10-20 16:25] LABS: % IMMATURE GRANULYOCYTES 0.7 % (0.0-1.1); ABSOLUTE IMMATURE GRANULOCYTES 0.06 10^3/uL (0.00-0.10); ADD DIFF? NO; ADD MORPH? NO; ADD SCAN? NO; ATYPICAL LYMPHOCYTE FLAG 30 (0-99); FRAGMENT RBC FLAG 0 (0-99); HEMATOCRIT 25.4 % (38.0-47.0); HEMOGLOBIN 8.4 g/dL (12.6-16.3); LEFT SHIFT FLG 0 (0-99); LIPEMIA HEMOLYSIS FLAG 80 (0-99); MEAN CELL HEMOGLOBIN 30.1 pg (27.9-34.1); MEAN CELL HEMOGLOBIN CONCENTR. 33.1 g/dL (32.4-36.7); MEAN PLATELET VOLUME 9.3 fL (8.7-11.7); PLATELET CLUMPS FLAG 0 (0-99); PLATELET COUNT 320 10^3/uL (150-400); RED BLOOD CELL COUNT 2.79 10^6/uL (4.18-5.33); RED CELL DISTRIBUTION WIDTH 14.6 % (11.5-15.2)
[2016-10-20] MEDS: PANTOPRAZOLE SODIUM 40 MG TAB PO SCH (20:45)
--- NOTE | 2016-10-20 23:06 | SOAPPROG ---
SOAP Progress Note Assessment/Plan: Assessment: Plan: 10/18/16 09:00 GI note S/p EGD Gold probe. Esophagus, duodenal bulb, and second portion of the duodenum was normal in appearance. In the stomach, a large amount of blood clots was visualized with obscured most of the visualization of the fundus and proximal/mid gastric body. The antrum was normal in appearance. In the mid gastric body a 1cm ulcer was seen with oozing noted. No visible vessel was seen. Gold probe was utilized with complete cessation of the oozing. Rec: 1. PPI infusion 2. NPO 3. Recommend repeat EGD but can consider as outpatient in 6 weeks if no signs of active GI bleed. 4. Would consider resuming Plavix (benefits> risks?) 10/20/16 13:02 A/P 1. GI bleed- s/p EGD with ulcer seen in mid gastric body. Gold probe applied. No active signs of GI bleed. Recommend repeat EGD in about 6-8 weeks. At the time, would recommend ERCP with stent removal as well as screening colonoscopy. Will plan on f/u with Dr. Leslie. GI will sign off. Please call if needed. 2. Choledocholithiasis- needs stent removal at time of repeat EGD. 3. Screening colonoscopy 10/20/16 15:12 Subjective: cc: Follow up GI bleed No complaints. No recent bowel movement. Objective: Vital Signs Temp Pulse Resp BP Pulse Ox 36.6 C 77 17 100/68 93 10/20/16 19:25 10/20/16 20:45 10/20/16 19:25 10/20/16 20:45 10/20/16 19:25 Laboratory Results 10/20/16 14:00 10/20/16 05:25 10/19/16 10/20/16 10/21/16 05:59 05:59 05:59 Intake Total 700 1262.5 250 Output Total 1525 55 Balance 700 -262.5 195 PT 12.4 SEC (12.0-15.0) 10/16/16 07:41 INR 0.93 (0.83-1.16) 10/16/16 07:41 Physical Exam - Physical Exam General Appearance: alert, no apparent distress EENT: No scleral icterus (R), No scleral icterus (L) Respiratory: normal breath sounds Cardiac/Chest: regular rate, rhythm, systolic murmur, No bradycardia, No tachycardia, No diastolic murmur Abdomen: non-tender, soft, No guarding, No rebound, No ascites Neuro/Psych: normal mood/affect, oriented x 3, 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
[2016-10-21] MEDS: OXYCODONE/APAP 5/325 TAB PO PRN (03:55)
[2016-10-21 04:06] LABS: % IMMATURE GRANULYOCYTES 0.8 % (0.0-1.1); ABSOLUTE IMMATURE GRANULOCYTES 0.07 10^3/uL (0.00-0.10); ADD DIFF? NO; ADD MORPH? NO; ADD SCAN? NO; ATYPICAL LYMPHOCYTE FLAG 30 (0-99); FRAGMENT RBC FLAG 0 (0-99); HEMATOCRIT 25.7 % (38.0-47.0); HEMOGLOBIN 8.5 g/dL (12.6-16.3); LEFT SHIFT FLG 0 (0-99); LIPEMIA HEMOLYSIS FLAG 80 (0-99); MEAN CELL HEMOGLOBIN 30.2 pg (27.9-34.1); MEAN CELL HEMOGLOBIN CONCENTR. 33.1 g/dL (32.4-36.7); MEAN CELL VOLUME 91.5 fL (81.5-99.8); MEAN PLATELET VOLUME 9.2 fL (8.7-11.7); PLATELET CLUMPS FLAG 0 (0-99); PLATELET COUNT 366 10^3/uL (150-400); RED BLOOD CELL COUNT 2.81 10^6/uL (4.18-5.33); RED CELL DISTRIBUTION WIDTH 14.6 % (11.5-15.2)
[2016-10-21 04:22] LABS: ANION GAP 6 mEq/L (8-16); CALCIUM 8.4 mg/dL (8.5-10.4); CARBON DIOXIDE 25 mEq/l (22-31); CHLORIDE 109 mEq/L (97-110); GLOMERULAR FILTRATION RATE 56; GLUCOSE 93 mg/dL (70-100); POTASSIUM 4.4 mEq/L (3.5-5.2); SODIUM 140 mEq/L (134-144)
[2016-10-21] MEDS: MEROPENEM 1 GM in NS 100 ML IV SCH (08:03)
[2016-10-21] MEDS ORDERED: ASPIRIN EC 81 MG TAB PO SCH (09:00)
[2016-10-21] MEDS: METOPROLOL TARTRATE 25 MG TAB PO SCH (09:21)
[2016-10-21] MEDS: PANTOPRAZOLE SODIUM 40 MG TAB PO SCH (09:21)
[2016-10-21] MEDS: ENOXAPARIN 40 MG/0.4 ML SYR SC SCH (09:21)
[2016-10-21] MEDS: CLOPIDOGREL BISULFATE 75 MG TAB PO SCH (09:21)
[2016-10-21] MEDS ORDERED: LISINOPRIL 2.5 MG TAB PO SCH (10:00)
--- NOTE | 2016-10-21 10:09 | PDCARPN ---
Cardiology Progress Note Chief Complaint: Patient reports she would like to go home. Assessment/Plan: Assessment: 66-year-old female with no known history of cardiovascular disease prior to this hospitalization, underwent ERCP with bile ducts stenting October 09, in the procedure became hypoxic and hypotensive then arrested. Reported as either asystole or PEA, no VT or VF. Resuscitated with ACLS protocol. Post arrest echocardiogram did show significant RV dilation, questioning possible PE, CT negative for PE. RV improved on repeated echocardiogram. Cardiac catheterization diagnostic by Dr. Morin on October 16, 80-90% stenosis in proximal/mid LAD. LVEF 60%, no wall motion abnormalities. PCI performed same day by Dr. Mcclelland with 2 JEMAL implantation. Started dual anti therapy post PCI. 10/17, noted to have bloody stools with hypotension, underwent EGD by GI, found to have 1 cm ulcer in mid gastric body, was treated. Patient taken off of aspirin therapy, but continued on Plavix, underwent cholecystectomy by Dr. Alcantar on 10/19, was noted to have run of SVT during procedure. No complications. Today, patient reports no chest pain or pressure suggesting of ischemia, does have point tenderness on sternum, where CPR was performed. Denies of any shortness of breath or palpitations. Continuous cardiac monitoring showing sinus rhythm with no ectopy. BP stable. Positive bowel sounds x4 quadrants, patient resume with regular diet. Plan: 1. Status post cardiac arrest/CAD/PCI of LAD: Patient has been resumed on dual anti-platelet therapy of aspirin and clopidogrel today. Will potentially need to be on this for up to 1 year post PCI. On metoprolol, BP elevated, will add low-dose lisinopril today. Noted in past labs mild elevation of AST and ALT , will repeat in a.m., if decreased, consideration of starting her statin therapy for secondary risk prevention or potentially can be started as an outpatient. Cardiac rehab as an outpatient when stable. 2. SVT: Patient noted with SVT postoperative cholecystectomy, on beta-blockers , no further episodes noted on continuous accounts payable specialist 3. UGIB: s/p EGD and PRBC transfusion. H&H stable. Followed by GI 4. Gallbladder disease: Status post cholecystectomy 5. Hypoxic respiratory failure: Improved since arrest, patient on room air, SpO2 stable. 6. Acute renal insufficiency: Status post cardiac arrest, has improved, BUN creatinine within normal limits 10/21/16 10:05 Subjective: Patient reports point tenderness at sternal site where CPR was done, but no chest pressure pain suggesting of cardiac ischemia, No shortness breath, palpitations, lightheadedness, orthopnea, or syncope or syncopal events. Reviewed/Discussed With: other (Dr Marie) Objective: Vital Signs (8 Hrs) Temp Pulse Resp BP Pulse Ox 10/21/16 07:43 36.8 C 75 18 141/74 H 94 10/21/16 03:45 36.7 C 67 22 H 137/86 H 95 Intake/Output (24 Hrs) 10/20/16 10/21/16 10/22/16 05:59 05:59 05:59 Intake Total 1262.5 450 Output Total 1525 70 Balance -262.5 380 Intake: Oral (ml) 250 450 IV Intake (ml) 939 IV Infused (ml) 73.5 Pantoprazole Sodium 80 mg 73.5 In Ns 100 ml @ 10 mls/hr IV Q10H [facility] Rx#: [id number] Output: Urine (ml) 1325 Bedpan 725 Bedside Commode 600 Estimated Blood Loss (ml) 20 DAVID Drain Output (ml) 180 70 Abdomen 180 70 Other: Weight 97.7 kg Intake Quantity Yes Sufficient Number of Voids Toilet 1 Result Diagrams: 10/21/16 04:00 10/21/16 04:00 - Physical Exam Constitutional: no apparent distress, obese Ears, Nose, Mouth, Throat: moist mucous membranes Cardiovascular: regular rate and rhythm, no murmurs, no rubs, no gallops, pulses symmetric bilat, No jugular vein distention, No carotid bruit Peripheral Pulses: 1+: dorsalis-pedis (R), dorsalis-pedis (L), 2+: carotid (R), carotid (L) Respiratory: other ( Lungs are clear, but diminished in bases bilateral, no rhonchi, rales, wheezing noted.) Gastrointestinal: normoactive bowel sounds, tenderness ( At insertion sites from cholecystectomy), other ( dressings from cholecystectomy incisions clean dry and intact.) Skin: warm, other ( right groin site, catheter insertion site, with no redness, swelling, drainage, ecchymosis, or hematoma. No auscultated bruit over site.), No no edema ( Trace pedal edema extremities) Neurologic: AAOx3 Psychiatric: cooperative, interactive, following commands ICD10 Worksheet Patient Problems: Problems Problem Status Onset Choledocholithiasis Acute
--- NOTE | 2016-10-21 11:23 | SOAPPROG ---
VENKATESH Progress Note Assessment/Plan: Assessment: 66-year-old female with multiple medical issues now 2 days status post laparoscopic cholecystectomy From surgical standpoint, patient continues to do well, her DAVID remained serosanguineous in her abdomen is soft. She is tolerating regular diet without any issues. I removed her DAVID at the bedside today, okay with her to discharge home today if cleared from medical and cardiology standpoint. Will follow up with Dr. Alcantar in 7-10 days for routine postoperative visit. Plan: 10/21/16 11:22 Subjective: Doing well, feels well, anxious to go home Objective: Vital Signs Temp Pulse Resp BP Pulse Ox 36.8 C 75 18 141/74 H 94 10/21/16 07:43 10/21/16 07:43 10/21/16 07:43 10/21/16 07:43 10/21/16 07:43 Laboratory Results 10/21/16 04:00 10/21/16 04:00 10/20/16 10/21/16 10/22/16 05:59 05:59 05:59 Intake Total 1262.5 450 Output Total 1525 70 Balance -262.5 380 PT 12.4 SEC (12.0-15.0) 10/16/16 07:41 INR 0.93 (0.83-1.16) 10/16/16 07:41 ICD10 Worksheet Patient Problems: Problems Problem Status Onset Choledocholithiasis Acute
[2016-10-21 12:10] VITALS: RESP 16
--- NOTE | 2016-10-21 13:00 | PDDCSUM ---
Discharge Summary Discharge Summary: DISCHARGE SUMMARY FOLLOW-UP ITEMS: Repeat ERCP with stent removal in 6-8 weeks, consider outpatient statin and NEREIDA- inhibitor DATE OF ADMISSION: 10/08/2016 DATE OF DISCHARGE: 10/21/2016 DISCHARGE DIAGNOSES: 1. Septic shock present on admission 2. Cholangitis and subacute cholecystitis 3. Acute kidney injury 4. PEA arrest 5. Acute hypoxic respiratory failure 6. Obstructive coronary artery disease 7. Acute upper gastrointestinal hemorrhage 8. Acute Blood loss anemia 9. Acute on chronic diastolic and systolic congestive heart failure 10. Obesity with BMI 36 11. [id number] deep venous thrombosis present on admission CONSULTATIONS: Cardiology, Pulmonary Critical Care, Nephrology, Gastroenterology PROCEDURES / IMAGIN10/09/2016 ERCP with biliary stent placement the, 10/09/2016 PICC line insertion and intubation, 10/16/2016 cardiac catheterization with LAD stent placement, 10/18 laparoscopic cholecystectomy CHIEF COMPLAINT: Acute abdominal pain SUBJECTIVE: Minimal abdominal pain, transferring well, moving her bowels PHYSICAL EXAM ON DISCHARGE: Systolic blood pressure 90-140, heart rate 60, afebrile overnight, satting well on room air, abdomen is soft, nontender, bowel sounds are present, breath sounds are clear to auscultation bilaterally, no lower extremity edema, heart rate is regular regular rhythm and 1/6 systolic murmur at the sternum LABS ON DISCHARGE: Hemoglobin 8.5, white blood cell count 8900, potassium 4.4, creatinine 1 HOSPITAL COURSE BY PROBLEM: The patient presented with abdominal pain 2/2 cholangitis, subacute cholecystitis, and sepsis. She underwent ERCP, stent placement, and then had a PEA arrest. She had return of circulation after a dose of epi and initiation of CPR. She was found to have acute pulmonary edema and severe right-sided CHF, as well as shock physiology, requiring intubation and pressors. Diuretics were then administered, and she was extubated successfully, having good return of cognitive function. She was taken to the hatchery laborer and had two obstructive lesions on LAD, stented. She subsequently experienced UGIB on dual-anti- platelet therapy, underwent EGD, had a gastric lesion identified and cauterized , and bleeding subsided, requiring a transfusion. She then underwent CCY and recovered well post-operatively. 1. Septic shock. Present on admission, evidenced by sepsis-3 criteria including hypertension, acute encephalopathy, acute hypoxic respiratory failure , acute kidney injury, with hypotension requiring multiple pressors, secondary to autonomic dysregulation in the setting of cholangitis, requiring syrup NM and empiric IV fluids. 2. Cholangitis and subacute cholecystitis. Patient's initial chief complaint was abdominal pain secondary to cholangitis requiring ERCP with stent placement , empiric meropenem, as well as empiric cholecystectomy for subacute cholecystitis. The patient's condition stabilized and her liver enzymes were down trending at time of discharge. She will have repeat liver enzymes as an outpatient which will help guide initiation of statin placement from the cardiology office. She will require ERCP and stent removal in 6-[address] Leslie. 3. Acute kidney injury. Secondary to hypovolemia, responded to IV fluids and creatinine normalized. 4. Acute hypoxic respiratory failure. Evidenced by SpO2 of 84% with objective tachypnea, respiratory distress, requiring intubation, a dense infiltrates on chest x-ray, presumed to be secondary to pulmonary edema. Patient required diuresis as well as ventilatory stabilization. She is currently satting well on room air at time of discharge and has completely recovered. 5. Pulseless electrical activity arrest. The patient experienced cardiac arrest following ERCP it was believed to be secondary to a combination of diastolic congestive heart failure as well as obstructive coronary disease with echocardiogram demonstrating severe right-sided heart failure. Pulmonary embolism was ruled out with CT angiography and repeat echocardiogram demonstrated improvement in right ventricle function. She underwent cardiac catheterization which will be further discussed below. 6. Obstructive coronary artery disease. Patient has obstructive coronary disease contributed to her cardiac arrest as well as CHF. She went to the hatchery laborer and had 2 lesions on her left anterior descending artery which were identified and stented. She temporarily had her aspirin and Plavix interrupted in the setting of acute GI bleed and these have both been re-initiated without further evidence of bleeding. Patient was initiated on a beta-nieves and lab sublingual nitroglycerin prescribed at time of discharge. She will follow up with Dr. Mcclelland and statin and NEREIDA-inhibitor will be considered. 7. Acute on chronic diastolic and systolic congestive heart failure. Evidenced by dense pulmonary infiltrates following ERCP and potentially contributing to her PEA arrest, or a result of PEA arrest. Causing hypoxic respiratory failure. Original echo demonstrating severe right ventricular dysfunction. Diastolic dysfunction also present. She required intubation, diuresis, echo improved. 8. Acute upper gastrointestinal hemorrhage. Secondary to bleeding gastric ulcer in the setting of dual anti-platelet therapy. She required therapeutic EGD with intervention as well as IV PPI drip. She I was adjusted to oral twice daily, and she will be continued on this for approximately 6 weeks. 9. Acute blood loss anemia. Secondary to upper gastrointestinal hemorrhage with decline in hemoglobin requiring blood transfusion. Hemoglobin level has stabilized. She will have repeat CBC performed with her outpatient labs 10. [id number] deep venous thrombosis. Present on admission, small clot present on ultrasound no evidence of pulmonary emboli on CT angiogram. Systemic anticoagulation was initiated when she experienced shock but then was subsequently discontinued after the CT angiogram demonstrated no pulmonary emboli. She has been on prophylactic Lovenox during the remainder of her hospitalization and should receive outpatient reassessment if she has any physical exam evidence of lower extremity edema. DISCHARGE MEDICATIONS: Please see official discharge medication reconciliation sheet in chart , aspirin 81 mg daily, Plavix 75 mg daily, metoprolol 25 mg twice daily, sublingual nitroglycerin as needed, pantoprazole 40 mg twice daily. DISCHARGE INSTRUCTIONS: Please follow up with the cardiology office next week, follow up with Dr. gómez in 6-8 weeks, follow up with Dr. Alcantar in 1 week. TIME SPENT: Greater than 30 minutes were spent on direct patient care, as well as discharge planning and preparation.
--- NOTE | 2016-10-21 13:02 | PDIAF ---
- Diagnosis Diagnosis: Cholangitis/Sub-acute cholecystitis, Obstructive CAD, UGIB Code Status: Full Code - Medication Management Discharge Medications: Medications to Continue on Transfer Aspirin EC [Aspirin EC 81 mg (*)] 81 mg PO DAILY #30 tab 10/21/16 [Last Taken Unknown] Clopidogrel Bisulfate [Plavix (*)] 75 mg PO DAILY #30 tab 10/21/16 [Last Taken Unknown] Metoprolol Tartrate [Lopressor 25 mg (*)] 25 mg PO BID #60 tab 10/21/16 [Last Taken Unknown] Nitroglycerin [Nitrostat 0.4 mg (*)] 0.4 mg SL PRN PRN #20 btl 10/21/16 [Last Taken Unknown] Pantoprazole Sodium [Protonix 40mg (*)] 40 mg PO BID #60 tab 10/21/16 [Last Taken Unknown] oxyCODONE IR [Oxycodone Ir (*)] 2.5 - 10 mg PO Q4 PRN #40 tab 10/21/16 [Last Taken Unknown] Detention Antibiotics: NA Discharge Medications: Refer to the Discharge Home Medication list for PRN reason. PICC Care - Routine: N/A - Orders Services needed: Home Care, Registered Nurse, Physical Therapy, Occupational Therapy Home Care Face to Face: I certify that this patient was under my care and that I had the required [id number] encounter meeting the encounter requirements on the discharge day. My findings support the fact that the patient is homebound as defined in CMS Chapter 7 Medicare Benefits Manual 30.1.1, The condition of the patient is such that there exists a normal inability to leave home and consequently, leaving home would require a considerable and taxing effort. Oxygen: NA Diet Recommendation: cardiac -low fat low salt Diet Texture: Thin Liquids, Meds Whole w/Liquids Weigh Patient: weekly Herrera: Not applicable Sutures/Corin Site: abdomen Date to Remove Sutures/Avalon: 10/27/16 (at Dr. Alcantar' office) - Labs/Radiology CBC Date: 10/26/16 CMP Date: 10/26/16 Call or Fax Lab and Imaging Results to: Dr. Mcclelland, Dr. Leslie - Follow Up Care Current Providers and Referrals: Yoni Alcantar MD [Medical Doctor] - follow up in 10 days Evin Leslie MD [Medical Doctor] - (please contact office to schedule ERCP and stent removal in 6-8 weeks) NONE *PRIMARY CARE P,. [Primary Care Provider] - As per Instructions Thien Mcclelland MD [Medical Doctor] - ( Office will call you to set a one- week follow-up appointment)
[2016-10-21 16:06] VITALS: BP 127/89; PULSE 77; TEMP 98.1; O2SAT 95
== END 2016-10-21 17:02 | disposition home health service (06) | DRG 853 ==
LOC: F1N 16:32 → F2N 10-09 08:04 → F2W 10-14 16:00 → F2N 10-18 00:41 → F2W 10-20 12:52
PROVIDERS: ADMIT Family Medicine; ATTEND Family Medicine
PROC: 0F794DZ Dilation of Common Bile Duct with Intraluminal Device, Percutaneous Endoscopic Approach (ICD-10-PCS; 2016-10-09)
PROC: 0BH17EZ Insertion of Endotracheal Airway into Trachea, Via Natural or Artificial Opening (ICD-10-PCS; 2016-10-09)
PROC: 5A1945Z Respiratory Ventilation, 24-96 Consecutive Hours (ICD-10-PCS; 2016-10-09)
PROC: 02HV33Z Insertion of Infusion Device into Superior Vena Cava, Percutaneous Approach (ICD-10-PCS; 2016-10-09)
PROC: 027035Z Dilation of Coronary Artery, One Artery with Two Drug-eluting Intraluminal Devices, Percutaneous Approach (ICD-10-PCS; 2016-10-16)
PROC: B2151ZZ Fluoroscopy of Left Heart using Low Osmolar Contrast (ICD-10-PCS; 2016-10-16)
PROC: 4A023N7 Measurement of Cardiac Sampling and Pressure, Left Heart, Percutaneous Approach (ICD-10-PCS; 2016-10-16)
PROC: B2111ZZ Fluoroscopy of Multiple Coronary Arteries using Low Osmolar Contrast (ICD-10-PCS; 2016-10-16)
PROC: 30233N1 Transfusion of Nonautologous Red Blood Cells into Peripheral Vein, Percutaneous Approach (ICD-10-PCS; 2016-10-17)
PROC: 0W3P8ZZ Control Bleeding in Gastrointestinal Tract, Via Natural or Artificial Opening Endoscopic (ICD-10-PCS; 2016-10-18)
PROC: 0DB68ZX Excision of Stomach, Via Natural or Artificial Opening Endoscopic, Diagnostic (ICD-10-PCS; 2016-10-18)
PROC: 0FT44ZZ Resection of Gallbladder, Percutaneous Endoscopic Approach (ICD-10-PCS; principal; 2016-10-18 08:00)
DX: A41.9 Sepsis, unspecified organism (principal); R65.21 Severe sepsis with septic shock; K80.43 Calculus of bile duct with acute cholecystitis with obstruction; I46.8 Cardiac arrest due to other underlying condition; J96.01 Acute respiratory failure with hypoxia; K25.0 Acute gastric ulcer with hemorrhage; I25.10 Atherosclerotic heart disease of native coronary artery without angina pectoris; D62 Acute posthemorrhagic anemia; N17.9 Acute kidney failure, unspecified; E86.1 Hypovolemia; I50.43 Acute on chronic combined systolic (congestive) and diastolic (congestive) heart failure; I82.4Z2 Acute embolism and thrombosis of unspecified deep veins of left distal lower extremity; E27.8 Other specified disorders of adrenal gland; E66.01 Morbid (severe) obesity due to excess calories; Z68.36 Body mass index [BMI] 36.0-36.9, adult
CPT/HCPCS: 82947-QW; 85520-90; 92507-GN; 92523-GN; 92610-GN; 96374; 97116-GP; 97163-GP; 97164-GP; 97166-GO; 97530-GO; 97530-GP; 97535-GO; A9537; C1751; C1760; C1769; C1874; C1887; C2625; C9600; G8978-GP-CK; G8978-GP-CL; G8979-GP-CI; G8979-GP-CJ; G8987-GO-CL; G8988-GO-CJ; G8996-GN-CH; G8997-GN-CH; G8998-GN-CH; G9165-GN-CJ; G9166-GN-CI; J0153; J0171; J0330; J0461; J0583; J0610; J1100; J1170; J1265; J1335; J1610; J1644; J1650; J1885; J1940; J1956; J2185; J2250; J2370; J2405; J2704; J2997; J3010; J3370; J3475; P9016; P9041; Q9961; Q9967

== ENCOUNTER → 2016-11-14 | Outpatient (CLI) | payer OTHER, MEDICAID | LOC: FIMAGING 13:41 | PROVIDERS: ATTEND Internal Medicine Gastroenterology | DX: K83.1 Obstruction of bile duct (principal) ==

== ENCOUNTER 2016-12-08 08:26 | Day surgery (SDC) | payer OTHER, MEDICAID ==
[2016-12-08] MEDS ORDERED: LR 1,000 ML IV ONE (09:18)
[2016-12-08] MEDS ORDERED: LIDOCAINE 1% 2 ML INJ ID PRN (09:18)
[2016-12-08] MEDS ORDERED: GLUCAGON,HUMAN RECOMBINANT 1 MG VIAL ONE (09:29)
[2016-12-08] MEDS ORDERED: IOTHALAMATE MEG (CONRAY) 50 ML VIAL IV ONE (09:30)
--- NOTE | 2016-12-08 09:33 | PDANEPAE ---
ANE History of Present Illness Possible stones ANE Past Medical History - Cardiovascular History Hx Hypertension: No Hx Arrhythmias: Yes Hx Chest Pain: No Hx Coronary Artery / Peripheral Vascular Disease: Yes Hx CHF / Valvular Disease: No Hx Palpitations: No Cardiovascular History Comment: PEA with last ERCP in September. 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 currently in cardiac rehab. dvt present on admit in september. hyperlipidemia - Pulmonary History Hx COPD: No Hx Asthma/Reactive Airway Disease: No Hx Recent Upper Respiratory Infection: No Hx Oxygen in Use at Home: No Hx Sleep Apnea: No Sleep Apnea Screening Result - Last Documented: Negative - Neurologic History Hx Cerebrovascular Accident: No Hx Seizures: No Hx Dementia: No - Endocrine History Hx Diabetes: No - Renal History Hx Renal Disorders: No - Liver History Hx Hepatic Disorders: No - Neurological & Psychiatric Hx Hx Neurological and Psychiatric Disorders: No - Cancer History Hx Cancer: No - Congenital Disorder History Hx Congenital Disorders: No - GI History Hx Gastrointestinal Disorders: Yes Gastrointestinal History Comment: acute cholecystitis- septic when admitted 05/19. griffin. ercp with stent placed. upper gib after cardiac stent placed in september as well - Other Health History Other Health History: wears reading glasses. redness to cheeks and face - Chronic Pain History Chronic Pain: No - Surgical History Prior Surgeries: ercp. cardiac cath- stent placed. griffin ANE Review of Systems Review of Systems: - Exercise capacity METS (RN): 4 METS ANE Patient History - Allergies Allergies/Adverse Reactions: Penicillins Allergy (Verified 11/30/16 16:34) Other-Enter Comments - Home Medications Home Medications: Aspirin EC [Aspirin EC 81 mg (*)] 11/30/16 [Last Taken Unknown] Atorvastatin Calcium 11/30/16 [Last Taken Unknown] Clopidogrel Bisulfate [Plavix (*)] 11/30/16 [Last Taken Unknown] Metoprolol Tartrate [Lopressor 25 mg (*)] 11/30/16 [Last Taken Unknown] Nitroglycerin [Nitrostat 0.4 mg (*)] PRN 11/30/16 [Last Taken Unknown] Pantoprazole Sodium [Protonix 40mg (*)] 11/30/16 [Last Taken Unknown] Tylenol 325mg (*) 11/30/16 [Last Taken Unknown] oxyCODONE IR [Oxycodone Ir (*)] 11/30/16 [Last Taken Unknown] - NPO status NPO Since - Liquids (Date): 12/08/16 NPO Since - Liquids (Time): 08:00 NPO Since - Solids (Date): 12/28/16 NPO Since - Solids (Time): 19:00 - Anes Hx Hx Anesthesia Complications (with details): Had cardiac arrest with GI procedure. Followed by heart cath and stnedt placment. - Smoking Hx Smoking Status: Never smoked - Family Anes Hx Family Hx Anesthesia Complications: none ANE Labs/Vital Signs - Vital Signs Height: 162.56 cm Weight: 94.3 kg ANE Physical Exam - Airway Neck exam: FROM Mallampati Score: Class 2 Mouth exam: normal dental/mouth exam - Pulmonary Pulmonary: no respiratory distress - Cardiovascular Cardiovascular: regular rate and rhythym - ASA Status ASA Status: III ANE Anesthesia Plan Anesthesia Plan: general endotracheal anesthesia
[2016-12-08] MEDS ORDERED: levOFLOXACIN 500 MG/DEXTROSE/100 ML BAG IV ONE (09:55)
[2016-12-08] MEDS ORDERED: INDOMETHACIN 50 MG SUPP PR ONE (09:56)
[2016-12-08] MEDS ORDERED: ROCURONIUM 50 MG/5 ML VIAL ONE (10:04)
[2016-12-08] MEDS ORDERED: fentaNYL 100 MCG/2 ML INJ ONE (10:04)
[2016-12-08] MEDS ORDERED: PROPOFOL 200 MG/20 ML VIAL ONE (10:04)
[2016-12-08] MEDS ORDERED: ONDANSETRON 4 MG/2 ML VIAL IVP PRN (10:21)
[2016-12-08] MEDS ORDERED: fentaNYL 100 MCG/2 ML INJ IVP PRN (10:21)
[2016-12-08] MEDS ORDERED: NALOXONE HCL 0.4 MG/ML INJ IVP PRN (10:21)
--- NOTE | 2016-12-08 10:26 | PDGENHP ---
History & Physical Chief Complaint: choledochocholithiasis History of Present Illness: 66 year old female presents for biliary decompression Pertinent Past, Social, Family History: PMHx: CAD,DM. SurgHx: CCY. FamHx: No pancreatic cancer Relevant Physical Exam: HEENT: anicteric. CV: RRR +s1s2. Lungs: CTAB. ABD; soft, nt + BS Cardiorespiratory Assessment: ASA 3
[2016-12-08] MEDS ORDERED: DEXAMETHASONE 4 MG/ML VIAL ONE (10:27)
[2016-12-08] MEDS ORDERED: ONDANSETRON 4 MG/2 ML VIAL ONE (10:29)
--- NOTE | 2016-12-08 11:04 | POSTOPPROG ---
Post Op Note Date of Operation: 12/08/16 Surgeon: Rory Taylor Anesthesia: IV Sedation Pre-op Diagnosis: choledocholithiasis Post-op Diagnosis: choledocholithiasis Indication: CBD stones Procedure: ERCP with stent Findings: EWRCP with stone removal Inf/Abcess present in the surg proc area at time of surgery?: No EBL: Minimal
--- NOTE | 2016-12-08 11:38 | GPN ---
[f rep st] PROCEDURE NOTE DATE OF PROCEDURE: 12/08/2016 PROCEDURE: Endoscopic retrograde cholangiopancreatography with stent exchange, stone extraction. INDICATIONS: The patient is a 66-year-old female with multiple medical problems who presents for biliary decompression. She had a recent ERCP with multiple large stones seen in the CBD which could not be extracted. CONSENT: The risks, benefits, and alternatives of the procedure were discussed in great detail with the patient. The risks of infection, bleeding, perforation , sedation, and pancreatitis were discussed. All questions were answered and informed consent was obtained. MEDICATIONS: 1. General anesthesia. Please see Anesthesia record for details. 2. Levaquin 500 mg IV x1. 3. Indomethacin rectal 100 mg x1. ESTIMATED BLOOD LOSS: Insignificant. ERCP EXAMINATION: The Olympus duodenoscope was introduced into the mouth and advanced to the second portion of the duodenum. Emanating from the ampulla, was a 10-[place] stent. This was snared and removed with the scope. The scope was then reintroduced and passed to the ampulla. Evidence of a prior sphincterotomy was visualized. Using a [employer] sphincterotome and a 0.035 inch wire, a wire was advanced into the common bile duct and intrahepatics using the wire guided technique. No pancreatic manipulation or injection was made. A cholangiogram was performed. The cholangiogram was interpreted by me in real time. Flow of contrast was adequate with adequate visualization. The whole biliary tree was visualized. Multiple large stones of about 1cm were seen in the distal duct. Multiple balloon sweeps were initially made with a 9-12 mm balloon with significant extraction of debris. Two balloons were broken on a suspected hard stone in the distal duct. Multiple sweeps were made with a 12-15 mm balloon with significant extraction of stones, as well as debris. The balloon did break twice. There did appear to be a 1.2 cm stone in the distal duct which could not be extracted. A 10-[place] x 7 cm stent was placed. Excellent flow of bile was noted. Excess air was suctioned and procedure terminated. IMPRESSION/RECOMMENDATIONS: 1. Choledocholithiasis- status post extraction with still persistent hard stonesin the distal duct. At this time, I recommend a repeat procedure in 6 weeks with SpyGlass with lithotripsy. 2. Ciprofloxacin 500 mg p.o. twice daily x5 days. 3. Clear liquid diet until tomorrow. /[id number]/MODL MTDD
[2016-12-08 11:54] VITALS: BP 171/101; RESP 15; O2SAT 94
[2016-12-08 12:19] VITALS: TEMP 97.5
== END 2016-12-08 13:25 | disposition home or self-care (01) ==
LOC: FSGY 08:26
PROVIDERS: ATTEND Internal Medicine Gastroenterology
PROC: 0F798DZ Dilation of Common Bile Duct with Intraluminal Device, Via Natural or Artificial Opening Endoscopic (ICD-10-PCS; principal; 2016-12-08 09:45)
PROC: 0FC98ZZ Extirpation of Matter from Common Bile Duct, Via Natural or Artificial Opening Endoscopic (ICD-10-PCS; principal; 2016-12-08 09:45)
PROC: 0FPB8DZ Removal of Intraluminal Device from Hepatobiliary Duct, Via Natural or Artificial Opening Endoscopic (ICD-10-PCS; principal; 2016-12-08 09:45)
DX: K80.50 Calculus of bile duct without cholangitis or cholecystitis without obstruction (principal); I25.10 Atherosclerotic heart disease of native coronary artery without angina pectoris; Z88.0 Allergy status to penicillin
CPT/HCPCS: C2625; J1100; J1610; J1956; J2405; J2704; J3010; Q9961